=== PATIENT | female | born 1945 | race African-American/Black ===

== ENCOUNTER → 2018-05-19 14:25 | Outpatient (CLI) | payer MEDICARE, MEDICAID, SELFPAY ==
[2018-05-19 16:14] LABS: Basophils # 0.1 K/mm3 (0-0.2); Basophils % 0.9 % (0.1-2.0); Eosinophils % 0.3 % (0.1-12.0); Hematocrit 54.7 % (37.0-47.0); Hemoglobin 16.3 g/dL (12.2-16.2); Lymphocytes # 1.5 K/mm3 (0.7-4.5); Lymphocytes % 28.7 K/mm3 (10-50); Mean Corpuscular HGB Conc 29.7 g/dL (31.8-35.4); Mean Platelet Volume 7.6 fl (7.4-10.4); Monocytes # 0.4 K/mm3 (0.1-1.0); Monocytes % 7.3 % (1.7-9.3); Neutrophils # 3.3 K/mm3 (1.8-7.8); Neutrophils % 62.8 % (37.0-80.0); Platelet Count 221 K/mm3 (142-424); Red Blood Count 5.82 M/mm3 (4.20-5.40); Red Cell Distribution Width 16.6 % (11.5-17.5); White Blood Count 5.2 K/mm3 (4.8-10.8)
[2018-05-19 18:20] LABS: Alanine Aminotransferase 16 U/L (12-78); Albumin Level 4.2 gm/dL (3.4-5.0); Albumin/Globulin Ratio 0.9 (1.1-1.8); Alkaline Phosphatase 130 U/L (46-116); Anion Gap 12.8 mEq/L (5-15); Aspartate Amino Transferase 11 U/L (15-37); Bilirubin,Total 0.7 mg/dL (0.2-1.0); Blood Urea Nitrogen 16 mg/dL (7-18); Calcium 9.7 mg/dL (8.5-10.1); Carbon Dioxide 29 mmol/L (21.0-32.0); Chloride 102 mmol/L (98-107); Creatinine,Serum 1.04 mg/dL (0.55-1.02); Estimated Glomerular Filt Rate 52 ml/min (>60); GFR (African American) 63 ML/MIN (>60); Globulin 4.8 gm/dl (1.3-3.2); Glucose 74 mg/dL (74-106); Potassium 4.8 mmoL/L (3.5-5.1); Sodium 139 mmol/L (136-145)
== END ==
PROVIDERS: Visit Provider Nurse Practitioner
DX: C50.912 Malignant neoplasm of unspecified site of left female breast (principal); R63.4 Abnormal weight loss
CPT/HCPCS: 36415; 80053; 85025

== ENCOUNTER → 2018-05-21 14:55 | Outpatient (CLI) | payer MEDICARE, MEDICAID, SELFPAY ==
--- NOTE | 2018-05-21 14:59 | MM_ITS ---
MM Dig mamm DX unilat LT CAD COMPARISON: Digital mammograms with CAD 10/01/2017 INDICATION: The patient has known left breast cancer post biopsy and currently on medication per Dr. Porras TECHNIQUE: Cc view, exaggerated cc view ,standard MLO view and 90 degrees lateral view FINDINGS: There has been interval growth of the biopsy site since the previous exam with suspicious somewhat spiculated borders more evident on today's study than on the previous mammogram. The remainder of the breast parenchyma shows rather heterogenic appearance. There is no obvious abnormal adenopathy in the axilla. IMPRESSION: Interval growth of the patient's known breast cancer 6:00 position with biopsy clip in place area measurements of the lesion in the MLO projection a 1.7 x 1.2 cm whereas previously the lesion measured 1.2 x 0.8 cm. BI-RADS Category: 5 Highly Suggestive of Malignancy RECOMMENDED FOLLOW-UP: 6M - 6 MONTH FOLLOW-UP (A letter has been sent to the patient regarding results of the study.)
== END ==
PROVIDERS: Family Provider Emergency Medicine; PCP Emergency Medicine; Visit Provider Internal Medicine
DX: C50.912 Malignant neoplasm of unspecified site of left female breast (principal); R63.4 Abnormal weight loss
CPT/HCPCS: 77065

== ENCOUNTER → 2018-06-10 07:46 | Outpatient (CLI) | payer MEDICARE, MEDICAID, SELFPAY ==
[2018-06-10 08:08] LABS: Basophils % 0.7 % (0.1-2.0); Eosinophils # 0.1 K/mm3 (0.0-0.4); Hematocrit 51.9 % (37.0-47.0); Hemoglobin 16.1 g/dL (12.2-16.2); Lymphocytes # 1.3 K/mm3 (0.7-4.5); Lymphocytes % 27.1 K/mm3 (10-50); Mean Corpuscular HGB Conc 30.9 g/dL (31.8-35.4); Mean Corpuscular Hemoglobin 28.1 pg (27.0-31.2); Mean Platelet Volume 6.2 fl (7.4-10.4); Monocytes # 0.3 K/mm3 (0.1-1.0); Monocytes % 6.5 % (1.7-9.3); Neutrophils % 64.8 % (37.0-80.0); Platelet Count 152 K/mm3 (142-424); Red Blood Count 5.71 M/mm3 (4.20-5.40); Red Cell Distribution Width 17.1 % (11.5-17.5); White Blood Count 4.7 K/mm3 (4.8-10.8)
[2018-06-10 08:19] LABS: Alanine Aminotransferase 15 U/L (12-78); Albumin Level 3.4 gm/dL (3.4-5.0); Albumin/Globulin Ratio 0.8 (1.1-1.8); Alkaline Phosphatase 109 U/L (46-116); Anion Gap 10.1 mEq/L (5-15); Aspartate Amino Transferase 7 U/L (15-37); Bilirubin,Total 0.7 mg/dL (0.2-1.0); Blood Urea Nitrogen 10 mg/dL (7-18); Carbon Dioxide 33 mmol/L (21.0-32.0); Chloride 105 mmol/L (98-107); Creatinine,Serum 1.09 mg/dL (0.55-1.02); Estimated Glomerular Filt Rate 49 ml/min (>60); GFR (African American) 60 ML/MIN (>60); Globulin 4.1 gm/dl (1.3-3.2); Glucose 86 mg/dL (74-106); Potassium 4.1 mmoL/L (3.5-5.1); Sodium 144 mmol/L (136-145); Total Protein,Serum 7.5 gm/dL (6.4-8.2)
--- NOTE | 2018-06-10 09:16 | US_ITS ---
US biopsy guidance, US breast LT complete HISTORY: Left breast mass, history of breast cancer ITS.REASON: HEMANGIOLA ORDERING PHYSICIAN: Francisco Cook MD PATIENT AGE: 72 years COMPARISON: 05/21/2018 Left breast ultrasound: Previous mammogram showed an enlarging spiculated lesion in the biopsy bed in the inferior aspect of the left breast. Prebiopsy images confirm the presence of a 1.9 x 0.7 x 1 cm nodule in the left breast at the 6:00 region near the nipple. This is hypoechoic with spiculated margins and poor through transmission of sound highly suspicious for breast cancer. This was the nodule that was targeted for biopsy. TECHNIQUE: Following obtaining informed consent, using aseptic technique and local anesthesia with buffered lidocaine, fine-needle aspiration was performed of the nodule of interest using sonographic guidance. 3 passes were made into the nodule with with a 21-gauge and then a 19-gauge needle. Specimen was given to cytology. The patient tolerated the procedure well without evidence of immediate complications and left the ultrasound suite in stable condition. CYTOLOGY: Invasive mammary carcinoma with ductal features IMPRESSION: Left breast biopsy demonstrates invasive mammary carcinoma with ductal features. No immediate complications
== END ==
PROVIDERS: Family Provider Emergency Medicine; PCP Emergency Medicine; Visit Provider Internal Medicine
DX: R92.8 Other abnormal and inconclusive findings on diagnostic imaging of breast (principal); C50.412 Malignant neoplasm of upper-outer quadrant of left female breast
CPT/HCPCS: 19083; 36415; 76641; 76942; 80053; 85025; 88173; 88305

== ENCOUNTER → 2018-07-13 10:28 | Outpatient (CLI) | payer MEDICARE, MEDICAID, SELFPAY ==
--- NOTE | 2018-07-13 10:31 | CT_ITS ---
CT chest w con HISTORY: Follow-up breast cancer, follow-up pulmonary nodule ITS.REASON: breast cancer ORDERING PHYSICIAN: Chica Medina MD PATIENT AGE: 72 years COMPARISON: 10/05/2017 TECHNIQUE: Axial images obtained following the administration of 75 mL of Isovue 370 . Sagittal, and coronal reformatted images are also generated and reviewed. All CT scans at the facility use one or more dose reduction, viz: automated exposure control, ma/kV adjustment per patient size (including targeted exams where dose is matched to indication, i.e. head), or iterative reconstruction technique. 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 Coronary artery calcifications are present. No mediastinal or hilar mass or adenopathy. Coronary artery calcifications are present. No evidence of aortic aneurysm or dissection. No central pulmonary embolus apparent. There are moderate to severe centrilobular emphysematous changes with pulmonary fibrosis. There is a 6 mm right middle lobe pulmonary nodule not significant changed. There are atelectatic changes in the lung bases. No new nodules are evident. No effusions or infiltrates. Dependent changes are present in the left upper lobe posteriorly. No acute bony anomalies. Postsurgical changes are present involving the left breast. IMPRESSION: 1. Stable CT appearance of the chest with no convincing evidence of metastatic disease. 2. Centrilobular emphysema with pulmonary fibrosis 3. Stable 6 mm right middle lobe nodule
--- NOTE | 2018-07-13 10:31 | CT_ITS ---
CT abdomen pelvis w con CLINICAL INDICATION: Follow-up breast cancer ITS.REASON: breast cancer ORDERING PHYSICIAN: Chica Medina MD PATIENT AGE: 72 years COMPARISON: 11/23/2015 TECHNIQUE: Axial images obtained with sagittal and coronal reformats. All CT scans at the facility use one or more dose reduction, viz: automated exposure control, ma/kV adjustment per patient size (including targeted exams where dose is matched to indication, i.e. head), or iterative reconstruction technique. PROCEDURE: Oral Contrast: Redicat IV Contrast: 75 mL's of Isovue-370 performed in conjunction with the chest CT. FINDINGS: The liver, spleen, and pancreas have an unremarkable appearance. Gallstones are noted.. There is diffuse bilateral renal scarring with cortical irregularity of both kidneys. There are nonobstructing bilateral renal calculi measuring up to 4 mm on the right and 4 mm on the left. The adrenal glands aren't enlarged bilaterally similar to the previous exam probably related to adenomatous formation. There is a moderate amount of colonic feces in the rectum consistent with rectal fecal impaction. No intestinal obstruction or free air. No evidence of appendicitis or diverticulitis. There are gas-filled loops small and large bowel which are nondilated. 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 Fibrous dysplasia is also a consideration. This is not significant changed IMPRESSION: 1. Overall stable CT appearance of the abdomen and pelvis with no convincing evidence of metastatic disease. 2. Bilateral adrenal enlargement related to adenomatous 3. 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 Rectal fecal impaction
== END ==
PROVIDERS: Family Provider Emergency Medicine; PCP Emergency Medicine; Visit Provider Internal Medicine Medical Oncology
DX: C50.919 Malignant neoplasm of unspecified site of unspecified female breast (principal)
CPT/HCPCS: 71260; 74177; Q9967

== ENCOUNTER → 2018-08-09 15:45 | Outpatient (CLI) | payer MEDICARE, MEDICAID, SELFPAY ==
--- NOTE | 2018-08-09 15:47 | MM_ITS ---
MM Dig mamm DX unilat RT CAD INDICATION: Left-sided Breast cancer ORDERING PHYSICIAN: Haider Beauchamp MD PATIENT AGE: 73 years COMPARISON: None TECHNIQUE: Standard images performed FINDINGS: There is dense fibroglandular tissue. No malignant appearing mass or malignant appearing microcalcification is evident. There are benign-appearing calcifications. A metallic suture is noted in the outer aspect of the right breast. IMPRESSION: Unremarkable right mammogram. Ultrasound of any palpable nodule would be recommended. Known left-sided breast cancer from previous biopsy. BI-RADS Category 2, benign for the right side only. There is known malignancy on the left side. Recommendations: Correlation with physical exam due to the dense breast tissue. If there is any palpable nodule, then further evaluation should be obtained with ultrasound (A letter has been sent to the patient regarding results of the study.)
== END ==
PROVIDERS: Family Provider Emergency Medicine; PCP Emergency Medicine; Visit Provider Emergency Medicine
DX: N63.10 Unspecified lump in the right breast, unspecified quadrant (principal); Z85.3 Personal history of malignant neoplasm of breast
CPT/HCPCS: 77065

== ENCOUNTER → 2018-08-23 12:03 | Outpatient (CLI) | payer MEDICARE, MEDICAID, SELFPAY ==
[2018-08-23 15:13] LABS: Alanine Aminotransferase 13 U/L (12-78); Albumin Level 3.4 gm/dL (3.4-5.0); Alkaline Phosphatase 81 U/L (46-116); Anion Gap 13.2 mEq/L (5-15); Aspartate Amino Transferase 12 U/L (15-37); Bilirubin,Total 0.5 mg/dL (0.2-1.0); Blood Urea Nitrogen 16 mg/dL (7-18); Carbon Dioxide 27 mmol/L (21.0-32.0); Chloride 105 mmol/L (98-107); Creatinine,Serum 0.92 mg/dL (0.55-1.02); Estimated Glomerular Filt Rate 60 ml/min (>60); GFR (African American) 72 ML/MIN (>60); Globulin 3.5 gm/dl (1.3-3.2); Glucose 82 mg/dL (74-106); Potassium 4.2 mmoL/L (3.5-5.1); Sodium 141 mmol/L (136-145); Total Protein,Serum 6.9 gm/dL (6.4-8.2)
== END ==
PROVIDERS: Family Provider Emergency Medicine; PCP Emergency Medicine; Visit Provider Surgery
DX: C50.912 Malignant neoplasm of unspecified site of left female breast (principal)
CPT/HCPCS: 36415; 80053

== ENCOUNTER 2018-09-09 11:37 | Observation (INO) ==
--- NOTE | 2018-09-09 12:23 | Emergency Department Note ---
ED Disposition Clinical Impression: Acute exacerbation of chronic obstructive airways disease Pneumonia Qualifiers: Pneumonia type: due to unspecified organism Laterality: right Lung location: lower lobe of lung Qualified Code(s): J18.1 - Lobar pneumonia, unspecified organism Lung cancer Qualifiers: Laterality: right Lung location: middle lobe of lung Qualified Code(s): C34.2 - Malignant neoplasm of middle lobe, bronchus or lung Disposition: Admitted as Observation Condition on Discharge: Fair Referrals: Provider,Referral, MD [Primary Care Provider] - - Critical Care Critical Care Time: Yes (45) Attestation: On 09/09/18, the high probability of a clinically significant, sudden or life threatening deterioration of the following system(s) required my full and direct attention, intervention and personal management. The time I documented below is in addition to time spent performing reported procedures but includes the following listed in this critical care notation. Vital system(s) involved:: Respiratory Failure My critical care processes included: Assessment & monitoring of V/S, Initial and Re-exams, Data Review/Interpretation, Coordinating Care, Medication Orders and management, Documentation Medical Decision Making - Medical Records Medical records reviewed: Yes: I reviewed the patient's medical records. - Jonathan Inquiry Pt receiving controlled substance: No Jonathan was queried for this patient: No Vital Signs: 09/09/18 11:38 09/09/18 12:00 09/09/18 12:20 Temperature 98.4 F Temperature Source Oral Pulse Rate 92 H Pulse Rate [Left Radial] 94 H 93 H Respiratory Rate 18 Blood Pressure [Right Arm] 127/84 132/79 Blood Pressure Mean [Right Arm] 98 96 Blood Pressure Source [Right Arm] Automatic Cuff Automatic Cuff Blood Pressure Position [Right Arm] Sitting Sitting 02 Sat by Pulse Oximetry 95 96 96 Oxygen Delivery Method Room Air Nasal Cannula Oxygen Flow Rate (LPM) 2 09/09/18 12:32 09/09/18 14:02 Temperature 98.7 F Temperature Source Oral Pulse Rate Pulse Rate [Left Radial] 92 H 105 H Respiratory Rate 20 Blood Pressure [Right Arm] 147/73 H 166/84 H Blood Pressure Mean [Right Arm] 97 111 Blood Pressure Source [Right Arm] Automatic Cuff Automatic Cuff Blood Pressure Position [Right Arm] Sitting Sitting 02 Sat by Pulse Oximetry 94 L 93 L Oxygen Delivery Method Room Air Oxygen Flow Rate (LPM) - Lab Data Lab Results 09/09/18 12:23: WBC 4.9, RBC 4.91, Hgb 13.9, Hct 45.2, MCV 92.1, MCH 28.3, MCHC 30.7 L, RDW 16.5, Plt Count 308, MPV 6.7 L, Neut % (Auto) 66.2, Lymph % (Auto) 25.3, [place] % (Auto) 7.8, Eos % (Auto) 0.3, Baso % (Auto) 0.4, Neut # (Auto) 3.2, Lymph # (Auto) 1.2, [place] # (Auto) 0.4, Eos # (Auto) 0.0, Baso # (Auto) 0.0 09/09/18 12:23: Sodium 141, Potassium 3.9, Chloride 105, Carbon Dioxide 26, Anion Gap 13.9, BUN 11, Creatinine 1.02, Estimated Creat Clear 43, Estimated GFR 53 L, Est GFR ( Amer) 64, Glucose 96, Calcium 8.9 09/09/18 12:23: Lactate 1.1 Result diagrams: 09/09/18 12:23 09/09/18 12:23 Orders (Tests/Meds): ED MEDICATIONS Discontinued Medications Generic Name Dose Route Start Last Admin Trade Name Freq PRN Reason Stop Dose Admin Albuterol/Ipratropium 3 ml 09/09/18 12:18 09/09/18 12:20 Duoneb 3ml Neb IH 09/09/18 12:19 3 ml ONCE ONE Administration Azithromycin 500 mg 09/09/18 14:34 09/09/18 14:38 Zithromax 250mg Tablet PO 09/09/18 14:35 500 mg ONCE ONE Administration Protocol Methylprednisolone Sodium Succinate 125 mg 09/09/18 12:18 09/09/18 12:27 Solu-Medrol 125mg/2ml Vial IV 09/09/18 12:19 125 mg ONCE ONE Administration ORDERS Category Date Time Status Blood Culture Stat Micro 09/09/18 11:59 Ordered - Radiology Data #1 Image(s): Chest Image Reviewed: Yes I reviewed the patient's radiology results, Yes I have revie wed radiologist's interpretation Preliminary Findings: Abnormal RLL infiltrate - Physician Consults Physician Consulted: Nito Time: 15:00 Reason -: Pt condition Comment/Response: Admit for management of pneumonia - Reevaluation(s) Time: 15:10 (Wants to go home. Feels better) Resp/SOB HPI - General Chief Complaint: Shortness of Breath/Dyspnea Stated Complaint: SOA Time Seen by Provider: 09/09/18 12:20 Mode of Arrival: EMS Limitations: No Limitations Description of Symptoms (Recalled from ER Triage Doc. by RN): PT c/o SOA, cough and weakness that started today. - History of Present Illness MD Complaint: shortness of breath, cough Onset (ago): day(s) (today) Severity: moderate Consistency/Duration: constant Relieving factors: oxygen, bronchodilators Exacerbating factors: nothing Known history of: COPD Associated symptoms: cough, wheezing Treatment prior to arrival: oxygen, bronchodilator - Related Data Home oxygen amount: none Home Medications Medication Instructions Recorded Confirmed Acetaminophen [Acetaminophen Extra 500 mg PO NEEDED PRN 04/09/18 09/09/18 Strength] Amlodipine Besylate [Norvasc 10mg 10 mg PO DAILY 04/09/18 09/09/18 tablet] Cilostazol [Pletal 100mg tablet] 100 mg PO BID 04/09/18 09/09/18 Levalbuterol HCl [Levalbuterol 1.25 mg IH TID 04/09/18 09/09/18 Concentrate] Mirtazapine 45 mg PO DAILY 04/09/18 09/09/18 OLANZapine [Olanzapine] 20 mg PO DAILY 04/09/18 09/09/18 Valproic Acid (As Sodium Salt) 375 mg PO TID 04/09/18 09/09/18 [Valproic Acid] docusate sodium 250 mg capsule 250 mg PO DAILY 08/23/18 09/09/18 ibuprofen 400 mg tablet 400 mg PO BID PRN 08/23/18 09/09/18 megestrol 400 mg/10 mL (40 mg/mL) 100 mg PO QID 08/23/18 09/09/18 oral suspension polyethylene glycol 3350 17 1 dose PO DAILY g 08/23/18 09/09/18 gram/dose oral powder Allergies Allergy/AdvReac Type Severity Reaction Status Date / Time No Known Allergies Allergy Verified 08/23/18 10:22 [facility] History I have reviewed the patient's past medical history: Yes Medical History: Reports:: Cancer Other Medical History: Reports: Other Other Surgeries: Yes: No Previous Surgery Amputation: No Fractures: No - Social History Smoking Status: Current every day smoker Tobacco Type: cigarettes # Packs/Day (cigarettes): 1 Alcohol Intake: never Substance Use Type: denies use Occupational Status: disabled, unemployed Housing: long term Household Members: other - Psychiatric History Expresses thoughts of harming self/others: None Suicide Plan Description: No Plan Pschychiatric History:: Reports:: Schizophrenia Family Hx:: Unable to obtain ROS Obtained: Yes All systems reviewed & no additional complaints - Constitutional Constitutional: Reports system reviewed and no additional complaints, except as docu - ENT Ears, Nose, Mouth, and Throat: Reports system reviewed and no additional complaints, except as docu - Cardiovascular Cardiovascular: Reports system reviewed and no additional complaints, except as docu, Denies chest pain, Reports dyspnea, Denies edema, Denies lightheadedness, Denies palpitations - Respiratory Respiratory: Yes system reviewed and no additional complaints, except as docu, Yes cough, Yes dyspnea, Yes wheezing - Gastrointestinal Gastrointestingal: Reports: system reviewed and no additional complaints, except as docu - Neurologic Neurologic: Reports system reviewed and no additional complaints, except as docu Physical Exam - General General appearance: alert, in no apparent distress - Head Head exam: atraumatic, normocephalic, normal inspection - Eye Eye exam: Present: normal appearance, PERRL, EOMI - Chest Chest inspection: Present: normal inspection, symmetric chest wall rise. Absent: tenderness - Respiratory Respiratory exam: Present: normal lung sounds bilaterally, respiratory distress (mild) - Cardiovascular Cardiovascular exam: Present: regular rate, normal rhythm. Absent: JVD - Abdominal Exam Abdominal exam: Present: soft, normal bowel sounds. Absent: distention, tenderness, guarding - Neurological Exam Neurological exam: Present: alert, oriented X3 - Psychiatric Psychiatric exam: Present: normal affect, normal mood
[2018-09-09 12:38] LABS: Basophils % 0.4 % (0.1-2.0); Eosinophils % 0.3 % (0.1-12.0); Hematocrit 45.2 % (37.0-47.0); Hemoglobin 13.9 g/dL (12.2-16.2); Lymphocytes # 1.2 K/mm3 (0.7-4.5); Lymphocytes % 25.3 % (10-50); Mean Corpuscular HGB Conc 30.7 g/dL (31.8-35.4); Mean Corpuscular Hemoglobin 28.3 pg (27.0-31.2); Mean Corpuscular Volume 92.1 fl (81-99); Mean Platelet Volume 6.7 fl (7.4-10.4); Monocytes # 0.4 K/mm3 (0.1-1.0); Monocytes % 7.8 % (1.7-9.3); Neutrophils # 3.2 K/mm3 (1.8-7.8); Neutrophils % 66.2 % (37.0-80.0); Platelet Count 308 K/mm3 (142-424); Red Blood Count 4.91 M/mm3 (4.20-5.40); Red Cell Distribution Width 16.5 % (11.5-17.5); White Blood Count 4.9 K/mm3 (4.8-10.8)
[2018-09-09 12:44] LABS: Anion Gap 13.9 mEq/L (5-15); Calcium 8.9 mg/dL (8.5-10.1); Potassium 3.9 mmoL/L (3.5-5.1)
--- NOTE | 2018-09-09 16:36 | Pharmacy Consult Notes ---
[facility] [place] Pharmacy VTE Monitoring - Patient Demographics Admission date: 09/09/18 Report Date: 09/09/18 Time: 16:36 Allergies/Adverse Reactions: Patient Allergies No Known Allergies Allergy (Verified 08/23/18 10:22) Height: 1.65 m Weight: 56.699 kg Patient Problems: Current Active Problems Acute exacerbation of chronic obstructive airways disease (Acute) Pneumonia (Acute) Lung cancer (Acute) - VTE Risk Labs: VTE Related Lab Results Hgb 13.9 g/dL (12.2-16.2) 09/09/18 12:23 Hct 45.2 % (37.0-47.0) 09/09/18 12:23 Plt Count 308 K/mm3 (142-424) 09/09/18 12:23 BUN 11 mg/dL (7-18) 09/09/18 12:23 Creatinine 1.02 mg/dL (0.55-1.02) 09/09/18 12:23 Estimated Creat Clear 43 mL/min (0-300) 09/09/18 12:23 - Prophylaxis VTE Prophylaxis Ordered?: Yes Types of VTE Prophylaxis: TEDS Knee High Location of Applied Device: Bilateral Lower Extremeties - VTE Diagnosis Confirmed Treatment or plan recommended: Continue Current Treatment
--- NOTE | 2018-09-09 20:59 | History & Physical Report ---
*Admission Date: 09/09/18 *Chief complaint: sob *History of present illness: pt with sob and cough and weakness at [facility] and dec po intake - she is tob user and has known breast cancer c/o SOA, cough and weakness that started today. [facility] History I have reviewed the patient's past medical history: Yes Medical History: Reports:: Cancer, Hypertension Other Medical History: Reports: Other Other Surgeries: Yes: No Previous Surgery Amputation: No Fractures: No - *Social History Smoking Status: Current every day smoker Tobacco Type: cigarettes # Packs/Day (cigarettes): 1 Alcohol Intake: current Alcohol Intake Frequency:: holidays/special occasions only Substance Use Type: denies use Occupational Status: disabled, unemployed Housing: snf Household Members: other - Psychiatric History Expresses thoughts of harming self/others: None Suicide Plan Description: No Plan Pschychiatric History:: Reports:: Schizophrenia *Family Hx:: Unable to obtain Review of Systems - Review of Systems Review of systems:: pertinent systems reviewed and negative unless documented below - Constitutional Reports weakness, Denies fever(s) - Eyes Denies change in vision - ENT Denies sore throat - *Cardiovascular Denies chest pain with activity - *Respiratory Reports cough, Denies coughing up blood - *Gastrointestinal Denies abdominal pain, Denies vomiting - *Genitourinary Denies blood in urine - *Musculoskeletal Reports joint pain - Integumentary/Breasts Denies rash - *Neurologic Denies seizure-like activity - Psychiatric Reports anxiety Meds Home Medications Medication Instructions Recorded Confirmed Type Acetaminophen [Acetaminophen Extra 500 mg PO Q4HP PRN 04/09/18 09/09/18 History Strength] Amlodipine Besylate [Norvasc 10mg 10 mg PO DAILY 04/09/18 09/09/18 History tablet] Cilostazol [Pletal 100mg tablet] 100 mg PO BID 04/09/18 09/09/18 History Levalbuterol HCl [Levalbuterol 1.25 mg IH TIDP PRN 04/09/18 09/09/18 History Concentrate] OLANZapine [Olanzapine] 20 mg PO DAILY 04/09/18 09/09/18 History Valproic Acid (As Sodium Salt) 375 mg PO TID 04/09/18 09/09/18 History [Valproic Acid] docusate sodium 250 mg capsule 250 mg PO DAILY 08/23/18 09/09/18 History ibuprofen 400 mg tablet 400 mg PO Q4HP PRN 08/23/18 09/09/18 History megestrol 400 mg/10 mL (40 mg/mL) 100 mg PO QID 08/23/18 09/09/18 History oral suspension polyethylene glycol 3350 17 17 gm PO DAILY g 08/23/18 09/09/18 History gram/dose oral powder Albuterol Sulfate [Albuterol HFA 2 puffs IH Q4HP PRN 09/09/18 09/09/18 History Inhaler] Doxepin HCl [Sinequin 50mg capsule] 50 mg PO HS 09/09/18 09/09/18 History Fluticasone/Vilanterol [Breo 1 puff IH DAILY 09/09/18 09/09/18 History Ellipta 100-25 Mcg INH] Letrozole [Femara] 2.5 mg PO DAILY 09/09/18 09/09/18 History Mirtazapine 45 mg PO DAILY 09/09/18 09/09/18 History Quetiapine Fumarate 200 mg PO DAILY 09/09/18 09/09/18 History Quetiapine Fumarate 400 mg PO HS 09/09/18 09/09/18 History Trazodone HCl 200 mg PO HS 09/09/18 09/09/18 History Allergies Allergy/AdvReac Type Severity Reaction Status Date / Time No Known Allergies Allergy Verified 08/23/18 10:22 Exam Vital signs and Labs for Last 24 Hours: Temp Pulse Resp BP Pulse Ox 98.0 F 92 H 18 150/83 H 93 L 09/09/18 20:00 09/09/18 20:00 09/09/18 20:00 09/09/18 20:00 09/09/18 20:21 Laboratory Results - last 24 hr 09/09/18 12:23: WBC 4.9, RBC 4.91, Hgb 13.9, Hct 45.2, MCV 92.1, MCH 28.3, MCHC 30.7 L, RDW 16.5, Plt Count 308, MPV 6.7 L, Neut % (Auto) 66.2, Lymph % (Auto) 25.3, [place] % (Auto) 7.8, Eos % (Auto) 0.3, Baso % (Auto) 0.4, Neut # (Auto) 3.2, Lymph # (Auto) 1.2, [place] # (Auto) 0.4, Eos # (Auto) 0.0, Baso # (Auto) 0.0 09/09/18 12:23: Sodium 141, Potassium 3.9, Chloride 105, Carbon Dioxide 26, Anion Gap 13.9, BUN 11, Creatinine 1.02, Estimated Creat Clear 43, Estimated GFR 53 L, Est GFR ( Amer) 64, Glucose 96, Calcium 8.9 09/09/18 12:23: Lactate 1.1 I & O for Last 24 hours: Intake & Output 09/07/18 09/08/18 09/09/18 09/10/18 11:59 11:59 11:59 11:59 Intake Total 240 / 240 Balance 240 / 240 Weight 125 lb 103 lb 0.964 oz - Constitutional no acute distress, thin, chronically ill appearing - *Routine HEENT Exam Head: Present: normocephalic Eye: Present: EOMI, PERRL ENT: Present: mucous membranes dry - *Routine Neck Exam Absent: JVD - *Routine Respiratory Exam Present: decreased breath sounds - *Routine Cardiovascular Exam Present: RRR, murmur, rubs - *Routine Abdominal Exam Present: soft - *Routine Extremities Exam Absent: Amari's sign - *Routine Skin Exam Present: intact - *Routine Neurological Exam Present: alert, CN II-XII intact - Routine Psychiatric Exam Present: unable to assess Assessment and Plan (1) CAP (community acquired pneumonia) Current visit: Yes Status: Acute Category: Medical Code(s): J18.9 - Pneumonia, unspecified organism (2) Tobacco use Current visit: Yes Status: Acute Category: Medical Code(s): Z72.0 - Tobacco use (3) Low body mass index (BMI) Current visit: Yes Status: Acute Category: Medical (4) Breast cancer Current visit: Yes Status: Acute Category: Medical Code(s): C50.919 - Malignant neoplasm of unspecified site of unspecified female breast
[2018-09-10 06:45] LABS: Basophils % 0.2 % (0.1-2.0); Hematocrit 39.6 % (37.0-47.0); Lymphocytes # 1.2 K/mm3 (0.7-4.5); Lymphocytes % 12.5 % (10-50); Mean Corpuscular HGB Conc 30.7 g/dL (31.8-35.4); Mean Corpuscular Hemoglobin 28.2 pg (27.0-31.2); Mean Corpuscular Volume 91.8 fl (81-99); Mean Platelet Volume 6.8 fl (7.4-10.4); Monocytes # 0.7 K/mm3 (0.1-1.0); Monocytes % 6.9 % (1.7-9.3); Neutrophils # 7.9 K/mm3 (1.8-7.8); Neutrophils % 80.3 % (37.0-80.0); Platelet Count 312 K/mm3 (142-424); Red Blood Count 4.31 M/mm3 (4.20-5.40); Red Cell Distribution Width 16.5 % (11.5-17.5); White Blood Count 9.8 K/mm3 (4.8-10.8)
[2018-09-10 06:54] LABS: Hemoglobin 12.2 g/dL (12.2-16.2)
[2018-09-10 06:55] LABS: Calcium 8.6 mg/dL (8.5-10.1)
--- NOTE | 2018-09-10 08:26 | Progress Note ---
Internal Medicine - PN: Subj *Date: 09/10/18 *Time: 08:25 Exam Vital signs and Labs for Last 24 Hours: Temp Pulse Resp BP Pulse Ox 98.4 F 96 H 18 135/87 95 09/10/18 04:00 09/10/18 04:00 09/10/18 04:00 09/10/18 04:00 09/10/18 04:00 Laboratory Results - last 24 hr 09/09/18 12:23: WBC 4.9, RBC 4.91, Hgb 13.9, Hct 45.2, MCV 92.1, MCH 28.3, MCHC 30.7 L, RDW 16.5, Plt Count 308, MPV 6.7 L, Neut % (Auto) 66.2, Lymph % (Auto) 25.3, [place] % (Auto) 7.8, Eos % (Auto) 0.3, Baso % (Auto) 0.4, Neut # (Auto) 3.2, Lymph # (Auto) 1.2, [place] # (Auto) 0.4, Eos # (Auto) 0.0, Baso # (Auto) 0.0 09/09/18 12:23: Sodium 141, Potassium 3.9, Chloride 105, Carbon Dioxide 26, Anion Gap 13.9, BUN 11, Creatinine 1.02, Estimated Creat Clear 43, Estimated GFR 53 L, Est GFR ( Amer) 64, Glucose 96, Calcium 8.9 09/09/18 12:23: Lactate 1.1 09/10/18 06:10: WBC 9.8 D, RBC 4.31, Hgb 12.2 D, Hct 39.6, MCV 91.8, MCH 28.2, MCHC 30.7 L, RDW 16.5, Plt Count 312, MPV 6.8 L, Neut % (Auto) 80.3 H, Lymph % (Auto) 12.5, [place] % (Auto) 6.9, Eos % (Auto) 0.0 L, Baso % (Auto) 0.2, Neut # (Auto) 7.9 H, Lymph # (Auto) 1.2, [place] # (Auto) 0.7, Eos # (Auto) 0.0, Baso # (Auto) 0.0 09/10/18 06:10: Sodium 141, Potassium 4.0, Chloride 107, Carbon Dioxide 23, Anion Gap 15.0, BUN 14 D, Creatinine 1.06 H, Estimated Creat Clear 34, Estimated GFR 51 L, Est GFR ( Amer) 61, Glucose 90, Calcium 8.6, Magnesium 2.0 09/10/18 06:10: Troponin I < 0.02 09/10/18 06:10: Total Valproic Acid 46.6 L I & O for Last 24 hours: Intake & Output 09/07/18 09/08/18 09/09/18 09/10/18 11:59 11:59 11:59 11:59 Intake Total 720 / 720 Balance 720 / 720 Weight 125 lb 103 lb 0.964 oz - *Routine HEENT Exam Head: Present: normocephalic Eye: Present: PERRL ENT: Present: mucous membranes moist - *Routine Neck Exam Present: supple. Absent: lymphadenopathy - *Routine Respiratory Exam Present: wheezes - *Routine Cardiovascular Exam Present: RRR - *Routine Abdominal Exam Present: soft, normoactive bowel sounds. Absent: tenderness - *Routine Extremities Exam Absent: cyanosis, clubbing, edema - *Routine Skin Exam Present: warm. Absent: rash - *Routine Neurological Exam Present: alert, oriented X3 Assessment and Plan (1) CAP (community acquired pneumonia) Current visit: Yes Status: Acute Category: Medical Code(s): J18.9 - Pneumonia, unspecified organism (2) Tobacco use Current visit: Yes Status: Acute Category: Medical Code(s): Z72.0 - Tobacco use (3) Low body mass index (BMI) Current visit: Yes Status: Acute Category: Medical (4) Breast cancer Current visit: Yes Status: Acute Category: Medical Code(s): C50.919 - Malignant neoplasm of unspecified site of unspecified female breast - Assessment and plan all Dx Assessment and Plan for all problems:: rounded with demar all orders per demar
--- NOTE | 2018-09-10 08:34 | Consult Report ---
Addendum entered and electronically signed by AYESHA Burden 09/10/18 15:35: Echocardiogram shows preserved ejection fraction at 55-60%. Patient is noted to have an elevated right ventricular systolic pressure at 60 mmHg consistent with moderate pulmonary hypertension. Pulmonary hypertension is likely related to the patient long-term tobacco use. Patient would benefit from low-dose diuretics. Okay for discharge back to extended care facility from a cardiology standpoint. Patient is an acceptable risk from cardiology standpoint for surgery. Original Note: History of Present Illness Consult date: 09/10/18 Requesting physician: Haider Beauchamp Consult reason: pre-op evaluation Chief complaint: Pre-op evaluation Additional Medical History:: 1. Tobacco use 2. History of schizophrenia 3. Hypertension History of present illness: 73-year-old -[place] female resident of a local extended care facility admitted for right-sided pneumonia with known breast cancer and plans for left mastectomy next week. Patient has some shortness of breath associated with pneumonia. Cardiology was consulted for evaluation and also preop evaluation for surgery next week. Patient denies any history of cardiac symptoms. She does smoke about a pack a day. She does have a history of schizophrenia for which she takes medication along with medication for hypertension. No previous cardiac workup known. EKG today is sinus rhythm without acute ST segment abnormalities. [facility] History Medical History: Reports:: Cancer, Hypertension Other Medical History: Reports: Other Other Surgeries: Yes: No Previous Surgery Amputation: No Fractures: No - *Social History Smoking Status: Current every day smoker Tobacco Type: cigarettes # Packs/Day (cigarettes): 1 Alcohol Intake: current Alcohol Intake Frequency:: holidays/special occasions only Substance Use Type: denies use Occupational Status: disabled, unemployed Housing: correction Household Members: other - Psychiatric History Expresses thoughts of harming self/others: None Suicide Plan Description: No Plan Pschychiatric History:: Reports:: Schizophrenia *Family Hx:: Unable to obtain Meds Home Medications Medication Instructions Recorded Confirmed Type Acetaminophen [Acetaminophen Extra 500 mg PO Q4HP PRN 04/09/18 09/09/18 History Strength] Amlodipine Besylate [Norvasc 10mg 10 mg PO DAILY 04/09/18 09/09/18 History tablet] Cilostazol [Pletal 100mg tablet] 100 mg PO BID 04/09/18 09/09/18 History Levalbuterol HCl [Levalbuterol 1.25 mg IH TIDP PRN 04/09/18 09/09/18 History Concentrate] OLANZapine [Olanzapine] 20 mg PO DAILY 04/09/18 09/09/18 History Valproic Acid (As Sodium Salt) 375 mg PO TID 04/09/18 09/09/18 History [Valproic Acid] docusate sodium 250 mg capsule 250 mg PO DAILY 08/23/18 09/09/18 History ibuprofen 400 mg tablet 400 mg PO Q4HP PRN 08/23/18 09/09/18 History megestrol 400 mg/10 mL (40 mg/mL) 100 mg PO QID 08/23/18 09/09/18 History oral suspension polyethylene glycol 3350 17 17 gm PO DAILY g 08/23/18 09/09/18 History gram/dose oral powder Albuterol Sulfate [Albuterol HFA 2 puffs IH Q4HP PRN 09/09/18 09/09/18 History Inhaler] Doxepin HCl [Sinequin 50mg capsule] 50 mg PO HS 09/09/18 09/09/18 History Fluticasone/Vilanterol [Breo 1 puff IH DAILY 09/09/18 09/09/18 History Ellipta 100-25 Mcg INH] Letrozole [Femara] 2.5 mg PO DAILY 09/09/18 09/09/18 History Mirtazapine 45 mg PO DAILY 09/09/18 09/09/18 History Quetiapine Fumarate 200 mg PO DAILY 09/09/18 09/09/18 History Quetiapine Fumarate 400 mg PO HS 09/09/18 09/09/18 History Trazodone HCl 200 mg PO HS 09/09/18 09/09/18 History Allergies Allergy/AdvReac Type Severity Reaction Status Date / Time No Known Allergies Allergy Verified 08/23/18 10:22 Review of Systems - *Cardiovascular Reports shortness of breath, Denies chest pain - *Respiratory Reports shortness of breath - *Gastrointestinal Denies abdominal pain, Denies loose stools, Denies black, tarry stools - *Genitourinary Denies blood in urine - *Musculoskeletal Denies joint pain - *Neurologic Reports weakness, Denies seizure-like activity Exam Vital signs and Labs for Last 24 Hours: Temp Pulse Resp BP Pulse Ox 98.4 F 96 H 18 135/87 95 09/10/18 04:00 09/10/18 04:00 09/10/18 04:00 09/10/18 04:00 09/10/18 04:00 Laboratory Results - last 24 hr 09/09/18 12:23: WBC 4.9, RBC 4.91, Hgb 13.9, Hct 45.2, MCV 92.1, MCH 28.3, MCHC 30.7 L, RDW 16.5, Plt Count 308, MPV 6.7 L, Neut % (Auto) 66.2, Lymph % (Auto) 25.3, Murray % (Auto) 7.8, Eos % (Auto) 0.3, Baso % (Auto) 0.4, Neut # (Auto) 3.2, Lymph # (Auto) 1.2, Murray # (Auto) 0.4, Eos # (Auto) 0.0, Baso # (Auto) 0.0 09/09/18 12:23: Sodium 141, Potassium 3.9, Chloride 105, Carbon Dioxide 26, Anion Gap 13.9, BUN 11, Creatinine 1.02, Estimated Creat Clear 43, Estimated GFR 53 L, Est GFR ( Amer) 64, Glucose 96, Calcium 8.9 09/09/18 12:23: Lactate 1.1 09/10/18 06:10: WBC 9.8 D, RBC 4.31, Hgb 12.2 D, Hct 39.6, MCV 91.8, MCH 28.2, MCHC 30.7 L, RDW 16.5, Plt Count 312, MPV 6.8 L, Neut % (Auto) 80.3 H, Lymph % (Auto) 12.5, Murray % (Auto) 6.9, Eos % (Auto) 0.0 L, Baso % (Auto) 0.2, Neut # (Auto) 7.9 H, Lymph # (Auto) 1.2, Murray # (Auto) 0.7, Eos # (Auto) 0.0, Baso # (Auto) 0.0 09/10/18 06:10: Sodium 141, Potassium 4.0, Chloride 107, Carbon Dioxide 23, Anion Gap 15.0, BUN 14 D, Creatinine 1.06 H, Estimated Creat Clear 34, Estimated GFR 51 L, Est GFR ( Amer) 61, Glucose 90, Calcium 8.6, Magnesium 2.0 09/10/18 06:10: Troponin I < 0.02 09/10/18 06:10: Total Valproic Acid 46.6 L I & O for Last 24 hours: Intake & Output 09/07/18 09/08/18 09/09/18 09/10/18 11:59 11:59 11:59 11:59 Intake Total 720 / 720 Balance 720 / 720 Weight 125 lb 103 lb 0.964 oz - *Routine Neck Exam Present: supple. Absent: JVD, carotid bruit - *Routine Respiratory Exam Present: decreased breath sounds, CTA bilaterally. Absent: accessory muscle use, rales, rhonchi, wheezes - *Routine Cardiovascular Exam Present: RRR. Absent: murmur, gallop, rubs - *Routine Abdominal Exam Present: soft. Absent: tenderness, distended, guarding - *Routine Extremities Exam Absent: edema, calf tenderness - *Routine Neurological Exam Present: alert, oriented X3, moving all extremities Assessment and Plan (1) CAP (community acquired pneumonia) Current visit: Yes Status: Acute Category: Medical Code(s): J18.9 - Pneumonia, unspecified organism (2) Tobacco use Current visit: Yes Status: Acute Category: Medical Code(s): Z72.0 - Tobacco use (3) Low body mass index (BMI) Current visit: Yes Status: Acute Category: Medical (4) Breast cancer Current visit: Yes Status: Acute Category: Medical Code(s): C50.919 - Malignant neoplasm of unspecified site of unspecified female breast - Assessment and plan all Dx Assessment and Plan for all problems:: Echocardiogram has been ordered with results pending at this time. Further recommendations to follow, but anticipate if echocardiogram is normal, then the patient would be an acceptable risk to proceed with left mastectomy next week.
--- NOTE | 2018-09-10 10:15 | Cardiology Report ---
PROCEDURE: 2-D M-mode and color Doppler study INDICATIONS FOR THE TEST: Chest pain COPD Heart Murmur+ Tobacco Smoking+ Palpitations Fatigue Syncope Edema Hypertension + Diabetes Mellitus Rheumatic Fever SOB+PEARSON Obesity Hyperlipidemia Family History HD Additional History STENTS, BREAST CA, SCHIZOPHRENIA PATIENT INFORMATION HEIGHT: 65 WEIGHT:103 GENDER: Female B/P:150/83 2-D/M-MODE INTERPRETATION: 2-D MEASUREMENTS OBSERVED VALUES IN CMS Right Ventricular Dimension (RVDd) 1.8 Interventricular Septum (Thickness)(IVsd) 1.6 Left Ventricular Internal Dimensions(LVIDd) 4.5 Left Ventricular Posterior Wall (Thickness)(LVPWd) 0.6 Aortic Root 3.2 Aortic Cusp Separation 2.0 Left Atrial Dimensions (LAD) 3.2 2D 1. Left atrium is mildly enlarged, left ventricle is normal size, mild concentric left ventricular hypertrophy, visually estimated ejection fraction of 55-60% with no regional wall motion abnormality. 2. The right atrium and right ventricle are mildly enlarged with normal contractility. 3. The aortic valve is minimally thickened and fibrosed. 4. The mitral and tricuspid valve leaflets are minimally thickened. 5. The pulmonic valve is poorly visualized. 6. No significant pericardial effusion noted. DOPPLER INTERROGATION: Doppler interrogation of the aortic, mitral and tricuspid valvular presence of mild mitral and moderate tricuspid regurgitation, calculated right ventricular systolic pressure is approximately 60 mmHg consistent with moderate pulmonary hypertension, grade 1 diastolic dysfunction seen with tissue Doppler evidence of raised left atrial pressure. CONCLUSION: 1. Biatrial enlargement, normal left ventricular size, mild concentric left ventricular hypertrophy, visually estimated ejection fraction 55-60% with no regional wall motion abnormality, grade 1 diastolic dysfunction seen with tissue Doppler evidence of raised left atrial pressure. 2. Mildly enlarged right ventricle with normal contractility. 3. Mild mitral and moderate tricuspid regurgitation, calculated right ventricular systolic pressure is 60 mmHg consistent with moderate pulmonary hypertension. 4. No significant pericardial effusion noted.
--- NOTE | 2018-09-10 13:27 | Discharge Summary ---
General - General Admission date:: 09/09/18 Discharge date: 09/10/18 HPI HPI: pt with sob and cough and weakness at residential and dec po intake - she is tob user and has known breast cancer c/o SOA, cough and weakness that started today. Hospital Course Hospital Course: Pneumonia-IV antibiotics and IV fluids Coughing while eating and pneumonia-speech eval see speech recommendations Cardiology consult-see note We will discharge to [facility] today with plans for mastectomy on Thursday prior to Allran and after cleared for surgery with cardiology. Will see patient Thursday at [facility]. We will continue Zithromax and Omnicef as an outpatient. Objective Vital signs: Temp Pulse Resp BP Pulse Ox 98.0 F 90 18 149/68 H 98 09/10/18 12:00 09/10/18 12:00 09/10/18 12:00 09/10/18 12:00 09/10/18 12:00 no acute distress - *Routine HEENT Exam Head: Present: normocephalic Eye: Present: PERRL ENT: Present: mucous membranes moist - *Routine Neck Exam Present: full ROM - *Routine Respiratory Exam Present: rhonchi, wheezes - *Routine Cardiovascular Exam Present: RRR - *Routine Abdominal Exam Present: soft, normoactive bowel sounds - *Routine Extremities Exam Present: full ROM - *Routine Skin Exam Present: intact - *Routine Neurological Exam Present: alert, oriented X3 - Routine Psychiatric Exam Present: normal affect Results Labs on day of discharge: Labs from last 24 hours 09/10/18 09/10/18 09/10/18 06:10 06:10 06:10 WBC RBC Hgb Hct MCV MCH MCHC RDW Plt Count MPV Neut % (Auto) Lymph % (Auto) Bertie % (Auto) Eos % (Auto) Baso % (Auto) Neut # (Auto) Lymph # (Auto) Bertie # (Auto) Eos # (Auto) Baso # (Auto) Sodium 141 Potassium 4.0 Chloride 107 Carbon Dioxide 23 Anion Gap 15.0 BUN 14 D Creatinine 1.06 H Estimated Creat Clear 34 Estimated GFR 51 L Est GFR ( Amer) 61 Glucose 90 Lactate Calcium 8.6 Magnesium 2.0 Troponin I < 0.02 Total Valproic Acid 46.6 L 09/10/18 09/09/18 06:10 12:23 WBC 9.8 D RBC 4.31 Hgb 12.2 D Hct 39.6 MCV 91.8 MCH 28.2 MCHC 30.7 L RDW 16.5 Plt Count 312 MPV 6.8 L Neut % (Auto) 80.3 H Lymph % (Auto) 12.5 Bertie % (Auto) 6.9 Eos % (Auto) 0.0 L Baso % (Auto) 0.2 Neut # (Auto) 7.9 H Lymph # (Auto) 1.2 Bertie # (Auto) 0.7 Eos # (Auto) 0.0 Baso # (Auto) 0.0 Sodium Potassium Chloride Carbon Dioxide Anion Gap BUN Creatinine Estimated Creat Clear Estimated GFR Est GFR ( Amer) Glucose Lactate 1.1 Calcium Magnesium Troponin I Total Valproic Acid - Additional Comments rounded with demar all orders per demar DS: Diagnosis - Discharge Diagnosis (1) CAP (community acquired pneumonia) Status: Acute (2) Tobacco use Status: Acute (3) Low body mass index (BMI) Status: Acute (4) Breast cancer Status: Acute Discharge Plan - Patient Discharge Instructions ACTIVITY: Continue current activity DIET: continue same diet - Follow up Plan Follow up with: Sunny Hodge APRN [Advanced Practice Nurse] - 09/14/18 Disposition: Xfer SNF Home Medications: Home Medications Medication Instructions Recorded Confirmed Type Acetaminophen [Acetaminophen Extra 500 mg PO Q4HP PRN 04/09/18 09/09/18 History Strength] Amlodipine Besylate [Norvasc 10mg 10 mg PO DAILY 04/09/18 09/09/18 History tablet] Cilostazol [Pletal 100mg tablet] 100 mg PO BID 04/09/18 09/09/18 History Levalbuterol HCl [Levalbuterol 1.25 mg IH TIDP PRN 04/09/18 09/09/18 History Concentrate] OLANZapine [Olanzapine] 20 mg PO HS 04/09/18 09/10/18 History Valproic Acid (As Sodium Salt) 375 mg PO TID 04/09/18 09/09/18 History [Valproic Acid] docusate sodium 250 mg capsule 250 mg PO DAILY 08/23/18 09/09/18 History ibuprofen 400 mg tablet 400 mg PO Q4HP PRN 08/23/18 09/09/18 History megestrol 400 mg/10 mL (40 mg/mL) 100 mg PO QID 08/23/18 09/09/18 History oral suspension polyethylene glycol 3350 17 17 gm PO DAILY g 08/23/18 09/09/18 History gram/dose oral powder Albuterol Sulfate [Albuterol HFA 2 puffs IH Q4HP PRN 09/09/18 09/09/18 History Inhaler] Doxepin HCl [Sinequin 50mg capsule] 50 mg PO HS 09/09/18 09/09/18 History Fluticasone/Vilanterol [Breo 1 puff IH DAILY 09/09/18 09/09/18 History Ellipta 100-25 Mcg INH] Letrozole [Femara] 2.5 mg PO DAILY 09/09/18 09/09/18 History Mirtazapine 45 mg PO HS 09/09/18 09/10/18 History Quetiapine Fumarate 200 mg PO DAILY 09/09/18 09/09/18 History Quetiapine Fumarate 400 mg PO HS 09/09/18 09/09/18 History Trazodone HCl 200 mg PO HS 09/09/18 09/09/18 History Prescriptions/Medication Reconciliation: New Azithromycin [Zithromax 250mg tab] 250 mg PO DIRECTED #6 tab Cefdinir [Omnicef 300mg Capsule] 300 mg PO BID 7 Days #14 cap Continue docusate sodium 250 mg capsule 250 mg PO DAILY polyethylene glycol 3350 17 gram/dose oral powder 17 gm PO DAILY g megestrol 400 mg/10 mL (40 mg/mL) oral suspension 100 mg PO QID ibuprofen 400 mg tablet 400 mg PO Q4HP PRN PRN Reason: pain Cilostazol [Pletal 100mg tablet] 100 mg PO BID OLANZapine [Olanzapine] 20 mg PO HS Amlodipine Besylate [Norvasc 10mg tablet] 10 mg PO DAILY Acetaminophen [Acetaminophen Extra Strength] 500 mg PO Q4HP PRN PRN Reason: pain Valproic Acid (As Sodium Salt) [Valproic Acid] 375 mg PO TID Doxepin HCl [Sinequin 50mg capsule] 50 mg PO HS Trazodone HCl 200 mg PO HS Letrozole [Femara] 2.5 mg PO DAILY Quetiapine Fumarate 200 mg PO DAILY Quetiapine Fumarate 400 mg PO HS Fluticasone/Vilanterol [Breo Ellipta 100-25 Mcg INH] 1 puff IH DAILY Levalbuterol HCl [Levalbuterol Concentrate] 1.25 mg IH TIDP PRN PRN Reason: Shortness Of Breath Albuterol Sulfate [Albuterol HFA Inhaler] 2 puffs IH Q4HP PRN PRN Reason: Shortness Of Breath Or Wheezing Mirtazapine 45 mg PO HS
== END 2018-09-10 15:15 ==
LOC: 2ND 11:37 → ER 11:37 → 2ND 16:40
PROVIDERS: ADMIT Emergency Medicine; ATTEND Emergency Medicine

== ENCOUNTER → 2018-10-05 10:09 | Outpatient (CLI) | payer MEDICARE, MEDICAID, SELFPAY ==
--- NOTE | 2018-10-05 10:21 | XR_ITS ---
XR chest 2V HISTORY: ITS.REASON: SOA ORDERING PHYSICIAN: Edilberto Stevenson M.D PATIENT AGE: 73 years COMPARISON: 09/09/2018 FINDINGS: Unremarkable cardiovascular structures. There are chronic changes in the lower lobes with slight increased density in the right lung base suggesting superimposed infiltrate. Nodular soft tissue density once again noted in the right supraclavicular region. IMPRESSION: Chronic changes with right lower lobe infiltrate
== END ==
PROVIDERS: PCP Emergency Medicine; Visit Provider Surgery
DX: Z01.818 Encounter for other preprocedural examination (principal)
CPT/HCPCS: 71046

== ENCOUNTER 2018-11-30 08:28 | Observation (INO) ==
--- NOTE | 2018-11-30 09:48 | Progress Note ---
[facility] Anesthesia Checklist - Patient Identification Patient Identification: Arm Band, Verbal (Name & ) - Structural Data Admitted From: Long-term Nursing Facility Planned Operative Procedure/s: left mastectomy Consent for Planned Operative Procedure(s) Verified: Yes Verified Documents: History and Physical - NPO Status Verified Time NPO: 00:00 - Additional verifications Patient : No Anesthesia Reactions: No Hx Blood Transfusions: No Blood Transfusion Reaction: No Cephalosporin Allergy: No Previous Colonoscopy: No - Cardiovascular Assessment Heart Sounds: S1 & S2 Pulse Strength: Baseline Pulse Rhythm: Regular Peripheral Edema: No - Airway Assessment C-Spine Mobility Assessed: Yes TMJ Mobility Assessed: Yes Dentition: Edentulous - Neurological Assessment Level of Consciousness: Awake, Alert, Appropriate Hx Seizures: No Numbness or tingling in extremities: No - Anesthesia Plan Anesthesia Risk discussed: Yes Anesthesia Plan: Verified ASA Class: III Anesthesia Type: General [facility] History I have reviewed the patient's past medical history: Yes Medical History: Reports:: Cancer, Hypertension Denies:: Diabetes Mellitus Type 1, Diabetes Mellitus Type 2, Internal Pacemaker, Seizures Have you ever received a pneumonia vaccine?: No Have you received a flu vaccine this season?: Yes Other Medical History: Reports: Other. Denies: Blood Transfusion Reaction Other Surgeries: Yes: No Previous Surgery. No: Pacemaker Amputation: No Fractures: No - *Social History Educational Level: Attended High School Smoking Status: Current every day smoker Tobacco Type: cigarettes # Packs/Day (cigarettes): 1 Alcohol Intake: never Alcohol Intake Frequency:: holidays/special occasions only Substance Use Type: denies use Occupational Status: disabled, unemployed Housing: [facility] Household Members: other Travel in the last 8 weeks: None - Psychiatric History Expresses thoughts of harming self/others: None Suicide Plan Description: No Plan Pschychiatric History:: Reports:: Schizophrenia *Family Hx:: Unable to obtain
[2018-11-30 09:49] LABS: Basophils % 1.1 % (0.1-2.0); Eosinophils % 0.2 % (0.1-12.0); Hematocrit 40.9 % (37.0-47.0); Hemoglobin 12.1 g/dL (12.2-16.2); Lymphocytes # 1.6 K/mm3 (0.7-4.5); Lymphocytes % 40.9 % (10-50); Mean Corpuscular HGB Conc 29.7 g/dL (31.8-35.4); Mean Corpuscular Hemoglobin 28.2 pg (27.0-31.2); Mean Platelet Volume 6.9 fl (7.4-10.4); Monocytes # 0.3 K/mm3 (0.1-1.0); Monocytes % 7.1 % (1.7-9.3); Neutrophils % 50.7 % (37.0-80.0); Platelet Count 307 K/mm3 (142-424)
[2018-11-30 10:05] LABS: Anion Gap 9.5 mEq/L (5-15); Potassium 4.5 mmoL/L (3.5-5.1)
--- NOTE | 2018-11-30 14:28 | Operative Note ---
Date of procedure: 11/30/18 Pre-op Diagnosis:: Left breast cancer Post-op Diagnosis:: Same Procedure performed:: Left total mastectomy with lymph node biopsies Surgeon:: Edilberto Stevenson MD Car Rental Agent(s):: None Anesthesia: MACK Estimated blood loss (mL): 30 Clinical Note:: Patient is a 73-year-old female with a history of schizophrenia. She was diag nosed with breast cancer several years ago and had refused to treatment other than anti-estrogen therapy for some time. She had clinical and radiographic resolution initially then developed recurrence. She has seen oncology and discussion was made for treatment. Patient opted for surgery at this time. She was sent for surgical consultation and plan was made for total mastectomy with sentinel lymph node biopsies with possible axillary dissection as a modified radical mastectomy. Operative findings:: She had a palpable tumor in the inferior left breast which was relatively superficial to the skin. Axillary sentinel lymph nodes were negative. Operative note:: Consent was obtained and patient was taken to the operating room. Please note that he had undergone injection of radioactive tracer for sentinel lymph node mapping prior to being taken to the operating room. She was given preoperative intravenous antibiotics. General anesthesia was induced. Left chest, breast, and left upper extremity were prepped and draped in the standard surgical fashion. The lesion was palpable in the inferior portion of the left breast. Skin was marked with skin marker for planned elliptical mastectomy incision. Incision was made and dissection was carried down through the dermis. The axillary portion of the incision was then probed with the gamma neoprobe for sentinel lymph node biopsies to be obtained. Dissection was carried down through the subcutaneous tissues into the axillary fascia. With some difficulty, due to the depth of the sentinel lymph nodes, sentinel lymph node was dissected free using blunt dissection with limited use of Metzenbaum dissection. Lymphatic vessels were clipped with small hemoclips. [place] lymph node #1 was sent off as specimen B there was some additional small noted upon probing the axilla and additional sentinel lymph node was identified and dissected free in a similar fashion. There was an adjacent lymph node without uptake of tracer this was ultimately sent as axillary lymph node. The 2 sentinel lymph nodes returned negative by touch prep. Please note that both the long thoracic and thoracodorsal nerves were protected and preserved during the axillary sentinel lymph node retrieval. Total mastectomy was then performed by creating superior skin flap using electrocautery dissecting the breast tissue free from the overlying skin and subdermal tissues down to the pectoralis muscle inferior to the clavicle. This was performed in a similar fashion inferiorly however the tumor was rather superficial in the inferior flap and dissection was carried down to the dermis. Due to the close proximity of the tumor to the inferior skin flap plan was made for excision of this overlying skin at the completion of the mastectomy. Once superior and inferior skin flaps were raised the pectoralis fascia was incised in the pectoralis fascia dissected free from the pectoralis muscle in the subpectoral plane removing the breast tissue in its entirety. This was sent off as a specimen. Several branching vessels were ligated with Vicryl ties. At this time the skin overlying the tumor was excised. It was sent as separate specimen. Wound was thoroughly irrigated. #10 Fredo-Mena drain was placed laterally into the axilla and an additional drain was placed medially into the mastectomy bed. There was good hemostasis. Dermal tissues were reapproximated with multiple interrupted 2-0 Vicryl sutures. Tissue was somewhat tight at the portion where the additional skin overlying t he tumor was excised but this was able to be closed effectively. The skin was then closed with skin storm. 3-0 nylon horizontal mattress sutures were placed for both drains. Clean dry sterile dressing was applied. Condition: stable Disposition: PACU Specimens:: Left breast tissue [place] lymph nodes Axillary lymph node Skin overlying tumor Complications:: None immediately apparent
--- NOTE | 2018-11-30 14:30 | Progress Note ---
[facility] Anesthesia Record Part I Intake, IV Amount: 1,000 Estimated blood loss (mL): 10 Urine output (mL): 0 Blood Products used (#): none Blood Pressure: 134/60 SaO2: 96 Pulse Rate: 71 Respiratory Rate: 18 Temperature: 97.5 F Patient is:: Drowsy, Nasal O2, Stable Stable to PACU at:: 14:29
--- NOTE | 2018-11-30 14:31 | Progress Note ---
[facility] Anesthesia Record Part II Discharge Time: 14:59 Destination: Medical Surgical Department PACU nurse assessment reviewed?: Yes Patient Condition:: Good Anesthesia Complications:: None Swallowing reflex intact?: Yes Cyanosis?: No
--- NOTE | 2018-11-30 14:31 | Operative Note ---
Date of procedure: 11/30/18 Pre-op Diagnosis:: Right supraclavicular sebaceous cyst Post-op Diagnosis:: Same Procedure performed:: Excision of right supraclavicular sebaceous cysts (excisional length 4.0 cm) with simple closure Surgeon:: Edilberto Stevenson MD Anesthesia: GETA Estimated blood loss (mL): 5 Clinical Note:: Patient is a 73-year-old female with left-sided breast cancer. Plan was made for left total mastectomy and sentinel lymph node biopsies. She had a rather large supraclavicular sebaceous cyst on the right side and plan was made for excision of this on the same anesthetic. Operative findings:: Consistent with large noninfected inclusion cyst Operative note:: Patient was maintained in the operating room under anesthesia. The area was prepped and draped in the sterile surgical fashion. Lesion was marked with a skin marker for planned elliptical incision. Skin incision was made. Careful dissection was carried down to the subdermal plane where the cyst capsule was encountered. The cyst with the overlying skin ellipse containing the skin punctum was dissected free from the underlying tissues. It was sent off as a specimen. Hemostasis was achieved with limited use of electrocautery for skin was closed with interrupted 4-0 nylon sutures. Clean dry sterile dressing was applied. Condition: stable Disposition: PACU Specimens:: Right supraclavicular sebaceous cyst Complications:: None immediately apparent
--- NOTE | 2018-11-30 21:46 | Consult Report ---
*Admission Date: 11/30/18 *Chief complaint: breast cancer *History of present illness: [facility] [place] - pt has known breast cancer and in for surg removal- Patient is a 73-year-old female with a history of schizophrenia. She was diagnosed with breast cancer several years ago and had refused to treatment other than anti-estrogen therapy for some time. She had clinical and radiographic resolution initially then developed recurrence. She has seen oncology and discussion was made for treatment. Patient opted for surgery at this time. She was sent for surgical consultation and plan was made for total mastectomy with sentinel lymph node biopsies with possible axillary dissection as a modified radical mastectomy. [facility] History I have reviewed the patient's past medical history: Yes Medical History: Reports:: Cancer, Hypertension Denies:: Diabetes Mellitus Type 1, Diabetes Mellitus Type 2, Internal Pacemaker, Seizures Have you ever received a pneumonia vaccine?: Yes (09/2018) Have you received a flu vaccine this season?: Yes (09/2018) Other Medical History: Reports: Other. Denies: Blood Transfusion Reaction Other Surgeries: Yes: No Previous Surgery. No: Pacemaker Amputation: No Fractures: No - *Social History Educational Level: Attended High School Smoking Status: Former smoker Tobacco Type: cigarettes # Packs/Day (cigarettes): 1 Alcohol Intake: former Alcohol Intake Frequency:: holidays/special occasions only Substance Use Type: denies use Occupational Status: disabled, unemployed Housing: intermediate Household Members: other Travel in the last 8 weeks: None - Psychiatric History Expresses thoughts of harming self/others: None Suicide Plan Description: No Plan Pschychiatric History:: Reports:: Schizophrenia *Family Hx:: Unable to obtain Review of Systems - Review of Systems Review of systems:: pertinent systems reviewed and negative unless documented below - Constitutional Denies headache(s) - Eyes Denies change in vision - ENT Denies sore throat - *Cardiovascular Denies chest pain at rest - *Respiratory Denies cough - *Gastrointestinal Denies abdominal pain - *Genitourinary Denies urinary urgency - *Musculoskeletal Denies joint pain - Integumentary/Breasts Reports other (breast mass lt ) - *Neurologic Denies seizure-like activity - Psychiatric Reports anxiety Meds Home Medications Medication Instructions Recorded Confirmed Type Acetaminophen [Acetaminophen Extra 500 mg PO Q4HP PRN 04/09/18 11/30/18 History Strength] Amlodipine Besylate [Norvasc 10mg 10 mg PO DAILY 04/09/18 11/30/18 History tablet] Cilostazol [Pletal 100mg tablet] 100 mg PO BID 04/09/18 11/30/18 History Levalbuterol HCl [Levalbuterol 1.25 mg IH TIDP PRN 04/09/18 11/30/18 History Concentrate] OLANZapine [Olanzapine] 20 mg PO HS 04/09/18 11/30/18 History ibuprofen 400 mg tablet 400 mg PO Q4HP PRN 08/23/18 11/30/18 History polyethylene glycol 3350 17 17 gm PO DAILY g 08/23/18 11/30/18 History gram/dose oral powder Albuterol Sulfate [Albuterol HFA 2 puffs IH Q4HP PRN 09/09/18 11/30/18 History Inhaler] Fluticasone/Vilanterol [Breo 1 puff IH DAILY 09/09/18 11/30/18 History Ellipta 100-25 Mcg INH] Letrozole [Femara] 2.5 mg PO DAILY 09/09/18 11/30/18 History Mirtazapine 45 mg PO HS 09/09/18 11/30/18 History Quetiapine Fumarate 200 mg PO DAILY 09/09/18 11/30/18 History Quetiapine Fumarate 300 mg PO HS 09/09/18 11/30/18 History Trazodone HCl 100 mg PO HS 09/09/18 11/30/18 History lactulose 10 gram/15 mL oral 30 ml PO DAILY 11/19/18 12/01/18 History solution Valproic Acid (As Sodium Salt) 7.5 ml PO TID 12/01/18 12/01/18 History [Valproic Acid] Allergies Allergy/AdvReac Type Severity Reaction Status Date / Time No Known Allergies Allergy Verified 11/30/18 09:26 Exam Vital signs and Labs for Last 24 Hours: Temp Pulse Resp BP Pulse Ox 97.6 F 85 14 139/75 97 11/30/18 18:20 11/30/18 18:20 11/30/18 18:20 11/30/18 18:20 11/30/18 18:20 Laboratory Results - last 24 hr 11/30/18 09:19: WBC 4.0 L, RBC 4.30, Hgb 12.1 L, Hct 40.9, MCV 95.0, MCH 28.2, MCHC 29.7 L, RDW 16.0, Plt Count 307, MPV 6.9 L, Neut % (Auto) 50.7, Lymph % (Auto) 40.9, [place] % (Auto) 7.1, Eos % (Auto) 0.2, Baso % (Auto) 1.1, Neut # (Auto) 2.0, Lymph # (Auto) 1.6, [place] # (Auto) 0.3, Eos # (Auto) 0.0, Baso # (Auto) 0.0 11/30/18 09:19: Sodium 139, Potassium 4.5, Chloride 104, Carbon Dioxide 30, Anion Gap 9.5, BUN 12, Creatinine 0.96, Estimated Creat Clear 37, Estimated GFR 57 L, Est GFR ( Amer) 69, Glucose 86, Calcium 9.0 I & O for Last 24 hours: Intake & Output 11/28/18 11/29/18 11/30/18 12/01/18 11:59 11:59 11:59 11:59 Intake Total 1245 / 1245 Output Total 70 / 70 Balance 1175 / 1175 Weight 104 lb 6 oz 109 lb 8 oz - Constitutional no acute distress, cachectic - *Routine HEENT Exam Head: Present: normocephalic Eye: Present: EOMI, PERRL ENT: Present: mucous membranes dry - *Routine Neck Exam Present: supple - *Routine Respiratory Exam Present: CTA bilaterally - *Routine Cardiovascular Exam Present: RRR, murmur - *Routine Abdominal Exam Present: soft - *Routine Extremities Exam Present: full ROM - *Routine Skin Exam Present: intact - *Routine Neurological Exam Present: alert, CN II-XII intact - Routine Psychiatric Exam Present: unable to assess Internal Medicine - CN: Reslt - Labs CBC & Chem 7: 11/30/18 09:19 11/30/18 09:19 Labs: Short CBC 11/30/18 Range/Units 09:19 WBC 4.0 L (4.8-10.8) K/mm3 Hgb 12.1 L (12.2-16.2) g/dL Hct 40.9 (37.0-47.0) % Plt Count 307 (142-424) K/mm3 [facility] 11/30/18 09:19 Sodium 139 Potassium 4.5 Chloride 104 Carbon Dioxide 30 BUN 12 Creatinine 0.96 Glucose 86 Calcium 9.0 Assessment and Plan (1) Tobacco use Current visit: Yes Status: Acute Category: Medical Code(s): Z72.0 - Tobacco use (2) Breast cancer Current visit: No Status: Acute Qualifiers: Breast location: nipple Estrogen receptor status: unspecified Patient sex: female Laterality: left Qualified Code(s): C50.012 - Malignant neoplasm of nipple and areola, left female breast Category: Medical Code(s): C50.919 - Malignant neoplasm of unspecified site of unspecified female breast (3) Low body mass index (BMI) Current visit: No Status: Acute Category: Medical
--- NOTE | 2018-12-01 07:37 | Pharmacy Consult Notes ---
[facility] Pharmacy VTE Monitoring - Patient Demographics Admission date: 11/30/18 Report Date: 12/01/18 Time: 07:37 Allergies/Adverse Reactions: Patient Allergies No Known Allergies Allergy (Verified 11/30/18 09:26) Height: 1.68 m Weight: 47.797 kg - VTE Risk Labs: VTE Related Lab Results Hgb 12.1 g/dL (12.2-16.2) L 11/30/18 09:19 Hct 40.9 % (37.0-47.0) 11/30/18 09:19 Plt Count 307 K/mm3 (142-424) 11/30/18 09:19 BUN 12 mg/dL (7-18) 11/30/18 09:19 Creatinine 0.96 mg/dL (0.55-1.02) 11/30/18 09:19 Estimated Creat Clear 37 mL/min (50-200) 11/30/18 09:19 Was VTE Risk Assessment Performed: Yes VTE Score: 4 VTE Risk Level: Low Risk - Prophylaxis VTE Prophylaxis Ordered?: Yes Types of VTE Prophylaxis: TEDS Knee High Location of Applied Device: Bilateral Lower Extremeties - VTE Diagnosis Confirmed Treatment or plan recommended: Continue Current Treatment
--- NOTE | 2018-12-01 08:41 | Progress Note ---
Subjective Patient reports: no new complaints Narrative: Patient denies any abdominal pain. Exam Vital signs and Labs for Last 24 Hours: Temp Pulse Resp BP Pulse Ox 99.5 F 85 17 130/80 95 12/01/18 07:43 12/01/18 07:43 12/01/18 07:43 12/01/18 07:43 12/01/18 07:43 Laboratory Results - last 24 hr 11/30/18 09:19: WBC 4.0 L, RBC 4.30, Hgb 12.1 L, Hct 40.9, MCV 95.0, MCH 28.2, MCHC 29.7 L, RDW 16.0, Plt Count 307, MPV 6.9 L, Neut % (Auto) 50.7, Lymph % (Auto) 40.9, [place] % (Auto) 7.1, Eos % (Auto) 0.2, Baso % (Auto) 1.1, Neut # (Auto) 2.0, Lymph # (Auto) 1.6, [place] # (Auto) 0.3, Eos # (Auto) 0.0, Baso # (Auto) 0.0 11/30/18 09:19: Sodium 139, Potassium 4.5, Chloride 104, Carbon Dioxide 30, Anion Gap 9.5, BUN 12, Creatinine 0.96, Estimated Creat Clear 37, Estimated GFR 57 L, Est GFR ( Amer) 69, Glucose 86, Calcium 9.0 I & O for Last 24 hours: Intake & Output 11/28/18 11/29/18 11/30/18 12/01/18 11:59 11:59 11:59 11:59 Intake Total 2789 / 2789 Output Total 140 / 140 Balance 2649 / 2649 Weight 104 lb 6 oz 105 lb 6 oz - Routine Chest/Breast/Axilla Exam Comments: Her incision is clean. Central portion of the incision is minor bruising but no evidence of any ischemia. MARIAON drain output serosanguineous. Progress Note: A&P Assessment and Plan for All Diagnoses:: Probable discharge back to skilled nursing later today with close outpatient follow-up.
--- NOTE | 2018-12-01 10:03 | Discharge Summary ---
General - General Admission date:: 11/30/18 Discharge date: 12/01/18 HPI HPI: Patient is a 73-year-old black female. She has a reported several year history of diagnosed breast cancer which she initially refused any surgical treatment. She did apparently undergo and then had recurrence. Recently she has seen oncology and due to the "recurrence" it was recommended she undergo surgery. Patient was agreeable to this at this time. She did have a incidental large right supraclavicular sebaceous cyst and plan was made to excise this after her surgery as well. Hospital Course Hospital Course: Patient was taken to the operating room on 11/30/18 at which time she underwent left total mastectomy with sentinel lymph node biopsies. [place] lymph nodes were negative by touch prep and she therefore did not require full axillary dissection but she did require complete total left mastectomy. The tumor was palpable close to the subdermal tissues and the skin flap and the overlying skin was excised. This was able to be closed under some tension. She did have the right supraclavicular cyst removed as well. She was admitted postoperatively for wound and drain care and pain control. She had no pain overnight. Following morning her drain output was appropriate character and quantity. Dressing was removed in the incision was inspected. There is some minor bruising but no evidence [facility] with close outpatient follow-up. Objective Vital signs: Temp Pulse Resp BP Pulse Ox 99.5 F 85 17 130/80 95 12/01/18 07:43 12/01/18 07:43 12/01/18 07:43 12/01/18 07:43 12/01/18 07:43 - Routine Chest/Breast/Axilla Exam Comments: Mastectomy incision clean with only minimal bruising with no evidence of any necrosis - Detailed Eye Exam Eyelids: Left normal inspection Results Labs on day of discharge: Labs from last 24 hours 11/30/18 09:19 Sodium 139 Potassium 4.5 Chloride 104 Carbon Dioxide 30 Anion Gap 9.5 BUN 12 Creatinine 0.96 Estimated Creat Clear 37 Estimated GFR 57 L Est GFR ( Amer) 69 Glucose 86 Calcium 9.0 DS: Diagnosis - Discharge Diagnosis (1) Tobacco use Status: Acute (2) Breast cancer Status: Acute (3) Low body mass index (BMI) Status: Acute Discharge Plan - Patient Discharge Instructions ACTIVITY: Continue current activity DIET: advance to your usual diet Patient Instructions: Breast Cancer in Women, DI for Mastectomy, DI for Surgical Site Infection - Follow up Plan Follow up with: Edilberto Stevenson MD [Staff Physician] - 12/03/18 Disposition: Home, Self-[facility] Medications: Home Medications Medication Instructions Recorded Confirmed Type Acetaminophen [Acetaminophen Extra 500 mg PO Q4HP PRN 04/09/18 11/30/18 History Strength] Amlodipine Besylate [Norvasc 10mg 10 mg PO DAILY 04/09/18 11/30/18 History tablet] Cilostazol [Pletal 100mg tablet] 100 mg PO BID 04/09/18 11/30/18 History Levalbuterol HCl [Levalbuterol 1.25 mg IH TIDP PRN 04/09/18 11/30/18 History Concentrate] OLANZapine [Olanzapine] 20 mg PO HS 04/09/18 11/30/18 History ibuprofen 400 mg tablet 400 mg PO Q4HP PRN 08/23/18 11/30/18 History polyethylene glycol 3350 17 17 gm PO DAILY g 08/23/18 11/30/18 History gram/dose oral powder Albuterol Sulfate [Albuterol HFA 2 puffs IH Q4HP PRN 09/09/18 11/30/18 History Inhaler] Fluticasone/Vilanterol [Breo 1 puff IH DAILY 09/09/18 11/30/18 History Ellipta 100-25 Mcg INH] Letrozole [Femara] 2.5 mg PO DAILY 09/09/18 11/30/18 History Mirtazapine 45 mg PO HS 09/09/18 11/30/18 History Quetiapine Fumarate 200 mg PO DAILY 09/09/18 11/30/18 History Quetiapine Fumarate 300 mg PO HS 09/09/18 11/30/18 History Trazodone HCl 100 mg PO HS 09/09/18 11/30/18 History lactulose 10 gram/15 mL oral 30 ml PO DAILY 11/19/18 12/01/18 History solution Valproic Acid (As Sodium Salt) 7.5 ml PO TID 12/01/18 12/01/18 History [Valproic Acid] Prescriptions/Medication Reconciliation: Continue polyethylene glycol 3350 17 gram/dose oral powder 17 gm PO DAILY g lactulose 10 gram/15 mL oral solution 30 ml PO DAILY ibuprofen 400 mg tablet 400 mg PO Q4HP PRN PRN Reason: pain Cilostazol [Pletal 100mg tablet] 100 mg PO BID OLANZapine [Olanzapine] 20 mg PO HS Amlodipine Besylate [Norvasc 10mg tablet] 10 mg PO DAILY Acetaminophen [Acetaminophen Extra Strength] 500 mg PO Q4HP PRN PRN Reason: pain Trazodone HCl 100 mg PO HS Letrozole [Femara] 2.5 mg PO DAILY Quetiapine Fumarate 200 mg PO DAILY Quetiapine Fumarate 300 mg PO HS Fluticasone/Vilanterol [Breo Ellipta 100-25 Mcg INH] 1 puff IH DAILY Valproic Acid (As Sodium Salt) [Valproic Acid] 7.5 ml PO TID Levalbuterol HCl [Levalbuterol Concentrate] 1.25 mg IH TIDP PRN PRN Reason: Shortness Of Breath Albuterol Sulfate [Albuterol HFA Inhaler] 2 puffs IH Q4HP PRN PRN Reason: Shortness Of Breath Or Wheezing Mirtazapine 45 mg PO HS
== END 2018-12-01 11:24 | disposition home or self-care (01) ==
LOC: 2ND 08:28 → RAD 08:28 → 2ND 15:27
PROVIDERS: ADMIT Surgery; ATTEND Surgery
CPT/HCPCS: 80048; 85025; 96374; A9541; G0378; J2405

== ENCOUNTER → 2019-01-05 10:33 | Outpatient (CLI) | payer MEDICARE, MEDICAID, SELFPAY ==
--- NOTE | 2019-01-05 10:36 | CA_ITS ---
PROCEDURE: 2-D M-mode and color Doppler study INDICATIONS FOR THE TEST: Chest pain COPD Heart Murmur Tobacco Smoking Palpitations Fatigue Syncope Edema Hypertension+Diabetes Mellitus Rheumatic Fever SOB [place] Obesity Hyperlipidemia Family History HD Additional History PATIENT INFORMATION HEIGHT: 63 WEIGHT:116 GENDER: Female B/P:165/87 2-D/M-MODE INTERPRETATION: 2-D MEASUREMENTS OBSERVED VALUES IN CMS Right Ventricular Dimension (RVDd) 2.0 Interventricular Septum (Thickness)(IVsd) 0.8 Left Ventricular Internal Dimensions(LVIDd) 4.5 Left Ventricular Posterior Wall (Thickness)(LVPWd) 0.9 Aortic Root 3.4 Aortic Cusp Separation 1.8 Left Atrial Dimensions (LAD) 3.4 2D 1. Left atrium is qualitatively mildly enlarged, left ventricle is normal size, mild qualitative concentric left ventricular hypertrophy, visually estimated ejection fraction of 55-60% with no regional wall motion abnormality. 2. The right atrium and right ventricle are qualitatively mildly enlarged with normal contractility. 3. The aortic valve is thickened and calcified, valve leaflets continue to display mobility. 4. The mitral and tricuspid valve are grossly normal. 5. The pulmonic valve is poorly visualized. 6. No significant pericardial effusion noted. DOPPLER INTERROGATION: Doppler interrogation of the aortic, mitral and tricuspid valvular presence of mild mitral and tricuspid regurgitation, calculated right ventricular systolic pressure is 50 mmHg consistent with moderate pulmonary hypertension, grade 1 diastolic dysfunction seen without tissue Doppler evidence of raised left atrial pressure. CONCLUSION: 1. Mildly enlarged left atrium, normal left ventricular size, mild qualitative concentric left ventricular hypertrophy, visually estimated ejection fraction of 55-60% with no regional wall motion abnormality, grade 1 diastolic dysfunction seen without tissue Doppler evidence of raised left atrial pressure. 2. Mildly enlarged right ventricle with normal contractility. 3. Thickened and calcified aortic valve without aortic stenosis aortic insufficiency. 4. Mild mitral and tricuspid regurgitation, calculated right ventricular systolic pressure is 50 mmHg consistent with moderate pulmonary hypertension. 5. No significant pericardial effusion noted.
== END ==
PROVIDERS: PCP Emergency Medicine; Visit Provider Internal Medicine Medical Oncology
DX: Z85.118 Personal history of other malignant neoplasm of bronchus and lung (principal); C50.919 Malignant neoplasm of unspecified site of unspecified female breast; Z01.810 Encounter for preprocedural cardiovascular examination
CPT/HCPCS: 93306

== ENCOUNTER 2019-01-06 08:25 | Outpatient (CLI) | payer MEDICARE, MEDICAID, SELFPAY ==
[2019-01-06] VITALS (17 sets, daily range): BP systolic 107–156; BP diastolic 52–82; PULSE 84–93; RESP 16–18; TEMP 36.6; O2SAT 88–92; BMI 20.5
[2019-01-06 09:05] LABS: Basophils # 0.1 K/mm3 (0-0.2); Basophils % 2.2 % (0.1-2.0); Eosinophils % 0.2 % (0.1-12.0); Hematocrit 44.8 % (37.0-47.0); Hemoglobin 13.7 g/dL (12.2-16.2); Lymphocytes # 1.7 K/mm3 (0.7-4.5); Lymphocytes % 44.4 % (10-50); Mean Corpuscular HGB Conc 30.7 g/dL (31.8-35.4); Mean Corpuscular Volume 91.4 fl (81-99); Mean Platelet Volume 7.1 fl (7.4-10.4); Monocytes # 0.2 K/mm3 (0.1-1.0); Monocytes % 6.2 % (1.7-9.3); Neutrophils # 1.8 K/mm3 (1.8-7.8); Platelet Count 267 K/mm3 (142-424); Red Blood Count 4.91 M/mm3 (4.20-5.40); Red Cell Distribution Width 15.9 % (11.5-17.5); White Blood Count 3.7 K/mm3 (4.8-10.8)
--- NOTE | 2019-01-06 10:51 | PC.NURSE ---
Patient's MAR not brought to [facility] but physician orders were provided. Checked medications but unsure of when last given. Waiting database consultant back from her nurse at [place] to find out when last taken.
== END 2019-01-06 15:15 | disposition home or self-care (01) ==
LOC: INF 08:30
PROVIDERS: Visit Provider Internal Medicine Medical Oncology
DX: Z51.11 Encounter for antineoplastic chemotherapy (principal); C50.912 Malignant neoplasm of unspecified site of left female breast
CPT/HCPCS: 85025; 96413; 96415; 96417; J9267; J9355; Q0166

== ENCOUNTER → 2019-01-10 10:07 | Outpatient (CLI) | payer MEDICARE, MEDICAID, SELFPAY ==
--- NOTE | 2019-01-10 10:10 | MR_ITS ---
MR head/brain wo con HISTORY: Brain mass, abnormal head CT with space occupying lesion. ITS.REASON: ABNORMAL CT OF HEAD ORDERING PHYSICIAN: Sunny Hodge PATIENT AGE: 73 years Comparison: 07/09/2018, 11/23/2014 TECHNIQUE: Standard multiplanar multiecho sequences are performed without contrast. FINDINGS: There is a large left frontal mass which appears extra axial. This measures 6.6 cm AP, 4.7 cm transverse, and 5.4 cm cephalad to caudad. On MRI of 11/23/2014 mismatch measured 4.9x 3.8 x 4.7 cm in similar dimensions. This is extra-axial in nature and is isointense on T1 and T2 showing slight increased signal on the FLAIR images and also demonstrating restricted diffusion consistent with a meningioma. The mass appears to have increased in size compared to the CT scan of 07/09/2018 at that time measuring 5.3 cm AP and 4.5 cm transverse with some increase in AP dimension of the lesion. There is some [id number] midline shift toward the right x 9 mm with some subfalcine herniation. No hydrocephalus. No obvious acute infarction. There is generalized atrophy with periventricular ischemic gliotic changes. There is moderate attenuation of the frontal horn of left lateral ventricle. Mild amount of peritumoral edema. No transtentorial herniation. The cerebellopontine angles, cerebellum, and brainstem are unremarkable. There is left mastoid effusion and there is mild mucosal thickening in the sphenoid and right maxillary sinus. IMPRESSION: Large left frontal mass as described above consistent with a meningioma appears to have slightly increased in size since a CT scan on 718. There is mild subfalcine herniation with 9 mm midline shift toward the right. The midline shift is probably not significantly changed compared to the CT scan of 07/09/2018 but has developed since the old MRI of 11/23/2014. The mass has increased in size since 11/23/2014 MRI now measuring 6.6 x 4.7 x 5.4 cm and previously measuring 4.8 x 3.8 x 4.7 cm on the previous MRI
--- NOTE | 2019-01-10 11:05 | FL_ITS ---
FL barium swallow modified: 01/10/2019 11:05 AM CLINICAL HISTORY: Dysphagia ORDERING PHYSICIAN: Sunny Hodge PATIENT AGE: 73 years Comparison: None TECHNIQUE: Patient administered varying consistencies of barium contrast, while viewed in lateral position under real-time fluoroscopy with cine recording. FLUOROSCOPY TIME: 1 minute 21 seconds The study was performed in conjunction with speech pathologist. Please see that report & recommendations. FINDINGS: Patient was given varying consistencies of barium. Prominent anterior spurs are noted at C3-C4 and C5 causing indentation upon the posterior aspect of the esophagus. No vestibular penetration or tracheal aspiration is evident.. IMPRESSION: Unremarkable modified barium swallow Please see speech pathologist report and recommendations.
--- NOTE | 2019-01-10 12:11 | HMH.SLMBS2 ---
Speech & Language Evaluation Speech/Language Mod Barium Swallow Start: 01/10/19 11:50 Freq: once Status: Complete Protocol: Document 01/10/19 11:50 LIZETT (Rec: 01/10/19 12:11 LIZETT [id number]) [facility] Recommendations Diet Dietary Recommendations Pureed Pudding Liquids Treatment/Strategies Strategy/Precaution Recommend Sitting Upright (90 deg) Mod Barium Swallow Impressions Summary and Impressions Oral Phase Impression Moderate Impairment Oral Phase Summary poor bolus formation and rapid oral transit time Pharyngeal Phase Impression Moderate Impairment Pharyngeal Phase Summary Penetration of liquids nectar and honey. Speech/Language MBS Assessment/Goals/Plan Assessment Date of Evaluation: 01/10/19 Evaluation Type Initial Certification Assessment/Problems Dysphagia Does Patient Qualify for Service Yes Qualify/Failure Comment Pt presents with rapid oral transit time and poor bolus formation, penetration of nectar and honey thickened liquids with chin tuck. Recommendations PHYSICIAN CERTIFICATION: The specified therapy services are required, authorized, and reviewed every 30 days. Liquid Type Recommendations Pudding Consistency SL Swallow Guidelines High aspiration risk Crush Meds Crush all meds Dysphagia Swallow Precautions/Strategies Sitting Upright (90 deg) Chin Tuck No Straw Plan Pt/Guardian verbally ack understanding Yes of dx/prognosis/goals Pt/Guardian verbally ack understanding Yes of/consent to tx prog G -code Required Yes G-CODES ST Current Status [id number] ST Current Status Modifier CK-At least 40% but less than 60% impaired, limited or restricted ST Goal Status [id number] ST Goal Status Modifier CK-At least 40% but less than 60% impaired, limited or restricted Education Instructions provided [facility] note written and sent with patient/aide; [employer] SUPERVISOR at [facility] advised of findings. Pt/Caregiver able to recall information Able to recall/restate Reinforcement needed Yes Mod Barium Swallow-Lat View Textures Lateral View Food Presentation [place] Liquid via Spoon Honey Liquid via Spoon Pureed Food- Thick Pudding Comment [place] thick, honey thick and
== END ==
PROVIDERS: PCP Emergency Medicine; Visit Provider Nurse Practitioner Family
DX: R13.10 Dysphagia, unspecified (principal); R93.0 Abnormal findings on diagnostic imaging of skull and head, not elsewhere classified
CPT/HCPCS: 70371; 70551; 92611

== ENCOUNTER 2019-01-13 09:00 | Outpatient (CLI) | payer MEDICARE, MEDICAID, SELFPAY ==
[2019-01-13] VITALS (12 sets, daily range): BP systolic 146–183; BP diastolic 61–78; PULSE 82–89; RESP 18; TEMP 36.6; O2SAT 92; BMI 18.8
[2019-01-13 09:23] LABS: Basophils % 0.6 % (0.1-2.0); Hemoglobin 12.4 g/dL (12.2-16.2); Lymphocytes # 1.2 K/mm3 (0.7-4.5); Mean Corpuscular Hemoglobin 28.6 pg (27.0-31.2); Mean Corpuscular Volume 92.2 fl (81-99); Mean Platelet Volume 7.1 fl (7.4-10.4); Monocytes # 0.2 K/mm3 (0.1-1.0); Monocytes % 5.5 % (1.7-9.3); Neutrophils # 1.9 K/mm3 (1.8-7.8); Neutrophils % 56.9 % (37.0-80.0); Platelet Count 461 K/mm3 (142-424); Red Blood Count 4.34 M/mm3 (4.20-5.40); Red Cell Distribution Width 15.7 % (11.5-17.5); White Blood Count 3.3 K/mm3 (4.8-10.8)
--- NOTE | 2019-01-13 12:54 | PC.NURSE ---
Spoke with Dr. Medina about taxol rate, since patient is getting a weekly dose rate can run faster than 3 hours.
== END 2019-01-13 13:40 | disposition home or self-care (01) ==
LOC: INF 09:00
PROVIDERS: Visit Provider Internal Medicine Medical Oncology
DX: Z51.11 Encounter for antineoplastic chemotherapy (principal); C50.912 Malignant neoplasm of unspecified site of left female breast
CPT/HCPCS: 85025; 96413; 96415; 96417; J9267; J9355; Q0166

== ENCOUNTER 2019-01-20 08:53 | Outpatient (CLI) | payer MEDICARE, MEDICAID, SELFPAY ==
[2019-01-20] VITALS (10 sets, daily range): BP systolic 111–127; BP diastolic 51–64; PULSE 85–91; RESP 16–18; TEMP 36.8; BMI 20.2
[2019-01-20 09:11] LABS: Basophils % 0.9 % (0.1-2.0); Eosinophils % 0.7 % (0.1-12.0); Hematocrit 39.2 % (37.0-47.0); Hemoglobin 11.9 g/dL (12.2-16.2); Lymphocytes # 0.9 K/mm3 (0.7-4.5); Lymphocytes % 25.8 % (10-50); Mean Corpuscular HGB Conc 30.3 g/dL (31.8-35.4); Mean Corpuscular Hemoglobin 28.3 pg (27.0-31.2); Mean Corpuscular Volume 93.2 fl (81-99); Mean Platelet Volume 7.3 fl (7.4-10.4); Monocytes # 0.1 K/mm3 (0.1-1.0); Monocytes % 3.4 % (1.7-9.3); Neutrophils # 2.4 K/mm3 (1.8-7.8); Neutrophils % 69.2 % (37.0-80.0); Platelet Count 446 K/mm3 (142-424); Red Cell Distribution Width 16.4 % (11.5-17.5); White Blood Count 3.4 K/mm3 (4.8-10.8)
== END 2019-01-20 13:00 | disposition home or self-care (01) ==
LOC: INF 08:53
PROVIDERS: Visit Provider Internal Medicine Medical Oncology
DX: C50.912 Malignant neoplasm of unspecified site of left female breast (principal); Z51.11 Encounter for antineoplastic chemotherapy
CPT/HCPCS: 85025; 96413; 96415; 96417; J9267; J9355; Q0166

== ENCOUNTER → 2019-01-27 13:30 | Outpatient (CLI) | payer MEDICARE, MEDICAID, SELFPAY ==
[2019-01-27 13:55] LABS: Eosinophils % 0.2 % (0.1-12.0); Hematocrit 38.1 % (37.0-47.0); Hemoglobin 11.9 g/dL (12.2-16.2); Lymphocytes # 1.3 K/mm3 (0.7-4.5); Lymphocytes % 54.2 % (10-50); Mean Corpuscular HGB Conc 31.1 g/dL (31.8-35.4); Mean Corpuscular Hemoglobin 28.5 pg (27.0-31.2); Mean Corpuscular Volume 91.5 fl (81-99); Mean Platelet Volume 6.8 fl (7.4-10.4); Monocytes # 0.1 K/mm3 (0.1-1.0); Monocytes % 4.5 % (1.7-9.3); Platelet Count 399 K/mm3 (142-424); Red Blood Count 4.17 M/mm3 (4.20-5.40); Red Cell Distribution Width 16.8 % (11.5-17.5); White Blood Count 2.4 K/mm3 (4.8-10.8)
[2019-01-27 14:05] LABS: MANUAL DIFFERENTIAL MANUAL DIFFERENTIAL (MANUAL DIFF)
[2019-01-27 17:17] LABS: Lymphocytes % 54 % (10-50); Monocytes % 4 % (2-9); Neutrophils % 42 % (42-76); Total Cells Counted 100
[2019-01-27 17:18] LABS: Anisocytosis 1+
[2019-01-27 17:19] LABS: Macrocytosis 1+; Platelet Estimate Normal
== END ==
PROVIDERS: Visit Provider Internal Medicine Medical Oncology
DX: C50.912 Malignant neoplasm of unspecified site of left female breast (principal)
CPT/HCPCS: 36415; 85007; 85025

== ENCOUNTER 2019-02-02 10:00 | Outpatient (CLI) | payer MEDICARE, MEDICAID, SELFPAY ==
[2019-02-02] VITALS (10 sets, daily range): BP systolic 131–158; BP diastolic 79–87; PULSE 85–90; RESP 15–18; TEMP 36.6; O2SAT 93; BMI 19.9
[2019-02-02 10:26] LABS: Basophils % 0.9 % (0.1-2.0); Hematocrit 39.3 % (37.0-47.0); Hemoglobin 11.9 g/dL (12.2-16.2); Lymphocytes # 1.1 K/mm3 (0.7-4.5); Mean Corpuscular HGB Conc 30.3 g/dL (31.8-35.4); Mean Corpuscular Volume 92.5 fl (81-99); Mean Platelet Volume 7.3 fl (7.4-10.4); Monocytes # 0.4 K/mm3 (0.1-1.0); Monocytes % 10.3 % (1.7-9.3); Neutrophils % 56.8 % (37.0-80.0); Platelet Count 376 K/mm3 (142-424); Red Blood Count 4.25 M/mm3 (4.20-5.40); Red Cell Distribution Width 17.1 % (11.5-17.5); White Blood Count 3.5 K/mm3 (4.8-10.8)
== END 2019-02-02 14:15 | disposition home or self-care (01) ==
LOC: INF 10:12
PROVIDERS: Visit Provider Internal Medicine Medical Oncology
DX: Z51.11 Encounter for antineoplastic chemotherapy (principal); C50.012 Malignant neoplasm of nipple and areola, left female breast
CPT/HCPCS: 36415; 85025; 96413; 96415; 96417; J9267; J9355; Q0166

== ENCOUNTER 2019-02-09 08:45 | Outpatient (CLI) | payer MEDICARE, MEDICAID, SELFPAY ==
[2019-02-09] VITALS (10 sets, daily range): BP systolic 130–159; BP diastolic 66–82; PULSE 80–91; RESP 16–18; TEMP 36.5; BMI 19.9
[2019-02-09 09:13] LABS: Basophils % 0.8 % (0.1-2.0); Eosinophils % 0.1 % (0.1-12.0); Hematocrit 39.2 % (37.0-47.0); Lymphocytes # 1.2 K/mm3 (0.7-4.5); Lymphocytes % 37.3 % (10-50); Mean Corpuscular HGB Conc 30.7 g/dL (31.8-35.4); Mean Corpuscular Hemoglobin 27.8 pg (27.0-31.2); Mean Corpuscular Volume 90.7 fl (81-99); Mean Platelet Volume 7.1 fl (7.4-10.4); Monocytes # 0.2 K/mm3 (0.1-1.0); Monocytes % 5.4 % (1.7-9.3); Neutrophils # 1.8 K/mm3 (1.8-7.8); Neutrophils % 56.4 % (37.0-80.0); Platelet Count 384 K/mm3 (142-424); Red Blood Count 4.32 M/mm3 (4.20-5.40); Red Cell Distribution Width 17.3 % (11.5-17.5); White Blood Count 3.2 K/mm3 (4.8-10.8)
== END 2019-02-09 14:45 | disposition home or self-care (01) ==
LOC: INF 08:48
PROVIDERS: Visit Provider Internal Medicine Medical Oncology
DX: C50.912 Malignant neoplasm of unspecified site of left female breast (principal); Z51.11 Encounter for antineoplastic chemotherapy
CPT/HCPCS: 85025; 96413; 96415; 96417; J9267; J9355; Q0166

== ENCOUNTER 2019-02-16 08:51 | Outpatient (CLI) | payer MEDICARE, MEDICAID, SELFPAY ==
[2019-02-16] VITALS (11 sets, daily range): BP systolic 127–158; BP diastolic 69–89; PULSE 80–94; RESP 16–18; TEMP 36.2; O2SAT 93; BMI 20.5
[2019-02-16 09:16] LABS: Basophils % 0.8 % (0.1-2.0); Hemoglobin 12.6 g/dL (12.2-16.2); Lymphocytes % 21.8 % (10-50); Mean Corpuscular HGB Conc 30.7 g/dL (31.8-35.4); Mean Corpuscular Hemoglobin 27.8 pg (27.0-31.2); Mean Corpuscular Volume 90.6 fl (81-99); Mean Platelet Volume 6.8 fl (7.4-10.4); Monocytes # 0.2 K/mm3 (0.1-1.0); Monocytes % 5.5 % (1.7-9.3); Neutrophils # 3.1 K/mm3 (1.8-7.8); Neutrophils % 70.9 % (37.0-80.0); Platelet Count 383 K/mm3 (142-424); Red Blood Count 4.53 M/mm3 (4.20-5.40); Red Cell Distribution Width 18.1 % (11.5-17.5); White Blood Count 4.4 K/mm3 (4.8-10.8)
== END 2019-02-16 13:30 | disposition home or self-care (01) ==
LOC: INF 08:52
PROVIDERS: Visit Provider Internal Medicine Medical Oncology
DX: Z51.11 Encounter for antineoplastic chemotherapy (principal); C50.912 Malignant neoplasm of unspecified site of left female breast
CPT/HCPCS: 85025; 96413; 96415; 96417; J9267; J9355; Q0166

== ENCOUNTER 2019-02-23 08:30 | Outpatient (CLI) | payer MEDICARE, MEDICAID, SELFPAY ==
[2019-02-23] VITALS (10 sets, daily range): BP systolic 122–151; BP diastolic 70–84; PULSE 86–97; RESP 16–18; TEMP 36.9–37.1; O2SAT 93; BMI 20.5
[2019-02-23 09:06] LABS: Basophils % 0.7 % (0.1-2.0); Eosinophils % 0.3 % (0.1-12.0); Hemoglobin 12.1 g/dL (12.2-16.2); Lymphocytes # 1.2 K/mm3 (0.7-4.5); Lymphocytes % 32.9 % (10-50); Mean Corpuscular Hemoglobin 27.8 pg (27.0-31.2); Mean Corpuscular Volume 89.7 fl (81-99); Mean Platelet Volume 6.7 fl (7.4-10.4); Monocytes # 0.2 K/mm3 (0.1-1.0); Monocytes % 5.9 % (1.7-9.3); Neutrophils # 2.2 K/mm3 (1.8-7.8); Neutrophils % 60.4 % (37.0-80.0); Platelet Count 422 K/mm3 (142-424); Red Blood Count 4.35 M/mm3 (4.20-5.40); Red Cell Distribution Width 18.3 % (11.5-17.5); White Blood Count 3.6 K/mm3 (4.8-10.8)
== END 2019-02-23 13:25 | disposition home or self-care (01) ==
LOC: INF 08:39
PROVIDERS: Visit Provider Internal Medicine Medical Oncology
DX: Z51.11 Encounter for antineoplastic chemotherapy (principal); C50.912 Malignant neoplasm of unspecified site of left female breast
CPT/HCPCS: 85025; 96413; 96415; 96417; J9267; J9355; Q0166

== ENCOUNTER → 2019-03-01 12:41 | Outpatient (CLI) | payer MEDICARE, MEDICAID, SELFPAY ==
--- NOTE | 2019-03-01 12:44 | FL_ITS ---
FL barium swallow modified: 03/01/2019 12:44 PM CLINICAL HISTORY: Dysphagia ORDERING PHYSICIAN: Haider Beauchamp MD PATIENT AGE: 73 years Comparison: None TECHNIQUE: Patient administered varying consistencies of barium contrast, while viewed in lateral position under real-time fluoroscopy with cine recording. FLUOROSCOPY TIME: 2 minutes and 7 seconds The study was performed in conjunction with speech pathologist. Please see that report & recommendations. FINDINGS: Patient was given varying consistencies of barium. There is prominent spurring along the anterior cervical spine at C3-C4 and C5. This does cause some compression upon the posterior aspect of the esophagus. There was minimal posterior penetration with thin liquids. No tracheal aspiration. There is mild residue. IMPRESSION: No obvious aspiration. Minimal penetration with thin liquids with mild pharyngeal residual
--- NOTE | 2019-03-01 13:55 | HMH.SLMBS2 ---
Speech & Language Evaluation Speech/Language Mod Barium Swallow Start: 03/01/19 13:42 Freq: once Status: Complete Protocol: Document 03/01/19 13:42 MEL (Rec: 03/01/19 13:55 MEL [id number]) [facility] Recommendations Diet Dietary Recommendations Dysphagia Mechanical Soft,Thin Liquids Comment with supervision Treatment/Strategies Strategy/Precaution Recommend Sitting Upright (90 deg),Small Bites and Sips,Alternate Liquids/Solids Mod Barium Swallow Impressions Summary and Impressions Oral Phase Impression Mild Impairment Oral Phase Summary Decreased bolus formation along with premature spillage and scattered loss with regular mechanical soft. Pharyngeal Phase Impression Mild Impairment Pharyngeal Phase Summary Penetration into laryngeal vestibule with all liquid consistencies and minimal vallecular residue with mechanical soft. Speech/Language MBS Assessment/Goals/Plan Assessment Date of Evaluation: 03/01/19 Evaluation Type Initial Certification Assessment/Problems Dysphagia. Does Patient Qualify for Service No Qualify/Failure Comment Patient will be followed up by STORY EDITOR at [facility] for further recommendations Plan Pt/Guardian verbally ack understanding Yes of dx/prognosis/goals G -code Required Yes G-CODES ST Current Status [id number] ST Current Status Modifier CJ-At least 20% but less than 40% impaired, limited or restricted ST Goal Status [id number] ST Goal Status Modifier CJ-At least 20% but less than 40% impaired, limited or restricted Mod Barium Swallow Setup Exam Setup Radiologist Daryl Dodge Level of Consciousness Awake,Alert,Appropriate, Follows Commands Position (degrees) 90 Mod Barium Swallow-Lat View Textures Lateral View Food Presentation Thin Liquid via Spoon,Thin Liquid via Cup,Thin Liquid via Straw,Malinta Liquid via Spoon ,[place]inta Liquid via Cup,[place]inta Liquid via Straw,Honey Liquid via Spoon,Honey Liquid via Cup ,Honey Liquid via Straw,Pureed Food- Thick,Ground Food-
== END ==
PROVIDERS: PCP Emergency Medicine; Visit Provider Emergency Medicine
DX: R13.10 Dysphagia, unspecified (principal)
CPT/HCPCS: 70371; 92611

== ENCOUNTER 2019-03-03 10:30 | Outpatient (CLI) | payer MEDICARE, MEDICAID, SELFPAY ==
[2019-03-03] VITALS (11 sets, daily range): BP systolic 128–163; BP diastolic 66–88; PULSE 83–90; RESP 18–20; TEMP 36.6–36.7; O2SAT 92; BMI 20.5
[2019-03-03 10:57] LABS: Basophils % 0.6 % (0.1-2.0); Eosinophils % 0.2 % (0.1-12.0); Hematocrit 38.2 % (37.0-47.0); Hemoglobin 11.9 g/dL (12.2-16.2); Mean Corpuscular Hemoglobin 27.8 pg (27.0-31.2); Mean Corpuscular Volume 89.6 fl (81-99); Mean Platelet Volume 7.1 fl (7.4-10.4); Monocytes # 0.2 K/mm3 (0.1-1.0); Monocytes % 5.6 % (1.7-9.3); Neutrophils # 2.3 K/mm3 (1.8-7.8); Neutrophils % 64.5 % (37.0-80.0); Platelet Count 418 K/mm3 (142-424); Red Blood Count 4.26 M/mm3 (4.20-5.40); White Blood Count 3.5 K/mm3 (4.8-10.8)
== END 2019-03-03 16:20 | disposition home or self-care (01) ==
LOC: INF 10:36
PROVIDERS: Visit Provider Internal Medicine Medical Oncology
DX: Z51.11 Encounter for antineoplastic chemotherapy (principal); C50.912 Malignant neoplasm of unspecified site of left female breast
CPT/HCPCS: 85025; 96413; 96415; 96417; J9267; J9355; Q0166

== ENCOUNTER 2019-03-09 09:26 | Outpatient (CLI) | payer MEDICARE, MEDICAID, SELFPAY ==
[2019-03-09 09:30] VITALS: BMI 21.6
[2019-03-09 09:45] LABS: Basophils % 0.5 % (0.1-2.0); Eosinophils % 0.4 % (0.1-12.0); Hematocrit 35.6 % (37.0-47.0); Hemoglobin 11.2 g/dL (12.2-16.2); Lymphocytes # 0.9 K/mm3 (0.7-4.5); Lymphocytes % 24.2 % (10-50); Mean Corpuscular HGB Conc 31.5 g/dL (31.8-35.4); Mean Corpuscular Hemoglobin 28.1 pg (27.0-31.2); Mean Corpuscular Volume 89.3 fl (81-99); Mean Platelet Volume 6.9 fl (7.4-10.4); Monocytes # 0.2 K/mm3 (0.1-1.0); Monocytes % 4.2 % (1.7-9.3); Neutrophils # 2.7 K/mm3 (1.8-7.8); Neutrophils % 70.7 % (37.0-80.0); Platelet Count 388 K/mm3 (142-424); Red Blood Count 3.99 M/mm3 (4.20-5.40); Red Cell Distribution Width 19.1 % (11.5-17.5); White Blood Count 3.9 K/mm3 (4.8-10.8)
[2019-03-09 10:38] VITALS: BP 142/78; PULSE 85; RESP 18; TEMP 36.4; O2SAT 92
[2019-03-09 11:08] VITALS: BP 149/76; PULSE 84; RESP 18; O2SAT 93
[2019-03-09 11:38] VITALS: BP 145/72; PULSE 88; RESP 18; O2SAT 92
[2019-03-09 12:08] VITALS: BP 151/76; PULSE 81; RESP 18; O2SAT 93
[2019-03-09 12:38] VITALS: BP 158/73; PULSE 84; RESP 18; O2SAT 92
[2019-03-09 13:15] VITALS: BP 156/80; PULSE 87; RESP 18; O2SAT 93
== END 2019-03-09 13:15 | disposition home or self-care (01) ==
LOC: INF 09:27
PROVIDERS: Visit Provider Internal Medicine Medical Oncology
DX: C50.912 Malignant neoplasm of unspecified site of left female breast (principal); Z51.11 Encounter for antineoplastic chemotherapy
CPT/HCPCS: 85025; 96413; 96415; 96417; J9267; J9355; Q0166

== ENCOUNTER 2019-03-17 08:30 | Outpatient (CLI) | payer MEDICARE, SELFPAY ==
[2019-03-17 08:31] VITALS: BMI 19.8
[2019-03-17 08:50] LABS: Basophils # 0.1 K/mm3 (0-0.2); Basophils % 1.1 % (0.1-2.0); Eosinophils % 0.4 % (0.1-12.0); Hematocrit 38.2 % (37.0-47.0); Hemoglobin 11.9 g/dL (12.2-16.2); Lymphocytes # 1.2 K/mm3 (0.7-4.5); Lymphocytes % 24.3 % (10-50); Mean Corpuscular HGB Conc 31.3 g/dL (31.8-35.4); Mean Corpuscular Hemoglobin 28.7 pg (27.0-31.2); Mean Corpuscular Volume 91.7 fl (81-99); Mean Platelet Volume 6.6 fl (7.4-10.4); Monocytes # 0.3 K/mm3 (0.1-1.0); Monocytes % 6.2 % (1.7-9.3); Neutrophils # 3.3 K/mm3 (1.8-7.8); Platelet Count 456 K/mm3 (142-424); Red Blood Count 4.16 M/mm3 (4.20-5.40); Red Cell Distribution Width 19.9 % (11.5-17.5); White Blood Count 4.8 K/mm3 (4.8-10.8)
[2019-03-17 09:07] LABS: Alanine Aminotransferase 18 U/L (12-78); Albumin Level 3.8 gm/dL (3.4-5.0); Alkaline Phosphatase 113 U/L (46-116); Anion Gap 16.7 mEq/L (5-15); Aspartate Amino Transferase 8 U/L (15-37); Bilirubin,Total 0.3 mg/dL (0.2-1.0); Blood Urea Nitrogen 7 mg/dL (7-18); Carbon Dioxide 26 mmol/L (21.0-32.0); Chloride 104 mmol/L (98-107); Creatinine Clearance Estimated 38 mL/min (50-200); Creatinine,Serum 1.05 mg/dL (0.55-1.02); Estimated Glomerular Filt Rate 51 ml/min (>60); GFR (African American) 62 ML/MIN (>60); Globulin 3.9 gm/dl (1.3-3.2); Glucose 106 mg/dL (74-106); Potassium 3.7 mmoL/L (3.5-5.1); Sodium 143 mmol/L (136-145); Total Protein,Serum 7.7 gm/dL (6.4-8.2)
[2019-03-17 10:06] VITALS: BP 135/64; PULSE 85; RESP 18; TEMP 36.6; O2SAT 92
[2019-03-17 10:36] VITALS: BP 131/61; PULSE 88; RESP 18; O2SAT 93
[2019-03-17 11:06] VITALS: BP 145/66; PULSE 84; RESP 18; O2SAT 92
[2019-03-17 11:36] VITALS: BP 138/68; PULSE 85; RESP 18; O2SAT 92
[2019-03-17 12:06] VITALS: BP 141/67; PULSE 82; RESP 18; O2SAT 91
[2019-03-17 12:40] VITALS: BP 133/64; PULSE 81; RESP 18; O2SAT 92
== END 2019-03-17 12:45 | disposition home or self-care (01) ==
LOC: INF 08:30
PROVIDERS: Visit Provider Internal Medicine Medical Oncology
DX: Z51.11 Encounter for antineoplastic chemotherapy (principal); C50.912 Malignant neoplasm of unspecified site of left female breast
CPT/HCPCS: 80053; 85025; 96413; 96415; 96417; J9267; J9355; Q0166

== ENCOUNTER 2019-03-23 09:17 | Outpatient (CLI) | payer MEDICARE, SELFPAY ==
[2019-03-23] VITALS (11 sets, daily range): BP systolic 157–178; BP diastolic 78–94; PULSE 84–93; RESP 18; TEMP 36.4–36.6; BMI 21.6
--- NOTE | 2019-03-23 09:24 | CA_ITS ---
PROCEDURE: 2-D M-mode and color Doppler study INDICATIONS FOR THE TEST: Chest pain + COPD Heart Murmur Tobacco Smoking Palpitations Fatigue Syncope Edema Hypertension+Diabetes Mellitus Rheumatic Fever SOB+PEARSON Obesity Hyperlipidemia Family History HD Additional History BREAST CA, UNDERGOING CHEMO PATIENT INFORMATION HEIGHT: 60 WEIGHT:122 GENDER: Female B/P:142/74 2-D/M-MODE INTERPRETATION: 2-D MEASUREMENTS OBSERVED VALUES IN CMS Right Ventricular Dimension (RVDd) 2.4 Interventricular Septum (Thickness)(IVsd) 1.7 Left Ventricular Internal Dimensions(LVIDd) 4.3 Left Ventricular Posterior Wall (Thickness)(LVPWd) 0.9 Aortic Root 3.1 Aortic Cusp Separation 2.1 Left Atrial Dimensions (LAD) 3.8 2D 1. Left atrium is mildly enlarged, left ventricle is normal size, mild concentric left ventricular hypertrophy, visually estimated ejection fraction 55% with no regional wall motion abnormality. 2. The right atrium and right ventricle are normal size and contractility. 3. The aortic valve is minimally thickened and fibrosed. 4. The mitral and tricuspid valvular grossly normal. 5. The pulmonic valve is poorly visualized. 6. No significant pericardial effusion noted. DOPPLER INTERROGATION: Doppler interrogation of the aortic, mitral and tricuspid valvular presence of mild mitral and tricuspid regurgitation, tricuspid regurgitation jet velocity is inadequate for calculation of the right ventricular systolic pressure, grade 1 diastolic dysfunction seen without tissue Doppler evidence of raised left atrial pressure. CONCLUSION: 1. Mildly enlarged left atrium, normal left ventricular size, mild concentric left ventricular hypertrophy, visually estimated ejection fraction 55% with no regional wall motion abnormality, grade 1 diastolic dysfunction seen without tissue Doppler evidence of raised left atrial pressure. 2. Mild mitral and tricuspid regurgitation 3. No significant pericardial effusion noted.
--- NOTE | 2019-03-23 10:03 | MR_ITS ---
MR shoulder LT wo/w con HISTORY:Severe left shoulder pain, history of breast cancer, limited range of motion ITS.REASON: SEVERE LEFT SHOULDER PAIN ORDERING PHYSICIAN: Chica Medina MD PATIENT AGE: 73 years Comparison: None TECHNIQUE: Standard multiplanar multiecho sequences are performed without and with gadolinium enhancement. FINDINGS: There are hypertrophic changes of the acromioclavicular joint. No significant subacromial stenosis.. There is slight increased T2 signal involving the distal aspect of the supraspinatus tendon consistent with tendinopathy/tendinosis with some undersurface irregularity of the distal supraspinatus tendon posteriorly suggesting a partial tear. No evidence of complete tear. The infraspinatus, subscapularis tendon, and teres minor tendons have an unremarkable appearance. No obvious labral tear. No shoulder joint effusion. The bicipital tendon is in place. No destructive lesions are evident. There is a small area of subchondral cystic change at the posterior aspect of the humeral head at the base of the greater tuberosity. This is a typical area for subchondral cystic change. The study shows some increased T2 signal and some mild enhancement consistent with some localized inflammation. The appearance would be atypical for metastatic disease. No significant shoulder effusion is evident. IMPRESSION: 1. There is some undersurface irregularity of the supraspinatus tendon distally and posteriorly suggesting a partial rotator cuff tear. No full-thickness tear is evident. There are mild osteoarthritic changes of the acromioclavicular joint. 2. Subchondral cystic changes of the humeral head with increased T2 signal and mild enhancement suggesting localized inflammation. 3. No convincing evidence of neoplastic process/metastatic disease
--- NOTE | 2019-03-23 11:23 | HMH.ITSHM ---
Current Home Medications as stated by this patient Dona Jose or insurance follow up representative. []ACETAMINOPHEN HYDROCODONE IBUPROFEN LACTULOSE LEVALBUTEROL ONDANSETRON VENTOLIN AMLODIPINE BREO ELLIPTA CILOSTAZOL LACTULOSE LETROZOLE MITRAZAPINE OLANZAPINE POLYTHYLENE QUETIAPINE FUMARATE TRAZADONE VALPROIC ACID
[2019-03-23 11:50] LABS: Basophils % 0.8 % (0.1-2.0); Hematocrit 38.9 % (37.0-47.0); Hemoglobin 12.1 g/dL (12.2-16.2); Lymphocytes # 1.4 K/mm3 (0.7-4.5); Lymphocytes % 36.5 % (10-50); Mean Corpuscular HGB Conc 31.1 g/dL (31.8-35.4); Mean Corpuscular Hemoglobin 28.6 pg (27.0-31.2); Mean Corpuscular Volume 91.9 fl (81-99); Mean Platelet Volume 7.2 fl (7.4-10.4); Monocytes # 0.2 K/mm3 (0.1-1.0); Monocytes % 4.4 % (1.7-9.3); Neutrophils # 2.2 K/mm3 (1.8-7.8); Neutrophils % 57.2 % (37.0-80.0); Platelet Count 361 K/mm3 (142-424); Red Blood Count 4.23 M/mm3 (4.20-5.40); Red Cell Distribution Width 19.6 % (11.5-17.5); White Blood Count 3.8 K/mm3 (4.8-10.8)
== END 2019-03-23 15:25 | disposition home or self-care (01) ==
LOC: RT 09:18 → INF 11:13
PROVIDERS: PCP Emergency Medicine; Visit Provider Internal Medicine Medical Oncology
DX: R06.02 Shortness of breath (principal); C50.912 Malignant neoplasm of unspecified site of left female breast; M25.512 Pain in left shoulder; Z51.11 Encounter for antineoplastic chemotherapy
CPT/HCPCS: 73223; 85025; 93306; 96413; 96415; 96417; A9576; J9267; J9355; Q0166

== ENCOUNTER 2019-03-31 09:39 | Outpatient (CLI) | payer MEDICARE, SELFPAY ==
[2019-03-31] VITALS (7 sets, daily range): BP systolic 140–150; BP diastolic 71–79; PULSE 81–88; RESP 18; TEMP 36.6; O2SAT 97–98; BMI 19.8
[2019-03-31 09:56] LABS: Basophils % 0.9 % (0.1-2.0); Eosinophils % 0.2 % (0.1-12.0); Hematocrit 36.9 % (37.0-47.0); Hemoglobin 11.4 g/dL (12.2-16.2); Lymphocytes # 1.2 K/mm3 (0.7-4.5); Lymphocytes % 37.4 % (10-50); Mean Corpuscular Hemoglobin 28.1 pg (27.0-31.2); Mean Corpuscular Volume 90.8 fl (81-99); Monocytes # 0.3 K/mm3 (0.1-1.0); Neutrophils # 1.7 K/mm3 (1.8-7.8); Neutrophils % 53.5 % (37.0-80.0); Platelet Count 402 K/mm3 (142-424); Red Blood Count 4.06 M/mm3 (4.20-5.40); White Blood Count 3.1 K/mm3 (4.8-10.8)
[2019-03-31 10:22] LABS: Alanine Aminotransferase 15 U/L (12-78); Albumin Level 3.4 gm/dL (3.4-5.0); Alkaline Phosphatase 93 U/L (46-116); Anion Gap 10.2 mEq/L (5-15); Aspartate Amino Transferase 5 U/L (15-37); Bilirubin,Total 0.3 mg/dL (0.2-1.0); Blood Urea Nitrogen 11 mg/dL (7-18); Calcium 8.7 mg/dL (8.5-10.1); Carbon Dioxide 28 mmol/L (21.0-32.0); Chloride 106 mmol/L (98-107); Creatinine Clearance Estimated 40 mL/min (50-200); Creatinine,Serum 0.94 mg/dL (0.55-1.02); Estimated Glomerular Filt Rate 58 ml/min (>60); GFR (African American) 70 ML/MIN (>60); Globulin 3.3 gm/dl (1.3-3.2); Glucose 94 mg/dL (74-106); Potassium 4.2 mmoL/L (3.5-5.1); Sodium 140 mmol/L (136-145); Total Protein,Serum 6.7 gm/dL (6.4-8.2)
== END 2019-03-31 13:40 | disposition home or self-care (01) ==
LOC: INF 09:39
PROVIDERS: Visit Provider Internal Medicine Medical Oncology
DX: C50.919 Malignant neoplasm of unspecified site of unspecified female breast (principal)
CPT/HCPCS: 80053; 85025; 96413; 96415; 96417; J9267; J9355; Q0166

== ENCOUNTER → 2019-04-29 08:57 | Outpatient (CLI) | payer MEDICARE, MEDICAID, SELFPAY ==
--- NOTE | 2019-04-29 08:59 | XR_ITS ---
XR shoulder LT min 2V HISTORY: ITS.REASON: left shoulder pain ORDERING PHYSICIAN: Jorge Anderson MD PATIENT AGE: 73 years Comparison: None FINDINGS: No fracture or dislocation. No lytic or blastic change. There is normal mineralization. The joint spaces are well-preserved. No significant degenerative/arthritic changes. No erosive changes evident. IMPRESSION: Negative, no acute finding
== END ==
PROVIDERS: PCP Emergency Medicine; Visit Provider Orthopaedic Surgery
DX: M25.512 Pain in left shoulder (principal)
CPT/HCPCS: 73030

== ENCOUNTER → 2019-08-04 10:58 | Outpatient (CLI) | payer MEDICARE, MEDICAID, SELFPAY ==
--- NOTE | 2019-08-04 11:01 | CA_ITS ---
APPROVED REPORT EXAM: Comprehensive 2D, Doppler, and color-flow Echocardiogram Tumbler Operator: Violetta Pollard RDCS Ht: 5 ft 2 in Wt: 110lbs BSA: 1.48 BP: 136/76 mmHg Indications: COPD, Shortness of Breath, CVA/TIA, Hypertension/HDD,chemo breast cancer 2D Dimensions LVOT 2.10 cm (M/F) 1.5-2.5 M-Mode Dimensions RVDd 1.60 cm (0.9-2.6) LA Diam 2.70 cm (1.9-4.0) LVDd 4.60 cm (3.5-5.7) Ao Diam 2.90 cm (2.0-3.7) LVDs 3.20 cm (3.5-5.7) AV Cusp 1.40 cm (1.5-2.6) IVSd 0.70 cm (0.6-1.1) PWd 0.60 cm (0.6-1.1) EF (Teich) 57.90% FS 30.40% EDV (Teich) 97.30 mL ESV (Teich) 41.00 mL LV Diastology E/A Ratio 0.5 MED E' 4.78 (< 7 cm/sec) E'/MED E' Ratio 8.30 (>14) LAT E' 5.26 (<10 cm/sec) E/LAT E' Ratio 7.50 (>14) Mitral Valve MV E Max Simon. 39.50 (40-130 cm/s) MV A Velocity 80.50 (40-130 cm/s) E/A Ratio 0.50 Tricuspid Valve TR P. Velocity 339.00 cm/s RAP Estimate 10.00 mmHg RVSP 56.00 mmHg Left Ventricle Left atrium is mildly enlarged, left ventricle is normal size, mild concentric left ventricular hypertrophy, visually estimated ejection fraction 55% with no regional wall motion abnormality. Grade 1 diastolic dysfunction seen without tissue Doppler evidence of raise left atrial pressure. Right Ventricle Right atrium and right ventricular mildly enlarged with normal contractility. Aortic Valve Aortic valve is minimally thickened and fibrosed. There is no aortic stenosis aortic insufficiency. Mitral Valve Mitral valve leaflets are minimally thickened, there is no mitral stenosis, there is mild mitral regurgitation. Tricuspid Valve Tricuspid valve is grossly normal, there is moderate tricuspid regurgitation noted, calculated right ventricular systolic pressure is 63 mmHg consistent with moderately elevated right ventricular systolic pressure. Pulmonic Valve Pulmonic valve is poorly visualized. Great Vessels Aortic root is normal size. Pericardium No significant pericardial effusion noted. Conclusion 1. Biatrial enlargement, normal left ventricular size, mild concentric left ventricular hypertrophy, visually estimated ejection fraction 55% with no regional wall motion abnormality. Grade 1 diastolic dysfunction seen without tissue Doppler evidence of raise left atrial pressure. 2. Mildly enlarged right ventricle with normal contractility. 3. Mild mitral and moderate tricuspid regurgitation, calculated right ventricular systolic pressure is 63 mmHg consistent with moderately elevated right ventricular systolic pressure. 4. No significant pericardial effusion noted. Electronically signed by : Anuj Kennedy, 08/05/2019 14:08:07
== END ==
PROVIDERS: PCP Emergency Medicine; Visit Provider Internal Medicine Medical Oncology
DX: C50.912 Malignant neoplasm of unspecified site of left female breast (principal); Z51.11 Encounter for antineoplastic chemotherapy
CPT/HCPCS: 93306

== ENCOUNTER 2019-08-10 10:15 | Outpatient (CLI) | payer MEDICARE, MEDICAID, SELFPAY ==
[2019-08-10] VITALS (7 sets, daily range): BP systolic 125–144; BP diastolic 62–74; PULSE 74–82; RESP 18; TEMP 36.3; BMI 21.5
[2019-08-10 10:52] LABS: Basophils % 1.1 % (0.1-2.0); Eosinophils % 0.1 % (0.1-12.0); Hematocrit 40.7 % (37.0-47.0); Hemoglobin 11.9 g/dL (12.2-16.2); Lymphocytes % 25.7 % (10-50); Mean Corpuscular HGB Conc 29.2 g/dL (31.8-35.4); Mean Corpuscular Hemoglobin 26.7 pg (27.0-31.2); Mean Corpuscular Volume 91.3 fl (81-99); Mean Platelet Volume 8.4 fl (7.4-10.4); Monocytes # 0.4 K/mm3 (0.1-1.0); Monocytes % 8.9 % (1.7-9.3); Neutrophils # 2.5 K/mm3 (1.8-7.8); Neutrophils % 64.2 % (37.0-80.0); Platelet Count 251 K/mm3 (142-424); Red Blood Count 4.45 M/mm3 (4.20-5.40); Red Cell Distribution Width 17.5 % (11.5-17.5); White Blood Count 3.9 K/mm3 (4.8-10.8)
== END 2019-08-10 14:10 | disposition home or self-care (01) ==
LOC: INF 10:26
PROVIDERS: Visit Provider Internal Medicine Medical Oncology
DX: Z51.11 Encounter for antineoplastic chemotherapy (principal); C50.912 Malignant neoplasm of unspecified site of left female breast
CPT/HCPCS: 85025; 96413; 96415; J9355

== ENCOUNTER → 2019-08-24 11:06 | Outpatient (CLI) | payer MEDICARE, MEDICAID, SELFPAY ==
--- NOTE | 2019-08-24 11:10 | FL_ITS ---
PROCEDURE: FL BARIUM SWALLOW MODIFIED CLINICAL INDICATION: DYSPHAGIA COMPARISON: No exams were available for comparison TECHNIQUE: Patient administered varying consistencies of barium contrast, while viewed in lateral position under real-time fluoroscopy with cine recording. FLUOROSCOPY TIME:2 minutes and 56 seconds The study was performed in conjunction with speech pathologist. Please see that report & recommendations. FINDINGS: Patient was given varying consistencies of barium. There is prominent spurring of the cervical spine anteriorly at the C3-C4 and C5 level. There was a marked delay in initiation of the swallowing mechanism moderate stasis noted within the piriform sinuses there was some aspiration noted with thin liquids. IMPRESSION: Aspiration with thin liquids. Marked delay and stasis. Please see speech pathologist report and recommendations. Dictated by: Daryl Dodge MD 08/25/2019 12:10 Electronically signed by Daryl Dodge MD in [place] 08/25/2019 12:10
--- NOTE | 2019-08-24 13:34 | HMH.SLMBS2 ---
Speech & Language Evaluation Speech/Language Mod Barium Swallow Start: 08/24/19 12:59 Freq: once Status: Complete Protocol: Document 08/24/19 12:59 LIZETT (Rec: 08/24/19 13:08 LIZETT [id number]) [facility] [place] Recommendations Diet Dietary Recommendations Pureed,Pudding Liquids Comment Pleasure feeds due to high risk of aspiration. Treatment/Strategies Strategy/Precaution Recommend Sitting Upright (90 deg) Referrals/Other Recommended Referrals Alternate Feeding Method Other Recommendations Recommended pleasure feeding with monitor. Aspiration risk is high due to mistiming of swallow, delayed oral transit time and residue in pharyngeal cavity; Mod Barium Swallow Impressions Summary and Impressions Oral Phase Impression Moderate Impairment Oral Phase Summary Decreased oral motor movement and strength, dysarthria, no teeth, uncontrollable lingual movements similar to tardive dyskenesis. Pharyngeal Phase Impression Moderate Impairment Pharyngeal Phase Summary delayed swallow reflex (15 sec +); residue; Speech/Language MBS Assessment/Goals/Plan Assessment Date of Evaluation: 08/24/19 Evaluation Type Initial Certification Assessment/Problems dysphagia Does Patient Qualify for Service Yes Qualify/Failure Comment Patient aspirated on HTL; pharyngeal residue and delayed swallow reflex make aspiration risk high for PTL and puree without supervision; Recommendations PHYSICIAN CERTIFICATION: The specified therapy services are required, authorized, and reviewed every 30 days. Diet Recommendations Dysphagia Pureed Liquid Type Recommendations Pudding Consistency SL Swallow Guidelines High aspiration risk Dysphagia Swallow Precautions/Strategies Sitting Upright (90 deg) Plan Pt/Guardian verbally ack understanding Yes of dx/prognosis/goals Pt/Guardian verbally ack understanding Yes of/consent to tx prog G -code Required Yes G-CODES ST Current Status [id number] ST Current Status Modifier CK-At least 40% but less than 60% impaired, limited or restricted ST Goal Status [id number] ST Goal Status Modifier CK-At least 40% but less than 60% impaired, limited or restricted Education
== END ==
PROVIDERS: PCP Emergency Medicine; Visit Provider Emergency Medicine
DX: R13.10 Dysphagia, unspecified (principal)
CPT/HCPCS: 70371; 92611

== ENCOUNTER 2019-09-02 10:40 | Outpatient (CLI) | payer MEDICARE, MEDICAID, SELFPAY ==
[2019-09-02] VITALS (7 sets, daily range): BP systolic 121–143; BP diastolic 65–79; PULSE 63–68; RESP 18–20; BMI 20.1
[2019-09-02 11:09] LABS: Basophils # 0.1 K/mm3 (0-0.2); Basophils % 1.7 % (0.1-2.0); Eosinophils % 0.6 % (0.1-12.0); Hematocrit 36.1 % (37.0-47.0); Hemoglobin 10.7 g/dL (12.2-16.2); Lymphocytes # 1.2 K/mm3 (0.7-4.5); Lymphocytes % 21.1 % (10-50); Mean Corpuscular HGB Conc 29.6 g/dL (31.8-35.4); Mean Corpuscular Hemoglobin 27.1 pg (27.0-31.2); Mean Corpuscular Volume 91.5 fl (81-99); Mean Platelet Volume 8.4 fl (7.4-10.4); Monocytes # 0.2 K/mm3 (0.1-1.0); Monocytes % 4.3 % (1.7-9.3); Neutrophils % 72.3 % (37.0-80.0); Platelet Count 353 K/mm3 (142-424); Red Blood Count 3.94 M/mm3 (4.20-5.40); Red Cell Distribution Width 16.5 % (11.5-17.5); White Blood Count 5.6 K/mm3 (4.8-10.8)
[2019-09-02 11:34] LABS: Alanine Aminotransferase 38 U/L (12-78); Albumin Level 3.4 gm/dL (3.4-5.0); Albumin/Globulin Ratio 0.7 (1.1-1.8); Alkaline Phosphatase 273 U/L (46-116); Aspartate Amino Transferase 31 U/L (15-37); Bilirubin,Total 0.6 mg/dL (0.2-1.0); Blood Urea Nitrogen 16 mg/dL (7-18); Calcium 9.5 mg/dL (8.5-10.1); Carbon Dioxide 30 mmol/L (21.0-32.0); Chloride 106 mmol/L (98-107); Creatinine Clearance Estimated 38 mL/min (50-200); Creatinine,Serum 0.83 mg/dL (0.55-1.02); Estimated Glomerular Filt Rate 67 ml/min (>60); GFR (African American) 81 ML/MIN (>60); Glucose 96 mg/dL (74-106); Sodium 141 mmol/L (136-145); Total Protein,Serum 8.4 gm/dL (6.4-8.2)
== END 2019-09-02 14:30 | disposition home or self-care (01) ==
PROVIDERS: Visit Provider Internal Medicine Medical Oncology
DX: C50.012 Malignant neoplasm of nipple and areola, left female breast (principal)
CPT/HCPCS: 80053; 85025; 96413; 96415; J9355

== ENCOUNTER 2019-09-21 09:25 | Outpatient (CLI) | payer MEDICARE, MEDICAID, SELFPAY ==
[2019-09-21] VITALS (8 sets, daily range): BP systolic 118–127; BP diastolic 59–66; PULSE 63–67; RESP 16–18; TEMP 36.6–36.8; O2SAT 91; BMI 19.5
[2019-09-21 10:04] LABS: Basophils % 0.5 % (0.1-2.0); Eosinophils % 0.2 % (0.1-12.0); Hematocrit 37.9 % (37.0-47.0); Hemoglobin 11.5 g/dL (12.2-16.2); Lymphocytes # 0.8 K/mm3 (0.7-4.5); Lymphocytes % 16.4 % (10-50); Mean Corpuscular HGB Conc 30.2 g/dL (31.8-35.4); Mean Corpuscular Hemoglobin 27.3 pg (27.0-31.2); Mean Corpuscular Volume 90.3 fl (81-99); Mean Platelet Volume 8.6 fl (7.4-10.4); Monocytes # 0.3 K/mm3 (0.1-1.0); Monocytes % 5.9 % (1.7-9.3); Neutrophils # 3.8 K/mm3 (1.8-7.8); Neutrophils % 76.9 % (37.0-80.0); Platelet Count 222 K/mm3 (142-424); Red Cell Distribution Width 17.5 % (11.5-17.5)
== END 2019-09-21 12:55 | disposition home or self-care (01) ==
LOC: INF 09:34
PROVIDERS: Visit Provider Internal Medicine Medical Oncology
DX: Z51.11 Encounter for antineoplastic chemotherapy (principal); C50.912 Malignant neoplasm of unspecified site of left female breast
CPT/HCPCS: 85025; 96413; 96415; J9355

== ENCOUNTER 2019-10-14 08:17 | Outpatient (CLI) | payer MEDICARE, MEDICAID, SELFPAY ==
[2019-10-14] VITALS (7 sets, daily range): BP systolic 135–169; BP diastolic 62–72; PULSE 61–71; RESP 18; TEMP 36.9–37
[2019-10-14 08:34] LABS: Eosinophils % 0.5 % (0.1-12.0); Hematocrit 37.1 % (37.0-47.0); Hemoglobin 10.9 g/dL (12.2-16.2); Lymphocytes # 1.2 K/mm3 (0.7-4.5); Lymphocytes % 29.7 % (10-50); Mean Corpuscular HGB Conc 29.3 g/dL (31.8-35.4); Mean Corpuscular Hemoglobin 25.5 pg (27.0-31.2); Mean Corpuscular Volume 86.9 fl (81-99); Mean Platelet Volume 8.7 fl (7.4-10.4); Monocytes # 0.3 K/mm3 (0.1-1.0); Monocytes % 6.9 % (1.7-9.3); Neutrophils # 2.4 K/mm3 (1.8-7.8); Neutrophils % 61.9 % (37.0-80.0); Platelet Count 280 K/mm3 (142-424); Red Blood Count 4.27 M/mm3 (4.20-5.40); Red Cell Distribution Width 17.8 % (11.5-17.5); White Blood Count 3.9 K/mm3 (4.8-10.8)
[2019-10-14 08:39] LABS: Anion Gap 11.6 mEq/L (5-15); Blood Urea Nitrogen 9 mg/dL (7-18); Calcium 8.7 mg/dL (8.5-10.1); Carbon Dioxide 30 mmol/L (21.0-32.0); Chloride 105 mmol/L (98-107); Creatinine,Serum 0.93 mg/dL (0.55-1.02); Estimated Glomerular Filt Rate 59 ml/min (>60); GFR (African American) 71 ML/MIN (>60); Glucose 82 mg/dL (74-106); Potassium 3.6 mmoL/L (3.5-5.1); Sodium 143 mmol/L (136-145)
--- NOTE | 2019-10-14 12:20 | PC.NURSE ---
1220-called vascular lab to let them know that pt was finished with chemo and ready for her left lower extremity ultrasound.
--- NOTE | 2019-10-14 12:42 | CA_ITS ---
APPROVED REPORT Left Lower Extremity Venous Study for DVT. Deputy Commonwealth'S Attorney: Julia Ford RVT Indications Lower Extremity Edema: Left Pt has breast cancer and is receiving chemo Risk Factors Malignancy Vein Imaging CFV (L): compressive, spontaneous, phasic, augmentation FEM (L): compressive, spontaneous, phasic, augmentation POP (L): compressive, spontaneous, phasic, augmentation PTV (L): Compressible GSV (L): Compressible Peroneals (L):Compressible GAS (L): Compressible Findings Study suggests no evidence of DVT left lower extremity. Study suggests no evidence of SVT left lower extremity. Conclusion No evidence of DVT or superficial thrombophlebitis in the veins scanned of the left lower extremity. Electronically signed by : Daryl Dodge MD 10/14/2019 15:39:32
--- NOTE | 2019-10-14 12:50 | PC.NURSE ---
1250-vehicle modification technician here to get patient for ultrasound.
--- NOTE | 2019-10-14 13:10 | PC.NURSE ---
1310-pt back from vascular lab;called and notified [facility] that patient was ready to be picked u.
== END 2019-10-14 13:25 | disposition home or self-care (01) ==
LOC: INF 08:18
PROVIDERS: Surgery; Visit Provider Internal Medicine Medical Oncology
DX: C50.912 Malignant neoplasm of unspecified site of left female breast; Z51.11 Encounter for antineoplastic chemotherapy; M79.662 Pain in left lower leg
CPT/HCPCS: 36415; 80048; 85025; 93971; 96365; 96413; 96415; J9355

== ENCOUNTER 2019-11-16 10:15 | Outpatient (CLI) | payer MEDICARE, MEDICAID, SELFPAY ==
[2019-11-16] VITALS (8 sets, daily range): BP systolic 112–135; BP diastolic 62–66; PULSE 61–69; RESP 18; O2SAT 92; BMI 19.5
[2019-11-16 10:30] LABS: Basophils % 0.7 % (0.1-2.0); Eosinophils % 0.3 % (0.1-12.0); Hematocrit 43.6 % (37.0-47.0); Hemoglobin 12.9 g/dL (12.2-16.2); Lymphocytes # 1.2 K/mm3 (0.7-4.5); Lymphocytes % 25.5 % (10-50); Mean Corpuscular HGB Conc 29.6 g/dL (31.8-35.4); Mean Corpuscular Hemoglobin 25.2 pg (27.0-31.2); Mean Platelet Volume 8.9 fl (7.4-10.4); Monocytes # 0.3 K/mm3 (0.1-1.0); Monocytes % 7.3 % (1.7-9.3); Neutrophils # 3.1 K/mm3 (1.8-7.8); Neutrophils % 66.1 % (37.0-80.0); Platelet Count 244 K/mm3 (142-424); Red Blood Count 5.13 M/mm3 (4.20-5.40); Red Cell Distribution Width 17.4 % (11.5-17.5); White Blood Count 4.7 K/mm3 (4.8-10.8)
[2019-11-16 10:43] LABS: Alanine Aminotransferase 6 U/L (12-78); Albumin Level 3.4 gm/dL (3.4-5.0); Albumin/Globulin Ratio 0.8 (1.1-1.8); Alkaline Phosphatase 152 U/L (46-116); Aspartate Amino Transferase 8 U/L (15-37); Bilirubin,Total 0.3 mg/dL (0.2-1.0); Blood Urea Nitrogen 12 mg/dL (7-18); Calcium 9.2 mg/dL (8.5-10.1); Carbon Dioxide 31 mmol/L (21.0-32.0); Chloride 103 mmol/L (98-107); Creatinine Clearance Estimated 35 mL/min (50-200); Estimated Glomerular Filt Rate 48 ml/min (>60); GFR (African American) 59 ML/MIN (>60); Globulin 4.2 gm/dl (1.3-3.2); Glucose 84 mg/dL (74-106); Sodium 139 mmol/L (136-145); Total Protein,Serum 7.6 gm/dL (6.4-8.2)
== END 2019-11-16 13:23 | disposition home or self-care (01) ==
LOC: INF 10:15
PROVIDERS: Visit Provider Internal Medicine Medical Oncology
DX: Z51.11 Encounter for antineoplastic chemotherapy (principal); C50.912 Malignant neoplasm of unspecified site of left female breast
CPT/HCPCS: 80053; 85025; 96413; 96415; J9355

== ENCOUNTER → 2019-11-28 09:25 | Outpatient (CLI) | payer MEDICARE, MEDICAID, SELFPAY ==
--- NOTE | 2019-11-28 09:29 | CA_ITS ---
APPROVED REPORT EXAM: Comprehensive 2D, Doppler, and color-flow Echocardiogram Automotive General Sales Manager: Julia Ford RVT Ht: 5 ft 0 in Wt: 113lbs BSA: 1.46 BP: 121/50 mmHg Indications: Breast cancer,COPD,HTN,HLD,Smoker,EF check 2D Dimensions LVOT 1.87 cm (M/F) 1.5-2.5 M-Mode Dimensions RVDd 1.56 cm (0.9-2.6) LVDd 4.00 cm (3.5-5.7) LVDs 2.60 cm (3.5-5.7) IVSd 1.13 cm (0.6-1.1) PWd 0.89 cm (0.6-1.1) EF (Teich) 64.90% FS 35.00% EDV (Teich) 70.00 mL ESV (Teich) 24.60 mL LV Diastology E/A Ratio 0.80 Mitral Valve MV A Velocity 73.00 (40-130 cm/s) Left Ventricle Left atrium is mildly enlarged, left ventricle is normal size, mild concentric left ventricular hypertrophy, visually estimated ejection fraction 55% with no regional wall motion abnormality, grade 1 diastolic dysfunction seen without tissue Doppler evidence of raise left atrial pressure. Right Ventricle Right atrium and right ventricular mildly enlarged with normal contractility. Aortic Valve Aortic valve is minimally thickened and fibrosed, there is no aortic stenosis aortic insufficiency. Mitral Valve Mitral valve is grossly normal, there is no mitral stenosis, there is mild mitral regurgitation. Tricuspid Valve Tricuspid valve grossly normal, there is mild tricuspid regurgitation, tricuspid condition Doppler study is inadequate for calculation of the right ventricular systolic pressure. Pulmonic Valve Pulmonic valve is poorly visualized. Great Vessels Aortic root is normal size. Pericardium No significant pericardial effusion noted. Conclusion 1. Biatrial enlargement, normal left ventricular size, mild concentric left ventricular hypertrophy, visually estimated ejection fraction 55% with no regional wall motion abnormality, grade 1 diastolic dysfunction seen without tissue Doppler evidence of raise left atrial pressure. 2. Mildly enlarged right ventricle with normal contractility. 3. Mild mitral and tricuspid regurgitation. 4. No significant pericardial effusion noted. Electronically signed by : Anuj Kennedy, 11/28/2019 20:38:37
== END ==
PROVIDERS: PCP Emergency Medicine; Visit Provider Internal Medicine Medical Oncology
DX: C50.912 Malignant neoplasm of unspecified site of left female breast (principal); Z79.899 Other long term (current) drug therapy
CPT/HCPCS: 93306

== ENCOUNTER 2019-12-08 09:31 | Outpatient (CLI) | payer MEDICARE, MEDICAID, SELFPAY ==
[2019-12-08] VITALS (7 sets, daily range): BP systolic 141–164; BP diastolic 73–86; PULSE 62–78; RESP 18; TEMP 36.6–37.2; O2SAT 91; BMI 19.5
[2019-12-08 09:45] LABS: Basophils % 0.8 % (0.1-2.0); Eosinophils % 0.3 % (0.1-12.0); Hematocrit 42.2 % (37.0-47.0); Hemoglobin 12.8 g/dL (12.2-16.2); Lymphocytes # 1.1 K/mm3 (0.7-4.5); Lymphocytes % 29.9 % (10-50); Mean Corpuscular HGB Conc 30.3 g/dL (31.8-35.4); Mean Corpuscular Hemoglobin 25.7 pg (27.0-31.2); Mean Corpuscular Volume 84.7 fl (81-99); Mean Platelet Volume 8.2 fl (7.4-10.4); Monocytes # 0.2 K/mm3 (0.1-1.0); Monocytes % 6.6 % (1.7-9.3); Neutrophils # 2.2 K/mm3 (1.8-7.8); Neutrophils % 62.5 % (37.0-80.0); Platelet Count 255 K/mm3 (142-424); Red Blood Count 4.98 M/mm3 (4.20-5.40); Red Cell Distribution Width 17.8 % (11.5-17.5); White Blood Count 3.6 K/mm3 (4.8-10.8)
[2019-12-08 10:13] LABS: Alanine Aminotransferase 10 U/L (12-78); Albumin Level 3.4 gm/dL (3.4-5.0); Albumin/Globulin Ratio 0.9 (1.1-1.8); Alkaline Phosphatase 151 U/L (46-116); Anion Gap 10.6 mEq/L (5-15); Aspartate Amino Transferase 15 U/L (15-37); Bilirubin,Total 0.4 mg/dL (0.2-1.0); Blood Urea Nitrogen 5 mg/dL (7-18); Calcium 8.9 mg/dL (8.5-10.1); Carbon Dioxide 31 mmol/L (21.0-32.0); Chloride 107 mmol/L (98-107); Creatinine Clearance Estimated 38 mL/min (50-200); Creatinine,Serum 0.94 mg/dL (0.55-1.02); Estimated Glomerular Filt Rate 58 ml/min (>60); GFR (African American) 70 ML/MIN (>60); Globulin 3.9 gm/dl (1.3-3.2); Glucose 93 mg/dL (74-106); Potassium 3.6 mmoL/L (3.5-5.1); Sodium 145 mmol/L (136-145); Total Protein,Serum 7.3 gm/dL (6.4-8.2)
== END 2019-12-08 14:00 | disposition home or self-care (01) ==
LOC: INF 09:31
PROVIDERS: Visit Provider Internal Medicine Medical Oncology
DX: C50.912 Malignant neoplasm of unspecified site of left female breast (principal); Z51.11 Encounter for antineoplastic chemotherapy
CPT/HCPCS: 80053; 85025; 96413; 96415; J9355

== ENCOUNTER 2019-12-29 10:00 | Outpatient (CLI) | payer MEDICARE, MEDICAID, SELFPAY ==
[2019-12-29 10:08] VITALS: BMI 19.5
[2019-12-29 10:17] LABS: Basophils % 0.6 % (0.1-2.0); Eosinophils % 0.1 % (0.1-12.0); Hemoglobin 12.4 g/dL (12.2-16.2); Lymphocytes # 0.9 K/mm3 (0.7-4.5); Lymphocytes % 26.5 % (10-50); Mean Corpuscular HGB Conc 29.6 g/dL (31.8-35.4); Mean Corpuscular Hemoglobin 25.9 pg (27.0-31.2); Mean Corpuscular Volume 87.5 fl (81-99); Mean Platelet Volume 8.4 fl (7.4-10.4); Monocytes # 0.2 K/mm3 (0.1-1.0); Monocytes % 5.8 % (1.7-9.3); Neutrophils # 2.3 K/mm3 (1.8-7.8); Platelet Count 281 K/mm3 (142-424); Red Cell Distribution Width 17.8 % (11.5-17.5); White Blood Count 3.5 K/mm3 (4.8-10.8)
[2019-12-29 10:26] LABS: Chloride 103 mmol/L (98-107); Potassium 4.5 mmoL/L (3.5-5.1); Sodium 142 mmol/L (136-145)
[2019-12-29 10:28] LABS: Blood Urea Nitrogen 8 mg/dl (7-17); Creatinine Clearance Estimated 38 mL/min (50-200); Estimated Glomerular Filt Rate 61 ml/min (>60); GFR (African American) 74 ML/MIN (>60)
[2019-12-29 10:29] LABS: Alanine Aminotransferase 10 U/L (12-78); Albumin Level 3.9 g/dl (3.5-5.0); Albumin/Globulin Ratio 1.1 (1.1-1.8); Alkaline Phosphatase 129 U/L (38-126); Anion Gap 12.5 mEq/L (5-15); Aspartate Amino Transferase 20 U/L (14-36); Bilirubin,Total 0.4 mg/dl (0.2-1.3); Calcium 9.4 mg/dl (8.4-10.2); Carbon Dioxide 31 mmol/L (22.0-30.0); Globulin 3.5 g/dL (1.3-3.2); Glucose 107 mg/dl (74-100); Total Protein,Serum 7.4 g/dl (6.3-8.2)
--- NOTE | 2019-12-29 11:45 | PC.NURSE ---
1115-SPOKE WITH DE PETERS RN FROM DR UNDERWOOD'S OFFICE. STATED THAT PT WOULD NOT BE RETURNING FOR CHEMO INFUSION. STATED SHE WAS GOING TO THE ED DUE TO LOW O2 SATS.
== END 2019-12-29 10:15 | disposition home or self-care (01) ==
LOC: INF 10:03
PROVIDERS: Visit Provider Internal Medicine Medical Oncology
DX: C50.919 Malignant neoplasm of unspecified site of unspecified female breast (principal)
CPT/HCPCS: 80053; 85025

== ENCOUNTER 2020-01-12 13:20 | Outpatient (CLI) | payer MEDICARE, MEDICAID, SELFPAY ==
[2020-01-12] VITALS (8 sets, daily range): BP systolic 124–161; BP diastolic 61–76; PULSE 66–79; RESP 20; TEMP 36.7–37; O2SAT 100; BMI 19.5
[2020-01-12 13:36] LABS: Basophils % 0.8 % (0.1-2.0); Eosinophils % 0.4 % (0.1-12.0); Hemoglobin 12.4 g/dL (12.2-16.2); Lymphocytes # 1.1 K/mm3 (0.7-4.5); Lymphocytes % 37.2 % (10-50); Mean Corpuscular HGB Conc 30.2 g/dL (31.8-35.4); Mean Corpuscular Hemoglobin 25.9 pg (27.0-31.2); Mean Corpuscular Volume 85.8 fl (81-99); Mean Platelet Volume 7.5 fl (7.4-10.4); Monocytes # 0.2 K/mm3 (0.1-1.0); Monocytes % 6.5 % (1.7-9.3); Neutrophils # 1.6 K/mm3 (1.8-7.8); Neutrophils % 55.2 % (37.0-80.0); Platelet Count 249 K/mm3 (142-424); Red Blood Count 4.78 M/mm3 (4.20-5.40); Red Cell Distribution Width 16.6 % (11.5-17.5)
[2020-01-12 13:44] LABS: Chloride 104 mmol/L (98-107); Potassium 4.2 mmoL/L (3.5-5.1); Sodium 142 mmol/L (136-145)
[2020-01-12 13:46] LABS: Blood Urea Nitrogen 7 mg/dl (7-17); Creatinine Clearance Estimated 38 mL/min (50-200); Estimated Glomerular Filt Rate 70 ml/min (>60); GFR (African American) 85 ML/MIN (>60)
[2020-01-12 13:47] LABS: Alanine Aminotransferase 8 U/L (12-78); Albumin/Globulin Ratio 1.1 (1.1-1.8); Alkaline Phosphatase 134 U/L (38-126); Anion Gap 12.2 mEq/L (5-15); Aspartate Amino Transferase 24 U/L (14-36); Bilirubin,Total 0.3 mg/dl (0.2-1.3); Calcium 9.6 mg/dl (8.4-10.2); Carbon Dioxide 30 mmol/L (22.0-30.0); Globulin 3.7 g/dL (1.3-3.2); Glucose 87 mg/dl (74-100); Total Protein,Serum 7.7 g/dl (6.3-8.2)
== END 2020-01-12 16:20 | disposition home or self-care (01) ==
LOC: INF 13:24
PROVIDERS: Visit Provider Internal Medicine Medical Oncology
DX: Z51.11 Encounter for antineoplastic chemotherapy (principal); C50.912 Malignant neoplasm of unspecified site of left female breast; Z17.0 Estrogen receptor positive status [ER+]
CPT/HCPCS: 80053; 85025; 96413; 96415; J9355

== ENCOUNTER 2020-02-09 09:11 | Outpatient (CLI) | payer MEDICARE, MEDICAID, SELFPAY ==
[2020-02-09] VITALS (7 sets, daily range): BP systolic 117–129; BP diastolic 63–70; PULSE 62–69; RESP 18; TEMP 36.3; BMI 19.5
[2020-02-09 09:31] LABS: Chloride 103 mmol/L (98-107); Potassium 3.7 mmoL/L (3.5-5.1); Sodium 138 mmol/L (136-145)
[2020-02-09 09:34] LABS: Alanine Aminotransferase 10 U/L (12-78); Albumin Level 3.7 g/dl (3.5-5.0); Alkaline Phosphatase 129 U/L (38-126); Anion Gap 11.7 mEq/L (5-15); Aspartate Amino Transferase 22 U/L (14-36); Bilirubin,Total 0.3 mg/dl (0.2-1.3); Blood Urea Nitrogen 7 mg/dl (7-17); Calcium 9.6 mg/dl (8.4-10.2); Carbon Dioxide 27 mmol/L (22.0-30.0); Creatinine Clearance Estimated 38 mL/min (50-200); Estimated Glomerular Filt Rate 54 ml/min (>60); GFR (African American) 65 ML/MIN (>60); Globulin 3.6 g/dL (1.3-3.2); Glucose 111 mg/dl (74-100); Total Protein,Serum 7.3 g/dl (6.3-8.2)
[2020-02-09 09:35] LABS: Basophils % 1.1 % (0.1-2.0); Eosinophils % 0.2 % (0.1-12.0); Hematocrit 43.7 % (37.0-47.0); Hemoglobin 13.2 g/dL (12.2-16.2); Lymphocytes % 31.9 % (10-50); Mean Corpuscular HGB Conc 30.1 g/dL (31.8-35.4); Mean Corpuscular Hemoglobin 26.1 pg (27.0-31.2); Mean Corpuscular Volume 86.7 fl (81-99); Monocytes # 0.2 K/mm3 (0.1-1.0); Monocytes % 7.3 % (1.7-9.3); Neutrophils # 1.8 K/mm3 (1.8-7.8); Neutrophils % 59.4 % (37.0-80.0); Platelet Count 274 K/mm3 (142-424); Red Blood Count 5.03 M/mm3 (4.20-5.40); Red Cell Distribution Width 15.6 % (11.5-17.5)
== END 2020-02-09 13:00 | disposition home or self-care (01) ==
LOC: INF 09:11
PROVIDERS: Visit Provider Internal Medicine Medical Oncology
DX: Z51.11 Encounter for antineoplastic chemotherapy (principal); C50.912 Malignant neoplasm of unspecified site of left female breast
CPT/HCPCS: 80053; 85025; 96413; 96415; J9355

== ENCOUNTER 2020-03-02 09:50 | Outpatient (CLI) | payer MEDICARE, MEDICAID, SELFPAY ==
[2020-03-02] VITALS (7 sets, daily range): BP systolic 118–148; BP diastolic 61–83; PULSE 70–85; RESP 18; TEMP 36.5; BMI 19.5
[2020-03-02 10:22] LABS: Basophils % 1.3 % (0.1-2.0); Eosinophils % 0.4 % (0.1-12.0); Hematocrit 45.1 % (37.0-47.0); Hemoglobin 13.8 g/dL (12.2-16.2); Lymphocytes # 1.1 K/mm3 (0.7-4.5); Lymphocytes % 33.5 % (10-50); Mean Corpuscular HGB Conc 30.6 g/dL (31.8-35.4); Mean Corpuscular Hemoglobin 26.9 pg (27.0-31.2); Mean Corpuscular Volume 87.9 fl (81-99); Mean Platelet Volume 7.7 fl (7.4-10.4); Monocytes # 0.2 K/mm3 (0.1-1.0); Monocytes % 5.8 % (1.7-9.3); Platelet Count 277 K/mm3 (142-424); Red Blood Count 5.13 M/mm3 (4.20-5.40); White Blood Count 3.3 K/mm3 (4.8-10.8)
[2020-03-02 10:30] LABS: Alanine Aminotransferase 11 U/L (12-78); Albumin Level 4.1 g/dl (3.5-5.0); Albumin/Globulin Ratio 1.2 (1.1-1.8); Alkaline Phosphatase 144 U/L (38-126); Anion Gap 12.2 mEq/L (5-15); Aspartate Amino Transferase 23 U/L (14-36); Bilirubin,Total 0.3 mg/dl (0.2-1.3); Blood Urea Nitrogen 9 mg/dl (7-17); Calcium 9.7 mg/dl (8.4-10.2); Carbon Dioxide 26 mmol/L (22.0-30.0); Chloride 104 mmol/L (98-107); Creatinine Clearance Estimated 38 mL/min (50-200); Estimated Glomerular Filt Rate 61 ml/min (>60); GFR (African American) 74 ML/MIN (>60); Globulin 3.5 g/dL (1.3-3.2); Glucose 93 mg/dl (74-100); Potassium 4.2 mmoL/L (3.5-5.1); Sodium 138 mmol/L (136-145); Total Protein,Serum 7.6 g/dl (6.3-8.2)
== END 2020-03-02 13:15 | disposition home or self-care (01) ==
LOC: INF 10:02
PROVIDERS: Visit Provider Internal Medicine Medical Oncology
DX: Z51.11 Encounter for antineoplastic chemotherapy (principal); C50.912 Malignant neoplasm of unspecified site of left female breast
CPT/HCPCS: 80053; 85025; 96413; 96415; J9355

== ENCOUNTER 2020-03-22 10:53 | Outpatient (CLI) | payer MEDICARE, MEDICAID, SELFPAY ==
[2020-03-22 10:54] VITALS: BMI 23.4
[2020-03-22 11:10] LABS: Basophils # 0.1 K/mm3 (0-0.2); Basophils % 1.4 % (0.1-2.0); Eosinophils % 0.4 % (0.1-12.0); Hematocrit 45.4 % (37.0-47.0); Hemoglobin 13.7 g/dL (12.2-16.2); Lymphocytes # 1.2 K/mm3 (0.7-4.5); Lymphocytes % 31.4 % (10-50); Mean Corpuscular HGB Conc 30.3 g/dL (31.8-35.4); Mean Corpuscular Hemoglobin 27.1 pg (27.0-31.2); Mean Corpuscular Volume 89.5 fl (81-99); Mean Platelet Volume 7.7 fl (7.4-10.4); Monocytes # 0.2 K/mm3 (0.1-1.0); Monocytes % 6.3 % (1.7-9.3); Neutrophils # 2.2 K/mm3 (1.8-7.8); Neutrophils % 60.5 % (37.0-80.0); Platelet Count 264 K/mm3 (142-424); Red Blood Count 5.07 M/mm3 (4.20-5.40); Red Cell Distribution Width 14.8 % (11.5-17.5); White Blood Count 3.7 K/mm3 (4.8-10.8)
[2020-03-22 11:15] LABS: Alanine Aminotransferase 11 U/L (12-78); Albumin Level 4.4 g/dl (3.5-5.0); Albumin/Globulin Ratio 1.2 (1.1-1.8); Alkaline Phosphatase 197 U/L (38-126); Anion Gap 7.9 mEq/L (5-15); Aspartate Amino Transferase 26 U/L (14-36); Bilirubin,Total 0.4 mg/dl (0.2-1.3); Blood Urea Nitrogen 9 mg/dl (7-17); Calcium 9.9 mg/dl (8.4-10.2); Carbon Dioxide 30 mmol/L (22.0-30.0); Chloride 103 mmol/L (98-107); Creatinine Clearance Estimated 42 mL/min (50-200); Estimated Glomerular Filt Rate 61 ml/min (>60); GFR (African American) 74 ML/MIN (>60); Globulin 3.7 g/dL (1.3-3.2); Glucose 87 mg/dl (74-100); Potassium 4.9 mmoL/L (3.5-5.1); Sodium 136 mmol/L (136-145); Total Protein,Serum 8.1 g/dl (6.3-8.2)
[2020-03-22 12:50] VITALS: BP 136/74; PULSE 70; RESP 18; TEMP 36.3
[2020-03-22 13:05] VITALS: BP 135/73; PULSE 66; RESP 18
[2020-03-22 13:20] VITALS: BP 133/67; PULSE 69; RESP 18
[2020-03-22 13:35] VITALS: BP 110/62; PULSE 68; RESP 18
[2020-03-22 13:50] VITALS: BP 115/67; PULSE 67; RESP 18
== END 2020-03-22 14:10 | disposition home or self-care (01) ==
LOC: INF 10:53
PROVIDERS: Visit Provider Internal Medicine Medical Oncology
DX: C50.912 Malignant neoplasm of unspecified site of left female breast (principal)
CPT/HCPCS: 80053; 85025; 96413; J9355

== ENCOUNTER 2020-04-12 10:25 | Outpatient (CLI) | payer MEDICARE, MEDICAID, SELFPAY ==
[2020-04-12 10:37] VITALS: BMI 21.2
[2020-04-12 11:45] VITALS: BP 137/70; PULSE 71; RESP 20; TEMP 36.2; O2SAT 92
[2020-04-12 12:00] VITALS: BP 138/72; PULSE 70; RESP 18
[2020-04-12 12:15] VITALS: BP 138/72; PULSE 70; RESP 18
[2020-04-12 12:30] VITALS: BP 134/76; PULSE 69; RESP 18
[2020-04-12 12:45] VITALS: BP 135/73; PULSE 68; RESP 18
[2020-04-12 12:55] VITALS: BP 140/73; PULSE 69; RESP 18
== END 2020-04-12 13:25 | disposition home or self-care (01) ==
LOC: INF 10:34
PROVIDERS: Visit Provider Internal Medicine Medical Oncology
DX: Z51.11 Encounter for antineoplastic chemotherapy (principal); C50.912 Malignant neoplasm of unspecified site of left female breast
CPT/HCPCS: 96413; J9355

== ENCOUNTER → 2020-04-18 10:39 | Outpatient (CLI) | payer MEDICARE, MEDICAID, SELFPAY ==
--- NOTE | 2020-04-18 10:47 | FL_ITS ---
PROCEDURE: FL BARIUM SWALLOW MODIFIED CLINICAL INDICATION: DETERMINE SAFE DIET COMPARISON: No exams were available for comparison TECHNIQUE: Patient administered varying consistencies of barium contrast, while viewed in lateral position under real-time fluoroscopy with cine recording. FLUOROSCOPY TIME:2 minutes and 46 seconds The study was performed in conjunction with speech pathologist. Please see that report & recommendations. FINDINGS: Patient was given varying consistencies of barium. There is moderate spillage and delay in initiation of the swallowing reflex. There is mild residual. Prominent anterior osteophytes are present at C4-C5 consistent with DISH no penetration or tracheal aspiration there is poor bolus formation with the mechanical soft. IMPRESSION: Moderate delay with spillage into the vallecula a. mild residual. No aspiration or penetration Please see speech pathologist report and recommendations. Dictated by: Daryl Dodge MD 04/19/2020 18:11 Electronically signed by Daryl Dodge MD in [place] 04/19/2020 18:11
== END ==
PROVIDERS: PCP Emergency Medicine; Visit Provider Emergency Medicine
DX: R13.10 Dysphagia, unspecified (principal)
CPT/HCPCS: 70371

== ENCOUNTER → 2020-05-10 12:07 | Outpatient (CLI) | payer MEDICARE, MEDICAID, SELFPAY ==
[2020-05-10 12:13] VITALS: BMI 23.6
[2020-05-10 12:22] LABS: Basophils % 0.9 % (0.1-2.0); Eosinophils % 0.4 % (0.1-12.0); Hematocrit 43.6 % (37.0-47.0); Hemoglobin 14.3 g/dL (12.2-16.2); Lymphocytes # 1.2 K/mm3 (0.7-4.5); Lymphocytes % 28.6 % (10-50); Mean Corpuscular HGB Conc 32.9 g/dL (31.8-35.4); Mean Corpuscular Hemoglobin 28.8 pg (27.0-31.2); Mean Corpuscular Volume 87.6 fl (81-99); Mean Platelet Volume 7.6 fl (7.4-10.4); Monocytes # 0.3 K/mm3 (0.1-1.0); Monocytes % 5.9 % (1.7-9.3); Neutrophils # 2.7 K/mm3 (1.8-7.8); Neutrophils % 64.2 % (37.0-80.0); Platelet Count 254 K/mm3 (142-424); Red Blood Count 4.98 M/mm3 (4.20-5.40); Red Cell Distribution Width 15.2 % (11.5-17.5); White Blood Count 4.3 K/mm3 (4.8-10.8)
[2020-05-10 12:35] LABS: Chloride 108 mmol/L (98-107); Sodium 139 mmol/L (136-145)
[2020-05-10 12:36] LABS: Potassium 4.4 mmoL/L (3.5-5.1)
[2020-05-10 12:38] LABS: Alanine Aminotransferase 8 U/L (12-78); Anion Gap 11.4 mEq/L (5-15); Aspartate Amino Transferase 20 U/L (14-36); Blood Urea Nitrogen 7 mg/dl (7-17); Carbon Dioxide 24 mmol/L (22.0-30.0); Creatinine Clearance Estimated 42 mL/min (50-200); Estimated Glomerular Filt Rate 61 ml/min (>60); GFR (African American) 74 ML/MIN (>60)
[2020-05-10 12:39] LABS: Albumin/Globulin Ratio 1.2 (1.1-1.8); Alkaline Phosphatase 161 U/L (38-126); Bilirubin,Total 0.5 mg/dl (0.2-1.3); Calcium 9.5 mg/dl (8.4-10.2); Globulin 3.4 g/dL (1.3-3.2); Glucose 92 mg/dl (74-100); Total Protein,Serum 7.4 g/dl (6.3-8.2)
[2020-05-10 13:55] VITALS: BP 121/84; PULSE 62; RESP 18; O2SAT 93
[2020-05-10 14:20] VITALS: BP 130/62; PULSE 65; RESP 18; O2SAT 94
[2020-05-10 15:10] VITALS: BP 126/65; PULSE 64; RESP 18; O2SAT 93
== END ==
PROVIDERS: Visit Provider Internal Medicine Medical Oncology
DX: Z51.11 Encounter for antineoplastic chemotherapy (principal); C50.912 Malignant neoplasm of unspecified site of left female breast
CPT/HCPCS: 80053; 85025; 96413; J9355

== ENCOUNTER → 2020-05-22 07:11 | Outpatient (CLI) | payer MEDICARE, MEDICAID, SELFPAY ==
[2020-05-23 15:21] LABS: Covid-19 Nasal PCR Sendout Lex NOT DETECTED
== END ==
PROVIDERS: PCP Emergency Medicine; Visit Provider Emergency Medicine
DX: Z03.818 Encounter for observation for suspected exposure to other biological agents ruled out (principal)
CPT/HCPCS: U0004

== ENCOUNTER → 2020-06-14 17:06 | Outpatient (CLI) | payer MEDICARE, MEDICAID, SELFPAY ==
[2020-06-18 10:31] LABS: Levetiracetam (Keppra) 43.2 ug/mL (10.0-40.0)
== END ==
PROVIDERS: Visit Provider Emergency Medicine
DX: Z51.81 Encounter for therapeutic drug level monitoring (principal)
CPT/HCPCS: 80177

== ENCOUNTER → 2020-09-11 17:49 | Outpatient (CLI) | payer MEDICARE, MEDICAID, SELFPAY ==
[2020-09-11 18:29] LABS: Basophils % 0.6 % (0.1-2.0); Eosinophils % 0.2 % (0.1-12.0); Hematocrit 42.8 % (37.0-47.0); Lymphocytes # 1.2 K/mm3 (0.7-4.5); Lymphocytes % 30.1 % (10-50); Mean Corpuscular HGB Conc 30.4 g/dL (31.8-35.4); Mean Corpuscular Hemoglobin 28.6 pg (27.0-31.2); Mean Corpuscular Volume 93.9 fl (81-99); Mean Platelet Volume 8.9 fl (7.4-10.4); Monocytes # 0.3 K/mm3 (0.1-1.0); Monocytes % 6.7 % (1.7-9.3); Neutrophils # 2.6 K/mm3 (1.8-7.8); Neutrophils % 62.4 % (37.0-80.0); Platelet Count 242 K/mm3 (142-424); Red Blood Count 4.56 M/mm3 (4.20-5.40); Red Cell Distribution Width 14.7 % (11.5-17.5); White Blood Count 4.1 K/mm3 (4.8-10.8)
[2020-09-11 21:20] LABS: Anion Gap 10.4 mEq/L (5-15); Blood Urea Nitrogen 8 mg/dl (7-17); Carbon Dioxide 24 mmol/L (22.0-30.0); Chloride 111 mmol/L (98-107); Estimated Glomerular Filt Rate 81 ml/min (>60); GFR (African American) 98 ML/MIN (>60); Glucose 77 mg/dl (74-100); Potassium 4.4 mmoL/L (3.5-5.1); Sodium 141 mmol/L (136-145)
[2020-09-11 21:28] LABS: Coronavirus 19 IgG Antibody Negative (Negative); Coronavirus 19 IgM Antibody Negative (Negative)
[2020-09-15 08:52] LABS: Levetiracetam (Keppra) 29.6 ug/mL (10.0-40.0)
== END ==
PROVIDERS: Visit Provider Emergency Medicine
DX: Z03.818 Encounter for observation for suspected exposure to other biological agents ruled out (principal)
CPT/HCPCS: 80048; 80177; 85025; 86328

== ENCOUNTER → 2020-11-16 20:50 | Outpatient (CLI) | payer MEDICARE, MEDICAID, SELFPAY | PROVIDERS: PCP Nurse Practitioner Family; Visit Provider Nurse Practitioner Family | DX: U07.1 COVID-19 (principal) | CPT/HCPCS: U0003 ==

== ENCOUNTER → 2020-12-15 03:08 | Outpatient (CLI) | payer MEDICARE, MEDICAID, SELFPAY ==
[2020-12-18 15:38] LABS: Levetiracetam (Keppra) 45.5 ug/mL (10.0-40.0)
== END ==
PROVIDERS: PCP Emergency Medicine; Visit Provider Emergency Medicine
DX: Z51.81 Encounter for therapeutic drug level monitoring (principal)
CPT/HCPCS: 80177

== ENCOUNTER 2021-07-17 08:37 | Day surgery (SDC) | payer MEDICARE, MEDICAID, SELFPAY ==
[2021-07-17] VITALS (7 sets, daily range): BP systolic 123–136; BP diastolic 66–82; PULSE 65–86; RESP 15–18; TEMP 36.5–36.6; O2SAT 92–95; BMI 20.9
--- NOTE | 2021-07-17 09:40 | SUR.OPER ---
Dr Stevenson removed peg tube with some diffictuly. To obtain CT of neck in post-op. peg tube site dressed with xero form, 4x4, and large tegaderm. pt tolerated well.
--- NOTE | 2021-07-17 09:47 | HMH.SCOPE ---
- Procedure: Date: 07/17/21 Patient Date of :: 1945 Procedure Performed:: Esophagogastroduodenoscopy with retrieval of PEG tube Indications:: Patient is a 75-year-old female who is a [facility] resident who was referred for removal of gastrostomy tube. She has apparently had gastrostomy tube present for several years. It is no longer needed. She was seen in the office recently. She had a traction pull type PEG. Attempt was made in the office to remove the PEG tube. Despite significant traction this was unable to be pulled. Plan was made for retrieval with EGD. Performing Provider:: Edilberto Stevenson MD Referring Provider:: Raj Beauchamp MD Sedation:: MAC sedation Procedure:: Patient was taken to endoscopy procedure room. She was maintained in supine position. Adequate intravenous sedation was achieved with anesthesia titration of propofol. Olympus endoscope was inserted via the oropharynx. Stomach was cannulated and insufflated. PEG tube umbrella was identified in the antrum. This was grasped with a large snare. PEG tube was then cut at the level of the skin. The endoscope with the PEG tube was then withdrawn. However, upon reaching the cricopharyngeal region the PEG tube had difficulty being fully removed. The endoscope was reinserted and the PEG tube remnant was cinched up with a snare. It was then able to be withdrawn. After the remnant was withdrawn endoscope was reinserted. There was what appeared to be mucosal tear at the cricopharyngeal region. Endoscope was withdrawn. Findings:: PEG tube in antrum Recommendations:: Plan will be to obtain CT of the neck to rule out full-thickness injury to the cricopharyngeal esophagus. If none is noted she still should remain on clear liquid diet for at least 2 days. Complications:: None immediately apparent. See note above. Estimated blood obtained (mL): 4
--- NOTE | 2021-07-17 09:52 | CT_ITS ---
PROCEDURE: CT SOFT TISSUE NECK WO CON CLINICAL HISTORY: POST EGD PEG REMOVAL Pharyngeal abrasion COMPARISON: No exams were available for comparison TECHNIQUE: Oral Contrast: None IV Contrast: None Axial images obtained with sagittal and coronal reformats. All CT scans at the facility use one or more dose reduction, viz: automated exposure control, ma/kV adjustment per patient size (including targeted exams where dose is matched to indication, i.e. head), or iterative reconstruction technique. FINDINGS: There is no evidence of retropharyngeal subcutaneous emphysema. No abnormal fluid collection or mass. No adenopathy. The pharynx, epiglottis, and glottic region have an unremarkable appearance. 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 Upper thoracic images show centrilobular emphysema with some pulmonary fibrosis and mild atelectatic change versus infiltrate in the left upper lobe posteriorly incompletely imaged. 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 No sinus air-fluid level. IMPRESSION: No acute finding. Dictated by: Daryl Dodge MD 07/17/2021 10:34 Daryl Dodge MD in [place] 07/17/2021 10:34
--- NOTE | 2021-07-17 11:49 | P.PN_ITS ---
[facility] Anesthesia Checklist - Patient Identification Patient Identification: Arm Band, Verbal (Name & ) - Structural Data Admitted From: Long-term Nursing Facility Planned Operative Procedure/s: egd Consent for Planned Operative Procedure(s) Verified: Yes Verified Documents: History and Physical - NPO Status Verified Time NPO: 00:00 - Additional verifications Patient : No Anesthesia Reactions: No Hx Blood Transfusions: No Blood Transfusion Reaction: No Cephalosporin Allergy: No Previous Colonoscopy: No - Cardiovascular Assessment Heart Sounds: S1 & S2 Pulse Strength: Baseline Pulse Rhythm: Regular - Airway Assessment C-Spine Mobility Assessed: Yes TMJ Mobility Assessed: Yes Dentition: Edentulous - Neurological Assessment Level of Consciousness: Awake, Alert, Appropriate Hx Seizures: No Numbness or tingling in extremities: No - Anesthesia Plan Anesthesia Risk discussed: Yes Anesthesia Plan: Verified ASA Class: III Anesthesia Type: MAC [facility] History I have reviewed the patient's past medical history: Yes Medical History: Reports:: Anxiety, Chronic Obstructive Pulmonary Disease (COPD), Depression, Home Oxygen, Hyperlipidemia, Hypertension Denies:: Cancer, Diabetes Mellitus Type 1, Diabetes Mellitus Type 2, Internal Pacemaker, MRSA, Seizures *Have you ever received a pneumonia vaccine?: Yes *Have you received a flu vaccine this season?: Yes Other Medical History: Reports: Chemotherapy, Radiation Therapy, Other. Denies: Blood Transfusion Reaction Anesthesia experience/problems:: none Laterality Cases: Left: Mastectomy Other Surgeries: Yes: No Previous Surgery, Cancer Surgery, Colonoscopy, Other. No: Pacemaker Amputation: No Fractures: No - *Social History Last grade of school completed: 5th or 6th Smoking Status: Current every day smoker Tobacco Type: cigarettes # Packs/Day (cigarettes): 1 Alcohol Intake: never Alcohol Intake Frequency:: holidays/special occasions only Substance Use Type: denies use *Occupational Status:: disabled Housing: assisted living facility Household Members: other *Travel in the last 8 weeks: None - Psychiatric History Pschychiatric History:: Reports:: Anxiety, Depression, Schizophrenia Family Hx:: Unable to obtain
== END 2021-07-17 10:43 | disposition home or self-care (01) ==
LOC: OUTP 08:40
PROVIDERS: PCP Emergency Medicine; Visit Provider Surgery
PROC: 0DJ08ZZ Inspection of Upper Intestinal Tract, Via Natural or Artificial Opening Endoscopic (ICD-10-PCS; CPT 43235; principal; 2021-07-17 09:30)
DX: Z43.1 Encounter for attention to gastrostomy (principal); Z79.82 Long term (current) use of aspirin; Z79.899 Other long term (current) drug therapy; F41.9 Anxiety disorder, unspecified; J44.9 Chronic obstructive pulmonary disease, unspecified; F32.9 Major depressive disorder, single episode, unspecified; Z99.81 Dependence on supplemental oxygen; E78.5 Hyperlipidemia, unspecified; I10 Essential (primary) hypertension; Z72.0 Tobacco use; Z85.3 Personal history of malignant neoplasm of breast; Z85.118 Personal history of other malignant neoplasm of bronchus and lung
CPT/HCPCS: 43247; 70490

== ENCOUNTER → 2021-08-03 10:12 | Outpatient (CLI) | payer MEDICARE, MEDICAID, SELFPAY ==
[2021-08-03 10:45] LABS: Basophils # 0.1 K/mm3 (0-0.2); Basophils % 0.5 % (0.1-2.0); Hematocrit 41.8 % (37.0-47.0); Hemoglobin 12.3 g/dL (12.2-16.2); Lymphocytes # 1.2 K/mm3 (0.7-4.5); Lymphocytes % 10.9 % (10-50); Mean Corpuscular HGB Conc 29.4 g/dL (31.8-35.4); Mean Corpuscular Hemoglobin 28.6 pg (27.0-31.2); Mean Corpuscular Volume 97.6 fl (81-99); Monocytes # 0.5 K/mm3 (0.1-1.0); Monocytes % 4.2 % (1.7-9.3); Neutrophils # 9.4 K/mm3 (1.8-7.8); Neutrophils % 84.3 % (37.0-80.0); Platelet Count 332 K/mm3 (142-424); Red Blood Count 4.29 M/mm3 (4.20-5.40); Red Cell Distribution Width 14.5 % (11.5-17.5); White Blood Count 11.1 K/mm3 (4.8-10.8)
[2021-08-07 13:30] LABS: Levetiracetam (Keppra) 9.5 ug/mL (10.0-40.0)
== END ==
PROVIDERS: Visit Provider Emergency Medicine
DX: C50.912 Malignant neoplasm of unspecified site of left female breast (principal); I10 Essential (primary) hypertension; Z51.81 Encounter for therapeutic drug level monitoring
CPT/HCPCS: 80177; 85025

== ENCOUNTER → 2022-01-08 10:27 | Outpatient (CLI) | payer MEDICARE, MEDICAID, SELFPAY ==
--- NOTE | 2022-01-08 10:32 | FL_ITS ---
FINAL REPORT CLINICAL HISTORY: dysphagia time-1.30 FINDINGS: MODIFIED BARIUM SWALLOW History: Dysphagia FINDINGS: Fluoroscopy was provided for the speech pathologist to evaluate the swallowing mechanism. The patient was given several different consistencies of barium while the swallow was visualized fluoroscopically. The report of the speech pathologist should be consulted prior to making dietary decisions. FLUOROSCOPY TIME:1 minute 30 seconds IMPRESSION: Modified barium swallow under fluoroscopic guidance. Please see the report of the speech pathologist for Dietary recommendations. Reviewed, Interpreted and Dictated by Edilberto Oliveros III, MD Transcribed by AYESHA Ruiz Authenticated by Edilberto Oliveros III, MD on 01/10/2022 08:18:28 AM [facility]
--- NOTE | 2022-01-08 11:33 | HMH.SLMBS2 ---
Speech & Language Evaluation Speech/Language Mod Barium Swallow Start: 01/08/22 11:08 Freq: once Status: Complete Protocol: Document 01/08/22 11:08 MEL (Rec: 01/08/22 11:33 MEL [id number]) General Information General Dentition Poor Dentition Oxygen Status Room Air Facial Symmetry Symmetrical Patient Orientation Person,Place,Time Ability to Follow Directions Good Communication Ability Moderate Impairment MBS Recommendations Diet Dietary Recommendations Pureed,Honey Liquids Treatment/Strategies Strategy/Precaution Recommend Sitting Upright (90 deg),Small Bites and Sips,Alternate Liquids/Solids Mod Barium Swallow Impressions Summary and Impressions Oral Phase Impression Moderate Impairment Oral Phase Summary Ms. Carcamo was given the following consistencies; thins via open cup and straw, nectar thick, honey thick, pudding, and puree. Ms. Carcamo displayed no mastication in the oral phase when given puree. Pharyngeal Phase Impression Severe Impairment Pharyngeal Phase Summary Ms. Carcamo penetrated thins via straw into the laryngeal vestibule and displayed silent aspiration when presented thins with an open cup. She displayed silent aspiration with nectar thick with an open cup. Speech/Language MBS Assessment/Goals/Plan Assessment Date of Evaluation: 01/08/22 Evaluation Type Initial Certification Assessment/Problems Dysphagia Does Patient Qualify for Service No Qualify/Failure Comment Pt will be followed up with [facility]. Recommendations PHYSICIAN CERTIFICATION: The specified therapy services are required, authorized, and reviewed every 30 days. Diet Recommendations Pureed Liquid Type Recommendations Honey Consistency SL Swallow Guidelines High aspiration risk,Crush meds as allowed*,Eat at slow rate Crush Meds Crush all meds Dysphagia Swallow Precautions/Strategies Sitting Upright (90 deg),Small Bites and Sips,Alternate Liquids/Solids Plan Pt/Guardian verbally ack understanding Yes of dx/prognosis/goals G -code Required No Mod Barium Swallow Setup Exam Setup Radiologist
== END ==
PROVIDERS: PCP Emergency Medicine; Visit Provider Emergency Medicine
DX: R13.10 Dysphagia, unspecified (principal)
CPT/HCPCS: 70371; 92611

== ENCOUNTER → 2022-02-10 10:31 | Outpatient (CLI) | payer MEDICARE, MEDICAID, SELFPAY ==
--- NOTE | 2022-02-10 10:36 | MM_ITS ---
PROCEDURE INFORMATION: Exam: MG Right Screening 3D Mammography Exam date and time: 02/10/2022 10:38 AM Age: 76 years old Clinical indication: Screening. Personal history of left breast cancer, status post left mastectomy. TECHNIQUE: Imaging protocol: Right Screening tomosynthesis and 2D mammography including computer-aided detection (CAD) when performed. Limited positioning related to mobility impairment. COMPARISON: 1. MG DXRT MM Dig mamm DX unilat RT CAD 08/09/2018 4:06 PM 2. MG DMSB DIG MAMM-SCREEN PETRA W/CAD 10/01/2017 10:38 AM 3. MG DMSB DIG MAMM-SCREEN PETRA 12/11/2015 9:47 AM 4. MG DMDB DIG MAMM-DX PETRA 03/13/2015 1:08 PM FINDINGS: MAMMOGRAPHY: Breast composition: The breast tissue is heterogeneously dense, which may obscure small masses. Mass: None. Architectural distortion: Stable mild architectural distortion in the inner quadrant, middle 3rd, since 03/13/2015. No new architectural distortion. Calcifications: No suspicious calcifications. Asymmetric density: None. Skin thickening: None. Axillary adenopathy: None. Other findings: Biopsy clip. IMPRESSION: No mammographic evidence of malignancy. Annual screening is recommended unless otherwise clinically indicated. ASSESSMENT: BI-RADS Category 2: Benign
== END ==
PROVIDERS: PCP Emergency Medicine; Visit Provider Internal Medicine Medical Oncology
DX: Z12.31 Encounter for screening mammogram for malignant neoplasm of breast (principal)
CPT/HCPCS: 77063; 77067

== ENCOUNTER 2022-02-19 13:05 | Emergency (ER) | payer MEDICARE, MEDICAID, SELFPAY ==
--- NOTE | 2022-02-19 13:04 | ECG_ITS ---
APPROVED REPORT Exam: Resting ECG HR:87 bpm ECG Measurements Heart Rate 87 AXES NJ 173 P 60 QRSd 89 QRS 77 QT 359 T 157 QTc 403 Conclusion SINUS RHYTHM WITH SINUS ARRHYTHMIA NONSPECIFIC ST & T-WAVE ABNORMALITY ABNORMAL ECG UNCONFIRMED REPORT Electronically signed by : Vernon Graham MD 02/20/2022 11:48:23
[2022-02-19 13:15] VITALS: BP 151/85; PULSE 86; RESP 18; TEMP 36.5; O2SAT 88; BMI 24.2
[2022-02-19 13:31] VITALS: BP 129/71; PULSE 78; O2SAT 96
--- NOTE | 2022-02-19 13:57 | XR_ITS ---
FINAL REPORT CLINICAL HISTORY: aspiration COMPARISON: December 29, 2019 FINDINGS: A single view of the chest was obtained. The heart is normal in size. The mediastinum is unremarkable. There are bilateral pulmonary opacities greater in the lung bases which are worrisome for pneumonia. There is no pleural effusion. There is no pneumothorax. There is no acute osseous abnormality. There are postoperative changes in the left axilla. IMPRESSION: Bilateral pulmonary opacities worrisome for pneumonia. Reviewed, Interpreted and Dictated by Edilberto Oliveros III, MD Transcribed by Emelia Gonzalez Authenticated by Edilberto Oliveros III, MD on 02/19/2022 03:26:28 PM [facility]
--- NOTE | 2022-02-19 14:00 | HMH.EDGENADL ---
ED Disposition Clinical Impression: Altered mental status Qualifiers: Altered mental status type: unspecified Qualified Code(s): R41.82 - Altered mental status, unspecified UTI (urinary tract infection) Qualifiers: Urinary tract infection type: site unspecified Hematuria presence: without hematuria Qualified Code(s): N39.0 - Urinary tract infection, site not specified Pneumonia Qualifiers: Pneumonia type: due to unspecified organism Laterality: unspecified laterality Lung location: unspecified part of lung Qualified Code(s): J18.9 - Pneumonia, unspecified organism Disposition: Home, Self-Care Condition on Discharge: Good Instructions: DI for Urinary Tract Infection (UTI), DI for Pneumonia -- Adult, DI for Altered Mental Status Additional Instructions: Levaquin and clindamycin as prescribed. Further care by Dr. Beauchamp. Dr. Graham recommends consideration of outpatient EEG. Return to the emergency department if unresponsiveness returns or any worsening of condition. Prescriptions: clindamycin HCL [Clindamycin HCl] 300 mg PO TID #21 cap Prescription Printed levoFLOXacin [Levaquin 500mg tab] 500 mg PO DAILY #7 tab Prescription Printed Referrals: Haider Beauchamp MD [Primary Care Provider] - - Critical Care Critical Care Time: No Attestation: On 02/19/22, the high probability of a clinically significant, sudden or life threatening deterioration of the following system(s) required my full and direct attention, intervention and personal management. The time I documented below is in addition to time spent performing reported procedures but includes the following listed in this critical care notation. Medical Decision Making - Medical Records Medical records reviewed: Yes: I reviewed the patient's medical records. 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 - Jonathan Inquiry Pt receiving controlled substance: No Vital Signs: 02/19/22 13:15 02/19/22 13:31 02/19/22 14:04 Temperature 97.7 F Temperature Source Rectal Pulse Rate 78 74 Pulse Rate [Left Radial] 86 Respiratory Rate 18 Blood Pressure 129/71 121/71 Blood Pressure [Right Arm] 151/85 H Blood Pressure Mean [Right Arm] 107 02 Sat by Pulse Oximetry 88 L 96 97 Oxygen Delivery Method Room Air Nasal Cannula Nasal Cannula Oxygen Flow Rate (LPM) 3 3 02/19/22 16:34 Temperature Temperature Source Pulse Rate 68 Pulse Rate [Left Radial] Respiratory Rate 17 Blood Pressure 137/79 Blood Pressure [Right Arm] Blood Pressure Mean [Right Arm] 02 Sat by Pulse Oximetry 94 L Oxygen Delivery Method Nasal Cannula Oxygen Flow Rate (LPM) - Lab Data Lab Results 02/19/22 13:25: WBC 4.4 L, RBC 4.28, Hgb 12.2, Hct 40.6, MCV 94.9, MCH 28.5, MCHC 30.1 L, RDW 15.6, Plt Count 304, MPV 8.0, Neut % (Auto) 62.6, Lymph % (Auto) 30.0, [place] % (Auto) 5.3, Eos % (Auto) 0.1, Baso % (Auto) 1.9, Neut # (Auto) 2.7, Lymph # (Auto) 1.3, [place] # (Auto) 0.2, Eos # (Auto) 0.0, Baso # (Auto) 0.1 02/19/22 13:25: Sodium 138, Potassium 3.5, Chloride 111 H, Carbon Dioxide 22, Anion Gap 8.5, BUN 13, Creatinine 0.90, Estimated Creat Clear 51, Estimated GFR 61, Est GFR ( Amer) 73, Glucose 111 H, Calcium 8.4, Total Bilirubin 0.3, AST 28, ALT 13, Alkaline Phosphatase 172 H, Total Protein 7.0, Albumin 3.6, Globulin 3.4 H, Albumin/Globulin Ratio 1.1 02/19/22 13:25: SARS-CoV-2 (PCR) Not detected, Influenza A Untype (PCR) Not detected, Influenza Type B (PCR) Not detected 02/19/22 14:01: Urine Color Yellow, Urine Appearance Clear, Urine pH 6.0, Ur Specific [place] 1.025, Urine Protein 2+, Urine Glucose (UA) Negative, Uri
[2022-02-19 14:03] LABS: Microscopic, Urine URINE MICROSCOPIC (MICROSCOPIC)
[2022-02-19 14:04] VITALS: BP 121/71; PULSE 74; O2SAT 97
--- NOTE | 2022-02-19 14:04 | PC.NURSE ---
ED MD at
[2022-02-19 14:08] LABS: Appearance,Urine CLEAR (Clear); Bilirubin,Urine Negative (Negative); Blood, Urine 1+ (Negative); Color,Urine YELLOW (Yellow); Glucose,Urine (UA) Negative (Negative); Ketones,Urine Negative (Negative); Leukocyte Esterase,Urine 1+ (Negative); Nitrate,Urine POSITIVE (Negative); Protein,Urine 2+ (Negative); Specific Gravity, Urine 1.025 (1.005-1.030); Urobilinogen,Urine 0.2 EU/dl (0.2)
[2022-02-19 14:08] LABS: Basophils # 0.1 K/mm3 (0-0.2); Basophils % 1.9 % (0.1-2.0); Eosinophils % 0.1 % (0.1-12.0); Hematocrit 40.6 % (37.0-47.0); Hemoglobin 12.2 g/dL (12.2-16.2); Lymphocytes # 1.3 K/mm3 (0.7-4.5); Mean Corpuscular HGB Conc 30.1 g/dL (31.8-35.4); Mean Corpuscular Hemoglobin 28.5 pg (27.0-31.2); Mean Corpuscular Volume 94.9 fl (81-99); Monocytes # 0.2 K/mm3 (0.1-1.0); Monocytes % 5.3 % (1.7-9.3); Neutrophils # 2.7 K/mm3 (1.8-7.8); Neutrophils % 62.6 % (37.0-80.0); Platelet Count 304 K/mm3 (142-424); Red Blood Count 4.28 M/mm3 (4.20-5.40); Red Cell Distribution Width 15.6 % (11.5-17.5); White Blood Count 4.4 K/mm3 (4.8-10.8)
[2022-02-19 14:12] LABS: Alanine Aminotransferase 13 U/L (12-78); Albumin Level 3.6 g/dl (3.5-5.0); Albumin/Globulin Ratio 1.1 (1.1-1.8); Alkaline Phosphatase 172 U/L (38-126); Anion Gap 8.5 mEq/L (5-15); Aspartate Amino Transferase 28 U/L (14-36); Bilirubin,Total 0.3 mg/dl (0.2-1.3); Blood Urea Nitrogen 13 mg/dl (7-17); Calcium 8.4 mg/dl (8.4-10.2); Carbon Dioxide 22 mmol/L (22.0-30.0); Chloride 111 mmol/L (98-107); Creatinine Clearance Estimated 51 mL/min (50-200); Estimated Glomerular Filt Rate 61 ml/min (>60); GFR (African American) 73 ML/MIN (>60); Globulin 3.4 g/dL (1.3-3.2); Glucose 111 mg/dl (74-100); Potassium 3.5 mmoL/L (3.5-5.1); Sodium 138 mmol/L (136-145)
--- NOTE | 2022-02-19 14:16 | CT_ITS ---
FINAL REPORT CLINICAL HISTORY: [facility] COMPARISON: 08/17/2019 FINDINGS: Axial images of the head were obtained without contrast. Coronal reformatted images were also obtained. This study was performed with techniques to keep radiation doses as low as reasonably achievable (ALARA). Individualized dose reduction techniques using automated exposure control or adjustment of mA and/or kV according to the patient's size were employed. There is generalized age appropriate atrophy. There is no evidence of intracranial hemorrhage or mass. There are stable, bilateral areas of encephalomalacia, left worse than right. Mild ventriculomegaly is stable. There is no evidence of shift of the midline structures. Postoperative changes are seen in the left frontal skull. IMPRESSION: No acute intracranial abnormality. Stable chronic findings. Reviewed, Interpreted and Dictated by Edilberto Oliveros III, MD Transcribed by Emelia Gonzalez Authenticated by Edilberto Oliveros III, MD on 02/19/2022 04:10:42 PM [facility]
[2022-02-19 14:23] LABS: Bacteria,Urine 1+ /lpf; Squamous Epithelial Cell,Urine Occasional #/hpf (0-5)
--- NOTE | 2022-02-19 14:24 | PC.NURSE ---
RT notified of ABG
[2022-02-19 14:25] LABS: Coronavirus 19, PCR Not Detected (NotDetected); Influenza A, PCR Not Detected (NotDetected); Influenza B, PCR Not Detected (NotDetected)
--- NOTE | 2022-02-19 14:38 | PC.NURSE ---
RT at bedside.
--- NOTE | 2022-02-19 14:45 | PC.NURSE ---
Patient to CT with sewer and drain technician
[2022-02-19 14:47] LABS: ABG Base Excess -5.7 mmol/L (-2.4-2.3); ABG HCO3 20.3 mmhg (22.0-26.0); ABG Oxygen Saturation 89 % (90-100); ABG PCO2 40.2 mmhg (35.0-45.0); ABG PH 7.32 mmol/L (7.35-7.45); ABG PO2 55.8 mmhg (80-100); ABG TCO2 21.6 mmhg (23-27)
[2022-02-19 14:49] LABS: Allen's Test Acceptable; Oxygen 3 LNC %; Source Left Radial
--- NOTE | 2022-02-19 15:00 | PC.NURSE ---
patient back from CT with analytical lab technician by maribeth
[2022-02-19 16:34] VITALS: BP 137/79; PULSE 68; RESP 17; O2SAT 94
--- NOTE | 2022-02-19 17:34 | PC.NURSE ---
ED MD at for update on POC
--- NOTE | 2022-02-19 17:39 | PC.NURSE ---
Dr. Gladys delgado, who is covering for Dr. Beauchamp
--- NOTE | 2022-02-19 18:11 | PC.NURSE ---
Notified Ritesh pt was ready to go back to [facility]
[2022-02-19 18:48] VITALS: BP 149/79; PULSE 70; RESP 19; O2SAT 93
[2022-02-19 18:57] VITALS: BP 138/75; PULSE 71; RESP 17; TEMP 36.7; O2SAT 91
== END 2022-02-19 19:00 | disposition home or self-care (01) ==
PROVIDERS: Emergency Provider Emergency Medicine; PCP Emergency Medicine
DX: N30.00 Acute cystitis without hematuria (principal); J18.9 Pneumonia, unspecified organism; J44.9 Chronic obstructive pulmonary disease, unspecified; F41.8 Other specified anxiety disorders; I10 Essential (primary) hypertension; E78.5 Hyperlipidemia, unspecified; Z79.899 Other long term (current) drug therapy
CPT/HCPCS: 51702; 70450; 71045; 80053; 81001; 82803; 85025; 87086; 87088; 87186; 93005; 96365; 99284; C9803; J1335; U0003; U0005

== ENCOUNTER → 2022-02-27 13:23 | Outpatient (CLI) | payer MEDICARE, MEDICAID, SELFPAY | PROVIDERS: PCP Emergency Medicine; Visit Provider Emergency Medicine | DX: R56.9 Unspecified convulsions (principal) | CPT/HCPCS: 95816 ==

== ENCOUNTER → 2022-10-06 12:52 | Outpatient (CLI) | payer MEDICARE, MEDICAID, SELFPAY ==
--- NOTE | 2022-10-06 12:55 | FL_ITS ---
FINAL REPORT CLINICAL HISTORY: .DYSPHAGIA 4:00 MIN FLUORO TIME FINDINGS: MODIFIED BARIUM SWALLOW HISTORY: Dysphagia. FINDINGS: Fluoroscopy was provided for the speech pathologist to evaluate the swallowing mechanism. The patient was given several different consistencies of barium while the swallow was visualized fluoroscopically. The report of the speech pathologist should be consulted prior to making dietary decisions. IMPRESSION: Modified barium swallow under fluoroscopic guidance. Please see speech pathologist's report for further details and dietary recommendations. Fluoroscopy time was 4 minutes A total of 18 cine runs were saved. Reviewed, Interpreted and Dictated by Edilberto Oliveros III, MD Transcribed by Danielle Loaiza PA-C Authenticated and [facility]
--- NOTE | 2022-10-06 15:02 | HMH.SLMBS2 ---
Speech & Language Evaluation Speech/Language Mod Barium Swallow Start: 10/06/22 14:28 Freq: once Status: Complete Protocol: Document 10/06/22 14:28 ANASTACIO (Rec: 10/06/22 15:02 ANASTACIO [id number]) General Information General Current Food Consistency Mechanical Soft,Honey Liquids Dentition Edentulous Oxygen Status Room Air Ability to Follow Directions Poor Communication Ability Severe Impairment MBS Recommendations Diet Dietary Recommendations Pureed,Honey Liquids Treatment/Strategies Strategy/Precaution Recommend Sitting Upright (90 deg),Small Bites and Sips,Alternate Liquids/Solids Mod Barium Swallow Impressions Summary and Impressions Oral Phase Impression Moderate Impairment Oral Phase Summary Moderate oral dysphagia. Pt demonstrated moderately prolonged mastication time 2' lack of dentition as well as generalized weakness. Premature spillage into the pharynx was also noted with all consistencies trialed. Pharyngeal Phase Impression Severe Impairment Pharyngeal Phase Summary Yuan aspiration was noted with nectar thick liquids during the swallow 2' mistiming and discoordination. Aspiration was silent, however, pt was able to clear aspirated material from the airway with a cued cough and secondary swallow. Trace aspiration noted with thin liquids, also 2' mistiming and discoordination, however, very small bolus size of thin was accepted from pt, despite cues. If given a larger bolus, aspiration would have likely been more severe. Pt also aspirated a small, unmasticated piece of mechanical soft. Again, aspiration was silent. Pt was able to clear material from her airway with a cued cough and secondary swallow. Pt presented with min-mod diffuse pharyngeal residue with thin and nectar thick liquids.
== END ==
PROVIDERS: PCP Emergency Medicine; Visit Provider Emergency Medicine
DX: R13.10 Dysphagia, unspecified (principal)
CPT/HCPCS: 70371; 92611

== ENCOUNTER 2022-11-18 07:22 | Emergency (ER) | payer MEDICARE, MEDICAID, SELFPAY ==
[2022-11-18] VITALS (14 sets, daily range): BP systolic 154–197; BP diastolic 87–108; PULSE 63–87; RESP 14–24; TEMP 35.5–37.2; O2SAT 88–98; BMI 23.9
--- NOTE | 2022-11-18 07:26 | CT_ITS ---
FINAL REPORT TECHNIQUE: Thin section axial images were obtained through the cervical spine without contrast. Multiplanar reconstruction images were obtained from the axial data. Exam was performed using dose reduction techniques. CLINICAL HISTORY: fall COMPARISON: August 2019 FINDINGS: There is no acute fracture or acute malalignment of the cervical spine. There is no evidence of unilateral or bilateral facet lock. Vertebral body height is preserved. Advanced multilevel degenerative disc disease is unchanged. Flowing anterior osteophytes are unchanged. There is a slight mottled appearance to the vertebral bodies in the lower cervical spine, similar to prior. Underlying bone lesions cannot be excluded. No acute paraspinal abnormality is identified. Images through the lung apices demonstrate underlying emphysema. IMPRESSION: No acute osseous abnormality of the cervical spine. Advanced degenerative disc disease, unchanged. Slight mottled appearance of the vertebral bodies, similar to prior. If there is concern for bony metastasis consider MRI. Reviewed, Interpreted and Dictated by Tahmina Esparza MD Transcribed by Mayito Dickens Authenticated and [facility]
--- NOTE | 2022-11-18 07:26 | XR_ITS ---
FINAL REPORT CLINICAL HISTORY: fall FINDINGS: AP PELVIS: A single view of the pelvis was obtained. There is no acute fracture of the pelvis or either hip. There is no dislocation. There is degenerative disease of both hips. There is stable increased density in the bones of the right pelvis. Bony metastasis cannot be excluded. IMPRESSION: No acute fracture. Stable increased density in the bones of the right pelvis. Bony metastasis not excluded. Reviewed, Interpreted and Dictated by Tahmina Esparza MD Transcribed by Mayito Dickens Authenticated and [facility]
--- NOTE | 2022-11-18 07:26 | XR_ITS ---
FINAL REPORT CLINICAL HISTORY: fall FINDINGS: A portable view of the chest was obtained. Comparison is made to a prior exam dated January 2022. Cardiac and mediastinal silhouettes are within normal limits. There is right perihilar and left basilar opacity. There is no pleural effusion or pneumothorax. There are surgical clips in the left axillary region. IMPRESSION: Right perihilar and left basilar opacity. Pneumonia cannot be excluded. Reviewed, Interpreted and Dictated by Tahmina Esparza MD Transcribed by Mayito Dickens Authenticated and [facility]
--- NOTE | 2022-11-18 07:26 | CT_ITS ---
FINAL REPORT TECHNIQUE: Thin section axial images were obtained from skull base to vertex without contrast. Coronal reconstruction images were obtained from the axial data. Exam was performed using dose reduction technique. CLINICAL HISTORY: fall COMPARISON: January 2022 FINDINGS: There is no mass effect or midline shift. Atrophy and ventricular enlargement is stable. Hypodense areas in the left greater than right cerebral hemispheres and are stable. There is no intracranial hemorrhage. The posterior fossa is without acute abnormality. The basilar cisterns are preserved. The soft tissues are without acute abnormality. There are postoperative changes of the left frontal calvarium. IMPRESSION: Extensive chronic findings. No acute hemorrhage. If concern persists consider MRI. Reviewed, Interpreted and Dictated by Tahmina Esparza MD Transcribed by Mayito Dickens Authenticated and [facility]
--- NOTE | 2022-11-18 07:35 | ECG_ITS ---
APPROVED REPORT Exam: Resting ECG HR:70 bpm ECG Measurements Heart Rate [address] 156 P 88 QRSd 83 QRS 75 QT 394 T 121 QTc 415 Conclusion SINUS RHYTHM WITH OCCASIONAL VENTRICULAR PREMATURE COMPLEXES LEFT VENTRICULAR HYPERTROPHY AND ST-T CHANGE [VOLTAGE CRITERIA PLUS ST/T ABNORMALITY] ABNORMAL ECG UNCONFIRMED REPORT Electronically signed by : Vernon Graham MD 11/18/2022 19:11:03
[2022-11-18 07:43] LABS: Basophils # 0.1 K/mm3 (0-0.2); Basophils % 1.1 % (0.1-2.0); Eosinophils # 0.1 K/mm3 (0.0-0.4); Eosinophils % 1.1 % (0.1-12.0); Hematocrit 44.3 % (37.0-47.0); Hemoglobin 14.1 g/dL (12.2-16.2); Lymphocytes # 1.4 K/mm3 (0.7-4.5); Lymphocytes % 30.9 % (10-50); Mean Corpuscular HGB Conc 31.8 g/dL (31.8-35.4); Mean Corpuscular Volume 84.9 fl (81-99); Mean Platelet Volume 7.8 fl (7.4-10.4); Monocytes # 0.2 K/mm3 (0.1-1.0); Monocytes % 4.6 % (1.7-9.3); Neutrophils # 2.8 K/mm3 (1.8-7.8); Neutrophils % 62.3 % (37.0-80.0); Platelet Count 369 K/mm3 (142-424); Red Blood Count 5.22 M/mm3 (4.20-5.40); Red Cell Distribution Width 14.5 % (11.5-17.5); White Blood Count 4.5 K/mm3 (4.8-10.8)
[2022-11-18 07:50] LABS: Alanine Aminotransferase 15 U/L (12-78); Albumin Level 4.1 g/dl (3.5-5.0); Albumin/Globulin Ratio 1.1 (1.1-1.8); Alkaline Phosphatase 159 U/L (38-126); Anion Gap 12.5 mEq/L (5-15); Aspartate Amino Transferase 39 U/L (14-36); Bilirubin,Total 1.1 mg/dl (0.2-1.3); Blood Urea Nitrogen 13 mg/dl (7-17); Calcium 8.9 mg/dl (8.4-10.2); Carbon Dioxide 24 mmol/L (22.0-30.0); Chloride 109 mmol/L (98-107); Creatinine Clearance Estimated 45 mL/min (50-200); Estimated Glomerular Filt Rate 61 ml/min (>60); GFR (African American) 73 ML/MIN (>60); Globulin 3.6 g/dL (1.3-3.2); Glucose 111 mg/dl (74-100); Magnesium 1.9 mg/dl (1.6-2.3); Potassium 4.5 mmoL/L (3.5-5.1); Sodium 141 mmol/L (136-145); Total Protein,Serum 7.7 g/dl (6.3-8.2)
--- NOTE | 2022-11-18 07:50 | PC.NURSE ---
pt to radiology
--- NOTE | 2022-11-18 07:58 | PC.NURSE ---
pt returned from radiology
--- NOTE | 2022-11-18 07:58 | HMH.EDGENADL ---
Discharge Plan Disposition Patient Disposition: Xfer SNF Condition: Good Prescriptions Prescriptions: No Action citalopram 20 mg tablet 20 mg PO famotidine 20 mg tablet 20 mg PO amlodipine 10 mg tablet 10 mg PO letrozole 2.5 mg tablet 2.5 mg PO ipratropium-albuterol 0.5 mg-3 mg(2.5 mg base)/3 mL solution for nebulization 3 ml INHALATION Q4H PRN (Reason: asthma) topiramate 50 mg tablet 50 mg PO DAILY hyoscyamine sulfate 0.125 mg tablet 0.125 mg PO Q4H PRN lorazepam 0.5 mg tablet 0.5 mg PO Q6H PRN gabapentin 600 mg tablet 600 mg PO BID Qty: 60 5RF acetaminophen 500 MG tablet 500 mg PO TID ondansetron 8 MG tablet,disintegrating 8 mg PO Q8H PRN (Reason: Nausea) levofloxacin 500 MG tablet 500 mg PO DAILY Qty: 7 0RF sennosides-docusate sodium 8.6-50 mg tablet 2 tab-cap PO DAILY PRN (Reason: CONSTIPATION) polyethylene glycol 3350 17 GM powder in packet 17 g G-TUBE BID aspirin 81 mg tablet,delayed release (DR/EC) 81 mg PO DAILY Referrals Follow up/Referrals: Haider Beauchamp MD [Primary Care Provider] - See instructions Activity Restrictions/Add. Instructions Additional Instructions/Restrictions: You were evaluated in the emergency department today after an unwitnessed fall. Please continue administering prescription medications at home as prescribed. Keep a log of blood pressures at home and provide them to your primary care provider to assess whether or not blood pressure medications need to be changed. Return to the emergency department for new or worsening symptoms. Clinical Impressions Clinical Impression: Fall Qualifiers: Encounter type: initial encounter Qualified Code(s): W19.XXXA - Unspecified fall, initial encounter Hypertension Qualifiers: Hypertension type: unspecified Qualified Code(s): I10 - Essential (primary) hypertension Instructions Patient Instructions: How to Prevent Falls Discharge ED Provider: Edith Chau General Adult HPI General Chief complaint: Fall Stated complaint: fall Time Seen by Provider: 11/18/22 07:55 Mode of Arrival: EMS Source of Information: Patient, EMS and Medical Record Limitations: Physical Limitations Description of Symptoms (Recalled from ER Triage Doc. by RN): c/o lower abdomen/pelvis pain. per [facility] was found on the floor this am at that time her bp was 220/110 and pt was no as verbal as she usually is. Before she left the [facility], nurse states she was back to her normal, unsure if she hit her head. Upon arrival pt is able to answer questions appropriately to her baseline. left knee abrasion History of Present Illness HPI narrative: This patient is a 77-year-old female with a history of COPD, dementia, and frequent falls presenting to the emergency department for evaluation with concern for an unwitnessed ground-level fall. According to [facility] staff, she was found on the floor this morning and was not as verbal as she usually is. Unsure if she hit her head or not. She was back to normal by the time EMS arrived to bring the patient here. They also noted her to be hypertensive at the [facility] with a blood pressure of 220/110. Patient does not contribute much to history given her baseline mental status. She denies any complaints on my assessment at this time. No other concerns noted by [facility] right now. Related Data Home Medications Medication Instructions Recorded Confirmed polyethylene glycol 3350 17 gram 17 g G-tube BID CONSTIPATION 08/10/19 08/22/22 oral powder packet acetaminophen 500 mg tablet 500 mg PO TID Pain 08/17/19 08/22/22 ondansetron 8 mg disintegrating 8 mg PO Q8H PRN Nausea 08/17/19 08/22/22 tablet ipratropium 0.5 mg-albuterol 3 mg 3 ml inhalation Q4H PRN asthma 05/25/20 08/22/22 (2.5 mg base)/3 mL nebulization soln amlodipine 10 mg tablet 10 mg PO 07/18/21 08/22/22 citalopram 20 mg tablet 20 mg PO
[2022-11-18 08:02] LABS: Troponin I 0.04 ng/ml (0.00-0.034)
[2022-11-18 08:31] LABS: Creatine Kinase 39 U/L (30-135)
[2022-11-18 08:34] LABS: Microscopic, Urine URINE MICROSCOPIC (MICROSCOPIC)
[2022-11-18 08:36] LABS: Appearance,Urine SL CLOUDY (Clear); Bilirubin,Urine Negative (Negative); Blood, Urine TRACE-I (Negative); Color,Urine YELLOW (Yellow); Glucose,Urine (UA) Negative (Negative); Ketones,Urine Negative (Negative); Leukocyte Esterase,Urine TRACE (Negative); Nitrate,Urine POSITIVE (Negative); Protein,Urine 3+ (Negative); Specific Gravity, Urine 1.025 (1.005-1.030)
[2022-11-18 08:59] LABS: Bacteria,Urine 3+ /lpf
[2022-11-18 11:11] LABS: Troponin I < 0.01 ng/ml (0.00-0.034)
--- NOTE | 2022-11-18 11:22 | ECG_ITS ---
APPROVED REPORT Exam: Resting ECG HR:79 bpm ECG Measurements Heart Rate 79 AXES [place] 139 P 71 QRSd 86 QRS 46 QT 360 T 125 QTc 394 Conclusion SINUS RHYTHM WITH OCCASIONAL VENTRICULAR PREMATURE COMPLEXES LEFT VENTRICULAR HYPERTROPHY AND ST-T CHANGE [VOLTAGE CRITERIA PLUS ST/T ABNORMALITY] ABNORMAL ECG UNCONFIRMED REPORT Electronically signed by : Vernon Graham MD 11/18/2022 19:09:44
[2022-11-18 13:51] LABS: Troponin I < 0.01 ng/ml (0.00-0.034)
== END 2022-11-18 14:35 ==
PROVIDERS: Student in an Organized Health Care Education/Training Program; Emergency Provider Emergency Medicine; PCP Emergency Medicine
DX: R10.30 Lower abdominal pain, unspecified (principal); R10.2 Pelvic and perineal pain; I10 Essential (primary) hypertension; R29.6 Repeated falls; W19.XXXA Unspecified fall, initial encounter; J44.9 Chronic obstructive pulmonary disease, unspecified; F03.90 Unspecified dementia, unspecified severity, without behavioral disturbance, psychotic disturbance, mood disturbance, and anxiety
CPT/HCPCS: 36415; 70450; 71045; 72126; 72170; 80053; 81001; 82550; 83735; 84484; 85025; 87086; 87088; 87186; 93005; 99285

== ENCOUNTER 2022-12-27 14:13 | Emergency (ER) | payer MEDICARE, MEDICAID, SELFPAY ==
[2022-12-27 14:13] VITALS: BP 169/85; PULSE 68; RESP 19; TEMP 36.8; O2SAT 92; BMI 26.6
--- NOTE | 2022-12-27 14:13 | CT_ITS ---
PROCEDURE INFORMATION: Exam: CT Head Without Contrast Exam date and time: 12/27/2022 2:21 PM Age: 77 years old Clinical indication: Stroke-like symptoms; Right facial droop; Additional info: Facial droop; Stroke symptoms TECHNIQUE: Imaging protocol: Computed tomography of the head without contrast. Radiation optimization: All CT scans at this facility use at least one of these dose optimization techniques: automated exposure control; mA and/or kV adjustment per patient size (includes targeted exams where dose is matched to clinical indication); or iterative reconstruction. Other technique: STROKE PROTOCOL was implemented. REPORTING DATA: Count of CT and Cardiac NM exams in prior 12 months: This patient has received 4 known CTs and 0 known cardiac nuclear medicine studies in the 12 months prior to the current study. COMPARISON: CT HEAD/BRAIN WO CON 11/18/2022 7:45 AM FINDINGS: Brain: Extensive multifocal encephalomalacia, limiting evaluation for acute ischemia. No acute intracranial hemorrhage. Cerebral ventricles: Compensatory dilatation of the occipital horn left lateral ventricle. Paranasal sinuses: Visualized sinuses are unremarkable. No fluid levels. Mastoid air cells: Visualized mastoid air cells are well aerated. Bones/joints: Left frontal previous craniotomy. Soft tissues: Unremarkable. IMPRESSION: 1. Extensive multifocal encephalomalacia, limiting evaluation for acute ischemia. 2. No acute intracranial hemorrhage. ASSESSMENT: ASPECTS ([place] Stroke Program Early CT Score) can not be performed on current study.
--- NOTE | 2022-12-27 14:14 | PC.NURSE ---
DURAN HEMPHILL performing exam rad aware of CT for stroke protocol
--- NOTE | 2022-12-27 14:15 | CT_ITS ---
PROCEDURE INFORMATION: Exam: CTA Head With Contrast, Arteriography Exam date and time: 12/27/2022 2:24 PM Age: 77 years old Clinical indication: Stroke-like symptoms; Speech disturbance; Right facial droop; Additional info: Stroke symptoms TECHNIQUE: Imaging protocol: Computed tomographic angiography of the head with contrast. Exam focused on the arteries. 3D rendering (Not supervised by radiologist): MIP and/or 3D reconstructed images were created by the technologist. Radiation optimization: All CT scans at this facility use at least one of these dose optimization techniques: automated exposure control; mA and/or kV adjustment per patient size (includes targeted exams where dose is matched to clinical indication); or iterative reconstruction. Contrast material: ISOVUE; Contrast volume: 100 ml; Contrast route: INTRAVENOUS (IV); REPORTING DATA: Count of CT and Cardiac NM exams in prior 12 months: This patient has received 5 known CTs and 0 known cardiac nuclear medicine studies in the 12 months prior to the current study. COMPARISON: CT HEAD/BRAIN WO CON 12/27/2022 2:21 PM FINDINGS: ANTERIOR CIRCULATION: Right internal carotid artery: Intracranial segment is patent with no significant stenosis. No aneurysm. Atherosclerotic calcification in the supraclinoid segment. Right middle cerebral artery: No occlusion or significant stenosis. No aneurysm. Right anterior cerebral artery: No occlusion or significant stenosis. No aneurysm. Left internal carotid artery: Intracranial segment is patent with no significant stenosis. No aneurysm. Atherosclerotic calcification in the supraclinoid segment. Left middle cerebral artery: No occlusion or significant stenosis. No aneurysm. Left anterior cerebral artery: No occlusion or significant stenosis. No aneurysm. POSTERIOR CIRCULATION: Right vertebral artery: No occlusion or significant stenosis. No aneurysm. Left vertebral artery: No occlusion or significant stenosis. No aneurysm. Basilar artery: No occlusion or significant stenosis. No aneurysm. Right posterior cerebral artery: No occlusion or significant stenosis. No aneurysm. Left posterior cerebral artery: No occlusion or significant stenosis. No aneurysm. Brain: No definite mass, mass effect, or midline shift. Extensive encephalomalacia from previous remote infarctions. Cerebral ventricles: No ventriculomegaly. Bones/joints: Unremarkable. No acute fracture. Soft tissues: Unremarkable. IMPRESSION: No large vessel stenosis or occlusion.
--- NOTE | 2022-12-27 14:15 | PC.NURSE ---
pt to CT
--- NOTE | 2022-12-27 14:18 | CT_ITS ---
PROCEDURE INFORMATION: Exam: CTA Neck With Contrast Exam date and time: 12/27/2022 2:24 PM Age: 77 years old Clinical indication: Stroke-like symptoms; Altered mental status/memory loss; Right facial droop; Additional info: CVA TECHNIQUE: Imaging protocol: Computed tomographic angiography of the neck with contrast. 3D rendering (Not supervised by radiologist): MIP and/or 3D reconstructed images were created by the technologist. Radiation optimization: All CT scans at this facility use at least one of these dose optimization techniques: automated exposure control; mA and/or kV adjustment per patient size (includes targeted exams where dose is matched to clinical indication); or iterative reconstruction. Contrast material: ISOVUE; Contrast volume: 100 ml; Contrast route: INTRAVENOUS (IV); REPORTING DATA: Count of CT and Cardiac NM exams in prior 12 months: This patient has received 5 known CTs and 0 known cardiac nuclear medicine studies in the 12 months prior to the current study. COMPARISON: CT SOFT TISSUE NECK WO CON 07/17/2021 10:07 AM FINDINGS: Right common carotid artery: No stenosis. No dissection or occlusion. Right internal carotid artery: No stenosis of the extracranial segment. No dissection or occlusion. Right external carotid artery: No occlusion or stenosis of the origin. Left common carotid artery: No stenosis. No dissection or occlusion. Left internal carotid artery: No stenosis of the extracranial segment. No dissection or occlusion. Left external carotid artery: No occlusion or stenosis of the origin. Right vertebral artery: No stenosis. No dissection or occlusion. Left vertebral artery: No stenosis. No dissection or occlusion. Soft tissues: Normal. No significant soft tissue swelling. Bones/joints: No acute fracture. IMPRESSION: No stenosis or occlusion. REFERENCES: NASCET CRITERIA. The degree of stenosis in the cervical segment of the internal carotid artery is based on NASCET criteria. Normal is no stenosis. Mild is less than 50% stenosis. Moderate is 50-69% stenosis. Severe is 70% to 99% stenosis. Total occlusion is no detectable patent lumen.
--- NOTE | 2022-12-27 14:19 | XR_ITS ---
PROCEDURE INFORMATION: Exam: XR Chest Exam date and time: 12/27/2022 3:04 PM Age: 77 years old Clinical indication: Shortness of breath; Additional info: CVA TECHNIQUE: Imaging protocol: Radiologic exam of the chest. Views: 1 view. COMPARISON: CR XR CHEST PORTABLE 11/18/2022 8:01 AM FINDINGS: Lungs: Continued right perihilar opacity, slightly improved since previous examination. May be resolving pneumonia although new infection can not be excluded. Pleural spaces: Unremarkable. No pleural effusion. No pneumothorax. Heart/Mediastinum: Stable cardiomegaly. Bones/joints: Unremarkable. Soft tissues: Surgical clips left axilla. IMPRESSION: Continued right perihilar opacity, slightly improved since previous examination. May be resolving pneumonia although new infection can not be excluded.
--- NOTE | 2022-12-27 14:32 | ECG_ITS ---
APPROVED REPORT Exam: Resting ECG HR:65 bpm ECG Measurements Heart Rate 65 AXES AZ 158 P 70 QRSd 89 QRS 47 QT 383 T 117 QTc 395 Conclusion SINUS RHYTHM WITH OCCASIONAL SUPRAVENTRICULAR PREMATURE COMPLEXES POSSIBLE RIGHT VENTRICULAR CONDUCTION DELAY [RSR (QR) IN V1/V2] MINIMAL VOLTAGE CRITERIA FOR LVH, CONSIDER NORMAL VARIANT [MEETS CRITERIA IN ONE OF: R(aVL), S(V1), R(V5), R(V5/V6)+S(V1)] SEPTAL MYOCARDIAL INFARCTION , PROBABLY OLD [40+ ms Q WAVE IN V1/V2] MODERATE T-WAVE ABNORMALITY, CONSIDER LATERAL ISCHEMIA [-0.1+ mV T-WAVE IN I/aVL/V5/V6] ABNORMAL ECG UNCONFIRMED REPORT Electronically signed by : Vernon Graham MD 12/27/2022 20:00:29
--- NOTE | 2022-12-27 14:41 | HMH.EDGENADL ---
Discharge Plan Disposition Patient Disposition: Home, Self-Care Condition: Serious Prescriptions Prescriptions: No Action citalopram 20 mg tablet 20 mg PO famotidine 20 mg tablet 20 mg PO amlodipine 10 mg tablet 10 mg PO letrozole 2.5 mg tablet 2.5 mg PO ipratropium-albuterol 0.5 mg-3 mg(2.5 mg base)/3 mL solution for nebulization 3 ml INHALATION Q4H PRN (Reason: asthma) topiramate 50 mg tablet 50 mg PO DAILY hyoscyamine sulfate 0.125 mg tablet 0.125 mg PO Q4H PRN lorazepam 0.5 mg tablet 0.5 mg PO Q6H PRN gabapentin 600 mg tablet 600 mg PO BID Qty: 60 5RF acetaminophen 500 MG tablet 500 mg PO TID ondansetron 8 MG tablet,disintegrating 8 mg PO Q8H PRN (Reason: Nausea) levofloxacin 500 MG tablet 500 mg PO DAILY Qty: 7 0RF sennosides-docusate sodium 8.6-50 mg tablet 2 tab-cap PO DAILY PRN (Reason: CONSTIPATION) polyethylene glycol 3350 17 GM powder in packet 17 g G-TUBE BID aspirin 81 mg tablet,delayed release (DR/EC) 81 mg PO DAILY Referrals Follow up/Referrals: Haider Beauchamp MD [Primary Care Provider] - See instructions Clinical Impressions Clinical Impression: Acute CVA (cerebrovascular accident) Stand Alone Forms Stand Alone Forms: Transfer Record - ED Discharge ED Provider: Wali Cortez General Adult HPI General Chief complaint: Neuro Symptoms/Deficit Stated complaint: possible cva Time Seen by Provider: 12/27/22 14:15 Mode of Arrival: EMS Source of Information: EMS and Medical Record Limitations: Altered Mental Status History of Present Illness HPI narrative: This is a 77-year-old female with history of CVA with residual right-sided deficits, COPD, CAD who is presenting with right-sided weakness and facial droop. Per EMS, they were called secondary to altered mental status and right-sided facial droop, right-sided weakness, decreased ability to express herself starting around shift change (7 AM) at nursing facility. She was observed and given no improvement, EMS was called approximately 30 minutes prior to arrival. Glucose 140. Related Data Home Medications Medication Instructions Recorded Confirmed polyethylene glycol 3350 17 gram 17 g G-tube BID CONSTIPATION 08/10/19 11/25/22 oral powder packet acetaminophen 500 mg tablet 500 mg PO TID Pain 08/17/19 11/25/22 ondansetron 8 mg disintegrating 8 mg PO Q8H PRN Nausea 08/17/19 11/25/22 tablet ipratropium 0.5 mg-albuterol 3 mg 3 ml inhalation Q4H PRN asthma 05/25/20 11/25/22 (2.5 mg base)/3 mL nebulization soln amlodipine 10 mg tablet 10 mg PO 07/18/21 11/25/22 citalopram 20 mg tablet 20 mg PO 07/18/21 11/25/22 famotidine 20 mg tablet 20 mg PO 07/18/21 11/25/22 letrozole 2.5 mg tablet 2.5 mg PO 07/18/21 11/25/22 aspirin 81 mg tablet,delayed 81 mg PO DAILY Blood thinner 07/29/21 11/25/22 release topiramate 50 mg tablet 50 mg PO DAILY 02/03/22 11/25/22 hyoscyamine sulfate 0.125 mg tablet 0.125 mg PO Q4H PRN 08/22/22 11/25/22 lorazepam 0.5 mg tablet 0.5 mg PO Q6H PRN 08/22/22 11/25/22 sennosides 8.6 mg-docusate sodium 2 tab-cap PO DAILY PRN CONSTIPATION 08/22/22 11/25/22 50 mg tablet Previous Rx's Medication Instructions Recorded levofloxacin 500 mg tablet 500 mg PO DAILY #7 tabs 02/19/22 gabapentin 600 mg tablet 600 mg PO BID #60 tabs 03/07/22 Allergies Allergy/AdvReac Type Severity Reaction Status Date / Time No Known Allergies Allergy Verified 11/25/22 19:50 [facility] Disclaimer: The information contained in this section may have been updated after the patient was seen, as this information can be updated by other users. Medical History Benign meningioma of brain Breast cancer COPD (chronic obstructive pulmonary disease) History of falling Low body mass index (BMI) Lung cancer Meningioma Schizophrenia Tobacco use Weak Social History (Reviewe
[2022-12-27 14:44] LABS: POC Glucose,Bedside 87 (70-110)
[2022-12-27 14:46] LABS: Basophils # 0.1 K/mm3 (0-0.2); Basophils % 1.6 % (0.1-2.0); Eosinophils # 0.1 K/mm3 (0.0-0.4); Eosinophils % 1.7 % (0.1-12.0); Hematocrit 41.7 % (37.0-47.0); Hemoglobin 13.1 g/dL (12.2-16.2); Lymphocytes # 0.6 K/mm3 (0.7-4.5); Lymphocytes % 10.1 % (10-50); Mean Corpuscular HGB Conc 31.4 g/dL (31.8-35.4); Mean Corpuscular Hemoglobin 27.1 pg (27.0-31.2); Mean Corpuscular Volume 86.4 fl (81-99); Mean Platelet Volume 7.8 fl (7.4-10.4); Monocytes # 0.2 K/mm3 (0.1-1.0); Monocytes % 3.8 % (1.7-9.3); Neutrophils # 4.9 K/mm3 (1.8-7.8); Neutrophils % 82.9 % (37.0-80.0); Platelet Count 251 K/mm3 (142-424); Red Blood Count 4.83 M/mm3 (4.20-5.40); Red Cell Distribution Width 15.1 % (11.5-17.5); White Blood Count 5.9 K/mm3 (4.8-10.8)
--- NOTE | 2022-12-27 14:48 | PC.NURSE ---
14:15 Pt arrived to nursing station with MD, RN, and NCT at bedside.
--- NOTE | 2022-12-27 14:48 | PC.NURSE ---
14:[address] Insertion of 20g LAC.
[2022-12-27 14:49] LABS: Chloride 108 mmol/L (98-107); Sodium 139 mmol/L (136-145)
--- NOTE | 2022-12-27 14:49 | PC.NURSE ---
2:29p To room 04. Pt assisted into gown, placed on telemetry, labs collected, & glucose (87) and EKG completed.
--- NOTE | 2022-12-27 14:49 | PC.NURSE ---
DURAN HEMPHILL speaking with hal
[2022-12-27 14:50] LABS: Potassium 3.5 mmoL/L (3.5-5.1)
[2022-12-27 14:52] LABS: Blood Urea Nitrogen 10 mg/dl (7-17); Creatinine Clearance Estimated 60 mL/min (50-200); Estimated Glomerular Filt Rate 81 ml/min (>60); GFR (African American) 98 ML/MIN (>60)
[2022-12-27 14:53] LABS: Activated Partial Thrombo Time 30.2 seconds (22.8-30.6); Anion Gap 5.5 mEq/L (5-15); Calcium 8.3 mg/dl (8.4-10.2); Carbon Dioxide 29 mmol/L (22.0-30.0); Glucose 97 mg/dl (74-100); INR 1.05 (0.9-1.1); Prothrombin Time 11.3 seconds (10.1-12.5)
--- NOTE | 2022-12-27 14:53 | PC.NURSE ---
Contacting [facility] stroke team at this time
--- NOTE | 2022-12-27 14:54 | PC.NURSE ---
Radiology at BS for Chest XR
[2022-12-27 15:00] VITALS: BP 166/81; PULSE 66; RESP 22; O2SAT 94
[2022-12-27 15:06] LABS: Troponin I < 0.01 ng/ml (0.00-0.034)
--- NOTE | 2022-12-27 15:25 | PC.NURSE ---
Rounded on pt.; call light within reach and bed alarm on
--- NOTE | 2022-12-27 15:29 | PC.NURSE ---
DURAN HEMPHILL speaking with [facility]
--- NOTE | 2022-12-27 15:32 | PC.NURSE ---
Dr. Nasir ruano MD at [facility].
--- NOTE | 2022-12-27 15:56 | PC.NURSE ---
Report given to HOLLY Nolan at [facility] ([phone]).
--- NOTE | 2022-12-27 15:56 | PC.NURSE ---
notified [facility] of need for transport
--- NOTE | 2022-12-27 16:27 | PC.NURSE ---
Called [facility] to communicate EMS has left with patient.
[2022-12-27 16:29] VITALS: BP 163/82; PULSE 64; RESP 16; TEMP 36.8
== END 2022-12-27 16:33 | disposition short-term general hospital (02) ==
PROVIDERS: Emergency Provider Emergency Medicine; PCP Emergency Medicine
DX: I63.9 Cerebral infarction, unspecified (principal); I69.351 Hemiplegia and hemiparesis following cerebral infarction affecting right dominant side; J44.9 Chronic obstructive pulmonary disease, unspecified; I25.10 Atherosclerotic heart disease of native coronary artery without angina pectoris; F20.9 Schizophrenia, unspecified; F17.210 Nicotine dependence, cigarettes, uncomplicated; Z85.3 Personal history of malignant neoplasm of breast; Z85.118 Personal history of other malignant neoplasm of bronchus and lung
CPT/HCPCS: 70450; 70496; 70498; 71045; 80048; 82962; 84484; 85025; 85610; 85730; 93005; 99285; Q9967

== ENCOUNTER → 2023-02-13 10:06 | Outpatient (CLI) | payer MEDICARE, MEDICAID, SELFPAY ==
--- NOTE | 2023-02-13 10:10 | MM_ITS ---
PROCEDURE INFORMATION: Exam: MG Right Screening 3D Mammography Exam date and time: 02/13/2023 10:08 AM Age: 77 years old Clinical indication: Screening examination; Personal history of left breast cancer; Mastectomy TECHNIQUE: Imaging protocol: Right Screening tomosynthesis and 2D mammography including computer-aided detection (CAD) when performed. COMPARISON: 1. MG MM DIG SC MAMM UNILAT RT CAD 02/10/2022 10:38 AM 2. MG DXRT MM Dig mamm DX unilat RT CAD 08/09/2018 4:06 PM FINDINGS: MAMMOGRAPHY: Breast composition: There are scattered areas of fibroglandular density. Mass: None. Architectural distortion: None. Calcifications: No suspicious calcifications. Asymmetric density: None. Skin thickening: None. Axillary adenopathy: None. The patient is status post left mastectomy IMPRESSION: No mammographic evidence of malignancy. Annual screening is recommended unless otherwise clinically indicated. ASSESSMENT: BI-RADS Category 1: Negative
== END ==
PROVIDERS: PCP Nurse Practitioner Family; Visit Provider Internal Medicine Medical Oncology
DX: Z12.31 Encounter for screening mammogram for malignant neoplasm of breast (principal)
CPT/HCPCS: 77063; 77067

== ENCOUNTER 2023-03-15 15:09 | Emergency (ER) | payer MEDICARE, MEDICAID, SELFPAY ==
[2023-03-15] VITALS (8 sets, daily range): BP systolic 145–209; BP diastolic 63–110; PULSE 63–73; RESP 16–20; TEMP 36.7–37; O2SAT 95–98
--- NOTE | 2023-03-15 15:11 | CT_ITS ---
PROCEDURE INFORMATION: Exam: CT Head Without Contrast Exam date and time: 03/15/2023 3:21 PM Age: 77 years old Clinical indication: Other: Agitated; Prior surgery; Surgery date: 6+ months; Surgery type: Brain; Additional info: Agitation TECHNIQUE: Imaging protocol: Computed tomography of the head without contrast. Radiation optimization: All CT scans at this facility use at least one of these dose optimization techniques: automated exposure control; mA and/or kV adjustment per patient size (includes targeted exams where dose is matched to clinical indication); or iterative reconstruction. REPORTING DATA: Count of CT and Cardiac NM exams in prior 12 months: This patient has received 5 known CTs and 0 known cardiac nuclear medicine studies in the 12 months prior to the current study. COMPARISON: CT HEAD/BRAIN WO CON 12/27/2022 2:21 PM FINDINGS: Brain: Large region of encephalomalacia/gliosis in the left frontotemporoparietal region, right frontal lobe, and right occipital lobe are re-identified. There are scattered hypodensities in the periventricular and subcortical white matter. The appearance is nonspecific, but most likely represents chronic small vessel disease in a person of this age. Cerebral ventricles: Expected ex vacuo dilation of the left lateral ventricular body. Ventricles and CSF containing spaces are otherwise maintained. No hydrocephalus or midline shift is identified. Pituitary gland and sella: Sellar/parasellar structures, craniocervical junction and orbits are unremarkable. Paranasal sinuses: Visualized sinuses are unremarkable. No fluid levels. Mastoid air cells: Visualized mastoid air cells are well aerated. Bones/joints: Postoperative changes related to left anterior craniotomy. There is redemonstration of dural thickening deep to the craniotomy site. Soft tissues: Unremarkable. Vasculature: Advanced calcifications in vertebral arteries and cavernous carotid arteries bilaterally. Other findings: Left wallerian degeneration noted. IMPRESSION: No acute intracranial abnormality. Unchanged multiple regions of encephalomalacia/gliosis.
--- NOTE | 2023-03-15 15:52 | PC.NURSE ---
dietary called to food tray for pt.
--- NOTE | 2023-03-15 15:52 | PC.NURSE ---
lab at bedside for straight stick for blood work
--- NOTE | 2023-03-15 16:04 | PC.NURSE ---
checked on pt eating her tray, tap charles at bedside
[2023-03-15 16:14] LABS: Basophils % 0.8 % (0.1-2.0); Eosinophils # 0.1 K/mm3 (0.0-0.4); Eosinophils % 2.1 % (0.1-12.0); Hemoglobin 13.1 g/dL (12.2-16.2); Lymphocytes # 0.9 K/mm3 (0.7-4.5); Lymphocytes % 15.8 % (10-50); Mean Corpuscular HGB Conc 30.6 g/dL (31.8-35.4); Mean Corpuscular Volume 88.2 fl (81-99); Monocytes # 0.3 K/mm3 (0.1-1.0); Neutrophils % 75.4 % (37.0-80.0); Platelet Count 278 K/mm3 (142-424); Red Blood Count 4.87 M/mm3 (4.20-5.40); Red Cell Distribution Width 14.5 % (11.5-17.5); White Blood Count 5.4 K/mm3 (4.8-10.8)
[2023-03-15 17:01] LABS: Microscopic, Urine URINE MICROSCOPIC (MICROSCOPIC)
[2023-03-15 17:24] LABS: Appearance,Urine CLEAR (Clear); Bilirubin,Urine Negative (Negative); Blood, Urine 1+ (Negative); Color,Urine YELLOW (Yellow); Glucose,Urine (UA) Negative (Negative); Ketones,Urine Negative (Negative); Leukocyte Esterase,Urine 1+ (Negative); Nitrate,Urine POSITIVE (Negative); Protein,Urine 2+ (Negative)
[2023-03-15 17:43] LABS: Bacteria,Urine QNS /lpf; RBC,Urine QNS #/hpf (0-3); Squamous Epithelial Cell,Urine QNS #/hpf (0-5); WBC,Urine QNS #/hpf (0-3)
--- NOTE | 2023-03-15 17:49 | HMH.EDGENADL ---
Discharge Plan Disposition Patient Disposition: Home, Self-Care Condition: Fair Prescriptions Prescriptions: New cefdinir 300 mg capsule 300 mg PO BID 5 Days Qty: 10 0RF No Action citalopram 20 mg tablet 20 mg PO famotidine 20 mg tablet 20 mg PO amlodipine 10 mg tablet 10 mg PO letrozole 2.5 mg tablet 2.5 mg PO ipratropium-albuterol 0.5 mg-3 mg(2.5 mg base)/3 mL solution for nebulization 3 ml INHALATION Q4H PRN (Reason: asthma) topiramate 50 mg tablet 50 mg PO DAILY hyoscyamine sulfate 0.125 mg tablet 0.125 mg PO Q4H PRN lorazepam 0.5 mg tablet 0.5 mg PO Q6H PRN gabapentin 600 mg tablet 600 mg PO BID Qty: 60 5RF acetaminophen 500 MG tablet 500 mg PO TID ondansetron 8 MG tablet,disintegrating 8 mg PO Q8H PRN (Reason: Nausea) sennosides-docusate sodium 8.6-50 mg tablet 2 tab-cap PO DAILY PRN (Reason: CONSTIPATION) polyethylene glycol 3350 17 GM powder in packet 17 g G-TUBE BID aspirin 81 mg tablet,delayed release (DR/EC) 81 mg PO DAILY Referrals Follow up/Referrals: Haider Beauchamp MD [Primary Care Provider] - See instructions Clinical Impressions Clinical Impression: Acute UTI Instructions Patient Instructions: DI for Urinary Tract Infection (UTI) Discharge ED Provider: Bob Castillo General Adult HPI General Chief complaint: Altered Mental Status Stated complaint: ams Time Seen by Provider: 03/15/23 15:15 Mode of Arrival: EMS Source of Information: EMS Limitations: No Limitations Description of Symptoms (Recalled from ER Triage Doc. by RN): 77 yo F transferred to ED via EMS for combativeness and agression. symptoms began today. History of Present Illness HPI narrative: Patient is a 77-year-old female well-known to the emergency department with a past medical history of CVA, recurrent urinary tract infection, COPD who presents with concern for combativeness and aggression. EMS reports that she is at her normal baseline. The staff at the facility said that she got very aggressive today. She does have a history of becoming aggressive with staff in the past. She denies any chest or abdominal pain. Denies any fever or chills. Denies any urinary symptoms. Denies any diarrhea. No vomiting. Related Data Home Medications Medication Instructions Recorded Confirmed polyethylene glycol 3350 17 gram 17 g G-tube BID CONSTIPATION 08/10/19 11/25/22 oral powder packet acetaminophen 500 mg tablet 500 mg PO TID Pain 08/17/19 11/25/22 ondansetron 8 mg disintegrating 8 mg PO Q8H PRN Nausea 08/17/19 11/25/22 tablet ipratropium 0.5 mg-albuterol 3 mg 3 ml inhalation Q4H PRN asthma 05/25/20 11/25/22 (2.5 mg base)/3 mL nebulization soln amlodipine 10 mg tablet 10 mg PO 07/18/21 11/25/22 citalopram 20 mg tablet 20 mg PO 07/18/21 11/25/22 famotidine 20 mg tablet 20 mg PO 07/18/21 11/25/22 letrozole 2.5 mg tablet 2.5 mg PO 07/18/21 11/25/22 aspirin 81 mg tablet,delayed 81 mg PO DAILY Blood thinner 07/29/21 11/25/22 release topiramate 50 mg tablet 50 mg PO DAILY 02/03/22 11/25/22 hyoscyamine sulfate 0.125 mg tablet 0.125 mg PO Q4H PRN 08/22/22 11/25/22 lorazepam 0.5 mg tablet 0.5 mg PO Q6H PRN 08/22/22 11/25/22 sennosides 8.6 mg-docusate sodium 2 tab-cap PO DAILY PRN CONSTIPATION 08/22/22 11/25/22 50 mg tablet Previous Rx's Medication Instructions Recorded gabapentin 600 mg tablet 600 mg PO BID #60 tabs 03/07/22 cefdinir 300 mg capsule 300 mg PO BID 5 days #10 caps 03/15/23 Allergies Allergy/AdvReac Type Severity Reaction Status Date / Time No Known Allergies Allergy Verified 03/05/23 10:29 [facility] Disclaimer: The information contained in this section may have been updated after the patient was seen, as this information can be updated by other users. Medical History Benign meningioma of brain Breast cancer COPD (ch
--- NOTE | 2023-03-15 18:07 | PC.NURSE ---
pt voided i changed brief placed clean one and she is dressed and waiting to be discharged back to redig
--- NOTE | 2023-03-15 18:11 | PC.NURSE ---
EMS called for transport
== END 2023-03-15 18:34 | disposition home or self-care (01) ==
PROVIDERS: Emergency Provider Student in an Organized Health Care Education/Training Program; PCP Emergency Medicine
DX: N39.0 Urinary tract infection, site not specified (principal); R41.82 Altered mental status, unspecified; Z87.891 Personal history of nicotine dependence
CPT/HCPCS: 36415; 70450; 81001; 85025; 87086; 87088; 87186; 99284; 99285